=== PATIENT | female | born 1945 | race Caucasian/White ===

== ENCOUNTER 2020-04-23 12:33 | Outpatient (REF) | payer OTHER, SELFPAY ==
[2020-04-23 12:54] LABS: COVID-19 Test Negative (Negative)
== END 2020-04-23 12:34 | disposition home or self-care (01) ==
LOC: HO.EMPCOV 12:33
PROVIDERS: PCP Internal Medicine; Visit Provider Internal Medicine
DX: Z20.828 Contact with and (suspected) exposure to other viral communicable diseases (principal)
CPT/HCPCS: 87635; C9803

== ENCOUNTER 2020-06-04 18:10 | Emergency (ER) | payer MEDICARE, OTHER, SELFPAY ==
[2020-06-04 18:28] VITALS: BP 158/70; PULSE 79; RESP 18; TEMP 36.8; O2SAT 95
[2020-06-04 19:15] VITALS: BP 158/70; PULSE 79; RESP 18; TEMP 36.8; O2SAT 95; BMI 26.6
--- NOTE | 2020-06-04 19:29 | CT_ITS ---
Indication: Fall EXAMINATION: CT cervical spine, CT brain. Axial imaging with coronal and sagittal reformatted images Radiation dose 705 CT brain; No midline shift. There is no mass effect. There is no hemorrhage. The basilar cisterns appear patent. The posterior fossa is grossly within normal limits. No extra-axial collection. No fracture on the bone windows. There is sinus disease. CT cervical spine; Degenerative changes and some reversal of the normal lordosis which may be due to position or spasm. There is no fracture or dislocation. CT/CT head/brain wo con IMPRESSION: Negative acute noncontrast CT of the brain. No fracture or dislocation in the cervical spine. Degenerative changes and reversal of the normal lordosis which may be due to position or spasm
--- NOTE | 2020-06-04 19:29 | CT_ITS ---
Indication: Fall EXAMINATION: CT cervical spine, CT brain. Axial imaging with coronal and sagittal reformatted images Radiation dose 705 CT brain; No midline shift. There is no mass effect. There is no hemorrhage. The basilar cisterns appear patent. The posterior fossa is grossly within normal limits. No extra-axial collection. No fracture on the bone windows. There is sinus disease. CT cervical spine; Degenerative changes and some reversal of the normal lordosis which may be due to position or spasm. There is no fracture or dislocation. CT/CT cervical spine wo con IMPRESSION: Negative acute noncontrast CT of the brain. No fracture or dislocation in the cervical spine. Degenerative changes and reversal of the normal lordosis which may be due to position or spasm
--- NOTE | 2020-06-04 19:35 | CT_ITS ---
EXAMINATION: INDICATION: TRAUMA EXAMINATION: CONTRAST ENHANCED CT OF THE CHEST ABDOMEN PELVIS. 85 ML OMNIPAQUE 350. RADIATION DOSE 849 AXIAL IMAGING WITH CORONAL AND SAGITTAL REFORMATTED IMAGES. CT CHEST; THE THORACIC INLET IS FELT TO BE WITHIN NORMAL LIMITS. CENTRALLY THERE IS NO ADENOPATHY. NO EXTRAVASATION OF CONTRAST IS SEEN HERE. THERE IS NO PNEUMOTHORAX OR EFFUSION IN THE LUNGS. MILD LEFT BASILAR ATELECTASIS OR SCARRING IN THE LINGULA. 5 MM AREA OF GROUNDGLASS CHANGE IN THE RIGHT UPPER LUNG. IMAGE 91 PROBABLE ATELECTASIS OR SCARRING IN THE RIGHT MIDDLE LOBE ANTERIOR. LEFT LUNG; 3 MM NODULE LEFT UPPER LUNG. IMAGE 147 UPPER ABDOMEN; LIVER IS WITHIN NORMAL LIMITS. THE SPLEEN IS WITHIN NORMAL LIMITS. REGION THE PANCREAS IS UNREMARKABLE AREA THE ADRENAL GLANDS IS WITHIN NORMAL LIMITS. PROBABLE EVOLVING CYSTIC CHANGE IN THE KIDNEYS. NONOBSTRUCTING RENAL CALCULI ARE NOTED. THERE IS NO EXTRAVASATION OF CONTRAST. THE BOWEL PATTERN IS FELT TO BE NONOBSTRUCTING. THE BLADDER IS WITHIN NORMAL LIMITS. THE ANTERIOR ABDOMINAL WALL IS WITHIN NORMAL LIMITS. THERE IS NO BULKY ADENOPATHY HERE. NO SUSPICIOUS FLUID COLLECTION. THE PELVIS IS UNREMARKABLE. Prominent uterus for age. Review of the bone windows does not demonstrate evidence for fracture. CT/CT abdomen pelvis w con IMPRESSION: No acute finding in the chest abdomen pelvis. No evidence for visceral injury. No fracture is seen. Prominent uterus for age. Nonobstructing renal calculi Some scattered lung nodularity. If there are risk factors for lung malignancy consider low-dose follow-up scan in 9 months to one year
[2020-06-04 20:00] LABS: MANUAL DIFF FLAG NO
[2020-06-04 20:02] LABS: Basophils Percent Auto 0.2 % (0-2); Hematocrit 38.4 % (37-47); Imm Gran Abs Auto 0.03 X10*3/uL (0.00-0.03); Imm Gran Pct Auto 0.3 % (0.0-0.4); Lymphocytes Absolute Auto 1.1 X10*3/uL (1.2-4.9); Lymphocytes Percent Auto 11.3 % (20-40); Mean Corpuscular HGB Conc 33.9 g/dl (31.0-35.0); Mean Corpuscular Hemoglobin 32.6 pg (27.0-33.0); Mean Corpuscular Volume 96.2 fL (80-98); Mean Platelet Volume 8.7 fL (9.4-12.3); Monocytes Absolute Auto 0.6 X10*3/uL (0.1-1.2); Monocytes Percent Auto 6.5 % (2-11); Neutrophils Absolute Auto 8.1 X10*3/uL (2.0-8.3); Neutrophils Percent Auto 81.7 % (45-73); Platelet Count 200 X10*3/uL (160-400); Red Blood Count 3.99 X10*6/uL (4.20-5.50); Red Cell Distribution Width 12.3 % (11.0-16.0); White Blood Count 9.9 X10*3/uL (4.8-10.8)
[2020-06-04 20:07] LABS: INTERNATIONAL NORM RATIO 1.1 (0.9-1.1); Prothrombin Time 12.5 SEC (10.8-13.0)
[2020-06-04 20:10] LABS: Partial Thromboplastin Time 33.1 SEC (24.1-38.0)
[2020-06-04 20:28] LABS: Alanine Aminotransferase 30 U/L (0-31); Albumin Level 4.4 g/dL (3.5-5.0); Alkaline Phosphatase 90 U/L (39-117); Anion Gap 13 (12-20); Aspartate Amino Transferase 35 U/L (5-31); Bilirubin Total 0.4 mg/dL (0.0-1.0); Blood Urea Nitrogen 23 mg/dL (9-16); Calcium 9.1 mg/dL (8.4-10.2); Carbon Dioxide 26 mmol/L (22-29); Chloride 107 mmol/L (96-108); Estimated Glomerular Filt Rate > 60; Glucose Random 101 mg/dL (60-115); Potassium 4.7 mmol/l (3.3-5.1); Sodium 141 mmol/L (135-145); Total Protein 7.7 g/dL (6.5-8.0)
--- NOTE | 2020-06-04 20:53 | ED.FALL ---
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 On a couch about 2-1/2 feet above the ground trying to fix a current lost her balance and fell backwards hitting the right side of her lower chest and abdomen on the ground and striking her head. She denies any LOC. States she has pain on the right-side rib abdomen area and mild pain posterior head. She denies any LOC. Denies any thinner use. This occurred about 45 minutes prior to arrival.. She denies any prodromal symptoms, no chest pain or dizziness prior to fall. <Andrea Chinchilla NP - Last Filed: 06/14/20 12:46> MD complaint: fall <Andrea Chinchilla NP - Last Filed: 06/14/20 12:46> Onset (ago): minute(s) (45) <Andrea Chinchilla NP - Last Filed: 06/14/20 12:46> Fall from: standing <Andrea Chinchilla NP - Last Filed: 06/14/20 12:46> Fall witnessed: yes, by family <Andrea Chinchilla NP - Last Filed: 06/14/20 12:46> Place fall occurred: home <Andrea Chinchilla NP - Last Filed: 06/14/20 12:46> Loss of consciousness: none <Andrea Chinchilla NP - Last Filed: 06/14/20 12:46> Prolonged down time: no <Nadrea Chinchilla, OCCUPATIONAL HEALTH PHYSICIAN - Last Filed: 06/14/20 12:46> Symptoms prior to fall: none <FATEMHE Juarez Last Filed: 06/14/20 12:46> Location of injury: head, chest and abdomen <FATEMEH Juarez Last Filed: 06/14/20 12:46> Related Data Home Medications: Previous Rx's Medication Instructions Recorded lidocaine [Lidoderm] 1 patch TOPICAL DAILY #15 ea 06/04/20 <FATEMEH Juarez Last Filed: 06/14/20 12:46> Allergies/Adverse Reactions: Allergies Allergy/AdvReac Type Severity Reaction Status Date / Time azithromycin [From ZITHROMAX] Allergy Unknown RASH Unverified 01/30/20 14:48 epinephrine [EPINEPHRINE] Allergy Unknown RAPID Unverified 01/30/20 14:48 HEART RATE <FATEMEH Juarez Last Filed: 06/14/20 12:46> Review of Systems Review of Systems: Constitutional: No Weight loss, No Fever, No Chills, No Night Sweats, No Fatigue, No Malaise ENT/Mouth: No Hearing loss, No Ear Pain, No Nasal Congestion, No Sinus Pain, No Hoarseness, No sore throat, No Rhinorrhea, No Swallowing Difficulty Eyes: No Eye Pain, No Swelling, No Redness, No Foreign Body, No Discharge, No Vision Changes Cardiovascular: No Chest Pain, No SOB, No Dyspnea on Exertion, No Orthopnea, No Edema, No Palpitations Respiratory: No Cough, No Sputum, No Wheezing, No Smoke Exposure, No Dyspnea Gastrointestinal: No Nausea, No Vomiting, No Diarrhea, No Constipation, No Hematochezia, No Melena Genitourinary: no irregular bleeding, No Dysuria, No Urinary Frequency, No Hematuria, No Urinary Incontinence, No Urgency, No Flank Pain, No Urinary Flow Changes, No Hesitancy Musculoskeletal: No joint pain, No Myalgias, No Joint Swelling Skin: No Skin Lesions, No rash Neuro: No Weakness, No Numbness, No Paresthesias, No Loss of Consciousness, No Dizziness, mild parietal Headache Psych: No Social Issues Heme/Lymph: No Bruising, No Bleeding,No Lymphadenopathy Endocrine: No Polyuria, No Polydipsia, No Temperature Intolerance <FATEMEH Juarez Last Filed: 06/14/20 12:46> Yes all other systems are reviewed and are negative <Andrea Chinchilla NP - Last Filed: 06/14/20 12:46> FOR[facility]LY [facility] Past Medical History Medical History: Medical History (Updated 06/05/20 @ 00:00 by Abigail Boles) Asthma Bronchitis IBS (irritable bowel syndrome) <Andrea Chinchilla NP - Last Filed: 06/14/20 12:46> Surgical History: Surgical History (Updated 06/04/20 @ 19:20 by Radha Erickson) H/O knee surgery <Andrea Chinchilla NP - Last Filed: 06/14/20 12:46> Physical Exam Vital Signs: Vital Signs: Last Vital Signs Temp 98.2 F 06/04/20 19:15 Pulse 72 06/04/20 20:54 Resp 16 06/04/20 20:54 BP 172/79 H 06/04/20 20:54 Pulse Ox 95 06/04/20 20:54 Body Mass Index 26.6 Reviewed <Andrea Chinchilla NP - Last Filed: 06/14/20 12:46> Vital Signs: Last Vital Signs Temp 98.2 F 06/04/20 19:15 Pulse 72 06/04/20 20:54 Resp 16 06/04/20 20:54 BP 172/79 H 06/04/20 20:54 Pulse Ox 95 06/04/20 20:54 Body Mass Index 26.6 <Mya Mario NP - Last Filed: 06/04/20 23:03> Vital Signs: Last Vital Signs Temp 98.2 F 06/04/20 19:15 Pulse 72 06/04/20 20:54 Resp 16 06/04/20 20:54 BP 172/79 H 06/04/20 20:54 Pulse Ox 95 06/04/20 20:54 Body Mass Index 26.6 <Jose Chanel MD - Last Filed: 06/17/20 11:27> Const: General: cooperative and healthy appearing; No acute distress or intoxicated appearing <Andrea Chinchilla NP - Last Filed: 06/14/20 12:46> Nutritional Appearance: average body habitus <Andrea Chinchilla NP - Last Filed: 06/14/20 12:46> Orientation/consciousness: patient oriented x3 <Andrea Chinchilla [facility] Last Filed: 06/14/20 12:46> HENMT: Head: Yes normal to inspection <Andrea Chinchilla [facility] Last Filed: 06/14/20 12:46> Ears: hearing grossly normal bilaterally <Andrea Renée - Last Filed: 06/14/20 12:46> Eyes: General: appearance normal, both eyes and all related structures <Andrea Renée [facility] Last Filed: 06/14/20 12:46> Visual [place]: normal visual [place]banks by confrontation <[facility] Renée [facility] Last Filed: 06/14/20 12:46> Neck: Neck: Yes normal visual inspection, No positive Brudzinski's sign, No positive Kernig's sign and No tender <Andrea Renée - Last Filed: 06/14/20 12:46> Thyroid: Thyroid normal <[facility] Chinchilla [facility] Last Filed: 06/14/20 12:46> Chest: Chest palpation & inspection: normal inspection of the chest and tenderness (Mild tender palpation over the right lateral aspect of the inferior) other (Chest wall and right upper quadrant.) <[facility] Renée - Last Filed: 06/14/20 12:46> Resp: Effort & Inspection: normal respiratory effort <Andrea Chinchilla [facility] Last Filed: 06/14/20 12:46> Auscultation: clear to auscultation bilaterally <Andrea Renée [facility] Last Filed: 06/14/20 12:46> Cardio: Jugular venous distension: no JVD <[facility] Chinchilla, - Last Filed: 06/14/20 12:46> Rhythm: regular rhythm <[facility] Chinchilla [facility] Last Filed: 06/14/20 12:46> Heart sounds: S1 normal heart sound present and S2 normal heart sound present <[facility] Chinchilla, OCCUPATIONAL HEALTH PHYSICIAN - Last Filed: 06/14/20 12:46> GI: Inspection: Yes normal to inspection <[facility] Chinchilla - Last Filed: 06/14/20 12:46> Percussion: Yes normal to percussion <[facility] Chinchilla, OCCUPATIONAL HEALTH PHYSICIAN - Last Filed: 06/14/20 12:46> Auscultation: normal bowel sounds <Andrea Chinchilla NP - Last Filed: 06/14/20 12:46> : General: Yes no CVA tenderness <Andrea Chinchilla NP - Last Filed: 06/14/20 12:46> Back/Spine/Pelvis: Back: no CVA tenderness <Andrea Chinchilla NP - Last Filed: 06/14/20 12:46> Skin: General skin exam: no rashes or lesions noted <Andrea Chinchilla NP - Last Filed: 06/14/20 12:46> Neuro: General: patient oriented x3 <Andrea Chinchilla NP - Last Filed: 06/14/20 12:46> Extrem: General: Yes normal to inspection <Andrea Chinchilla NP - Last Filed: 06/14/20 12:46> Course Course Course Narrative: 2300-imaging unremarkable with the exception of incidental pulmonary nodules. Patient was told of this and she was given a copy of the report. Will be discharged home with PCP follow-up. Reviewed worrisome signs and symptoms and when to return to the emergency department. Comfortable discharge home. <Mya Mario NP - Last Filed: 06/04/20 23:03> I have reviewed the chart <Jose Chanel MD - Last Filed: 06/17/20 11:27> Reevaluation(s) Reevaluation #1: 2110 Labs overall stable. Cleared for CT as ordered. Signed out to night team pending disposition. <Andrea Chinchilla NP - Last Filed: 06/14/20 12:46> MDM - Fall MDM Narrative Medical decision making narrative: In review 75-year-old female otherwise relatively healthy and independent fall from about 2-1/2 feet onto her right side did hit her head there was no LOC having pain at the frontal area of her scalp and a right-sided chest and abdomen from hitting it on the computer table and the ground. Will check labs, CT head neck rule out acute fracture, CT chest for rib fracture, CT abdomen for acute intra-abdominal process. States if she holds still not much pain at this time okay with trying just Tylenol and lidocaine. States she does not wanting stronger. <Andrea Chinchilla NP - Last Filed: 06/14/20 12:46> Differential Diagnosis Differential diagnosis: Likely fracture (Rib fracture, contusion) and concussion without loss of consciousness; Unlikely syncope, dislocation, compression fracture and concussion with loss of consciousness <Andrearomeo Chinchilla NP - Last Filed: 06/14/20 12:46> Medical Records Attestation: I reviewed the patient's medical records. <Andrea ChinchillaFATEMEH guzmán - Last Filed: 06/14/20 12:46> Lab Data Attestation: I reviewed the patient's lab results. <Andrearomeo Chinchilla NP - Last Filed: 06/14/20 12:46> Result diagrams: : 06/04/20 19:54 06/04/20 19:54 <Andrearomeo Chinchilla NP - Last Filed: 06/14/20 12:46> Labs: Lab Results 06/04/20 06/04/20 06/04/20 Range/Units 19:54 19:54 19:54 WBC 9.9 (4.8-10.8) X10*3/uL RBC 3.99 L (4.20-5.50) X10*6/uL Hgb 13.0 (12.0-16.0) g/dl Hct 38.4 (37-47) % MCV 96.2 (80-98) fL MCH 32.6 (27.0-33.0) pg MCHC 33.9 (31.0-35.0) g/dl RDW 12.3 (11.0-16.0) % Plt Count 200 (160-400) X10*3/uL MPV 8.7 L (9.4-12.3) fL Immature Gran % (Auto) 0.3 (0.0-0.4) % Neut % (Auto) 81.7 H (45-73) % Lymph % (Auto) 11.3 L (20-40) % Blanco % (Auto) 6.5 (2-11) % Eos % (Auto) 0.0 (0-4) % Baso % (Auto) 0.2 (0-2) % Lymph # (Auto) 1.1 L (1.2-4.9) X10*3/uL Blanco # (Auto) 0.6 (0.1-1.2) X10*3/uL Eos # (Auto) 0.0 (0.0-0.4) X10*3/uL Baso # (Auto) 0.0 (0.0-0.2) X10*3/uL Abs Immat Gran (auto) 0.03 (0.00-0.03) X10*3/uL Absolute Neuts (auto) 8.1 (2.0-8.3) X10*3/uL Absolute Nucleated RBC 0.000 (0.0-0.012) X10*3/uL Nucleated RBC % (auto) 0.0 (0.0-0.2) /100WBC PT 12.5 (10.8-13.0) SEC INR 1.1 (0.9-1.1) APTT 33.1 (24.1-38.0) SEC Sodium 141 (135-145) mmol/L Potassium 4.7 (3.3-5.1) mmol/l Chloride 107 (96-108) mmol/L Carbon Dioxide 26 (22-29) mmol/L Anion Gap 13 (12-20) BUN 23 H (9-16) mg/dL Creatinine 0.70 (0.5-1.4) mg/dL Estim Creat Clear Calc 74.0 Estimated GFR > 60 Random Glucose 101 (60-115) mg/dL Calcium 9.1 (8.4-10.2) mg/dL Total Bilirubin 0.4 (0.0-1.0) mg/dL AST 35 H (5-31) U/L ALT 30 (0-31) U/L Alkaline Phosphatase 90 (39-117) U/L Total Protein 7.7 (6.5-8.0) g/dL Albumin 4.4 (3.5-5.0) g/dL <Andrea Chinchilla NP - Last Filed: 06/14/20 12:46> Lab Results 06/04/20 06/04/20 06/04/20 Range/Units 19:54 19:54 19:54 WBC 9.9 (4.8-10.8) X10*3/uL RBC 3.99 L (4.20-5.50) X10*6/uL Hgb 13.0 (12.0-16.0) g/dl Hct 38.4 (37-47) % MCV 96.2 (80-98) fL MCH 32.6 (27.0-33.0) pg MCHC 33.9 (31.0-35.0) g/dl RDW 12.3 (11.0-16.0) % Plt Count 200 (160-400) X10*3/uL MPV 8.7 L (9.4-12.3) fL Immature Gran % (Auto) 0.3 (0.0-0.4) % Neut % (Auto) 81.7 H (45-73) % Lymph % (Auto) 11.3 L (20-40) % Blanco % (Auto) 6.5 (2-11) % Eos % (Auto) 0.0 (0-4) % Baso % (Auto) 0.2 (0-2) % Lymph # (Auto) 1.1 L (1.2-4.9) X10*3/uL Blanco # (Auto) 0.6 (0.1-1.2) X10*3/uL Eos # (Auto) 0.0 (0.0-0.4) X10*3/uL Baso # (Auto) 0.0 (0.0-0.2) X10*3/uL Abs Immat Gran (auto) 0.03 (0.00-0.03) X10*3/uL Absolute Neuts (auto) 8.1 (2.0-8.3) X10*3/uL Absolute Nucleated RBC 0.000 (0.0-0.012) X10*3/uL Nucleated RBC % (auto) 0.0 (0.0-0.2) /100WBC PT 12.5 (10.8-13.0) SEC INR 1.1 (0.9-1.1) APTT 33.1 (24.1-38.0) SEC Sodium 141 (135-145) mmol/L Potassium 4.7 (3.3-5.1) mmol/l Chloride 107 (96-108) mmol/L Carbon Dioxide 26 (22-29) mmol/L Anion Gap 13 (12-20) BUN 23 H (9-16) mg/dL Creatinine 0.70 (0.5-1.4) mg/dL Estim Creat Clear Calc 74.0 Estimated GFR > 60 Random Glucose 101 (60-115) mg/dL Calcium 9.1 (8.4-10.2) mg/dL Total Bilirubin 0.4 (0.0-1.0) mg/dL AST 35 H (5-31) U/L ALT 30 (0-31) U/L Alkaline Phosphatase 90 (39-117) U/L Total Protein 7.7 (6.5-8.0) g/dL Albumin 4.4 (3.5-5.0) g/dL <Mya Mario NP - Last Filed: 06/04/20 23:03> Lab Results 06/04/20 06/04/20 06/04/20 Range/Units 19:54 19:54 19:54 WBC 9.9 (4.8-10.8) X10*3/uL RBC 3.99 L (4.20-5.50) X10*6/uL Hgb 13.0 (12.0-16.0) g/dl Hct 38.4 (37-47) % MCV 96.2 (80-98) fL MCH 32.6 (27.0-33.0) pg MCHC 33.9 (31.0-35.0) g/dl RDW 12.3 (11.0-16.0) % Plt Count 200 (160-400) X10*3/uL MPV 8.7 L (9.4-12.3) fL Immature Gran % (Auto) 0.3 (0.0-0.4) % Neut % (Auto) 81.7 H (45-73) % Lymph % (Auto) 11.3 L (20-40) % Blanco % (Auto) 6.5 (2-11) % Eos % (Auto) 0.0 (0-4) % Baso % (Auto) 0.2 (0-2) % Lymph # (Auto) 1.1 L (1.2-4.9) X10*3/uL Blanco # (Auto) 0.6 (0.1-1.2) X10*3/uL Eos # (Auto) 0.0 (0.0-0.4) X10*3/uL Baso # (Auto) 0.0 (0.0-0.2) X10*3/uL Abs Immat Gran (auto) 0.03 (0.00-0.03) X10*3/uL Absolute Neuts (auto) 8.1 (2.0-8.3) X10*3/uL Absolute Nucleated RBC 0.000 (0.0-0.012) X10*3/uL Nucleated RBC % (auto) 0.0 (0.0-0.2) /100WBC PT 12.5 (10.8-13.0) SEC INR 1.1 (0.9-1.1) APTT 33.1 (24.1-38.0) SEC Sodium 141 (135-145) mmol/L Potassium 4.7 (3.3-5.1) mmol/l Chloride 107 (96-108) mmol/L Carbon Dioxide 26 (22-29) mmol/L Anion Gap 13 (12-20) BUN 23 H (9-16) mg/dL Creatinine 0.70 (0.5-1.4) mg/dL Estim Creat Clear Calc 74.0 Estimated GFR > 60 Random Glucose 101 (60-115) mg/dL Calcium 9.1 (8.4-10.2) mg/dL Total Bilirubin 0.4 (0.0-1.0) mg/dL AST 35 H (5-31) U/L ALT 30 (0-31) U/L Alkaline Phosphatase 90 (39-117) U/L Total Protein 7.7 (6.5-8.0) g/dL Albumin 4.4 (3.5-5.0) g/dL <Jose Chanel MD - Last Filed: 06/17/20 11:27> Discharge Plan Discharge Clinical Impression: Contusion <Andrea Chinchilla NP - Last Filed: 06/14/20 12:46> Patient Disposition: Home, Self-Care <Andrea Chinchilla NP - Last Filed: 06/14/20 12:46> Instructions: Contusion in Adults (ED) <Andrea Chinchilla NP - Last Filed: 06/14/20 12:46> Additional Instructions: Your CT scan shows several pulmonary nodules. These are incidental findings noted on your CT. You were given a copy of the report and you can follow-up with her primary care doctor in regards to this. <Andrea Chinchilla NP - Last Filed: 06/14/20 12:46> Prescriptions: New lidocaine [Lidoderm] 5 % adhesive patch,medicated 1 patch topical DAILY Qty: 15 RF: 0 <Andrea Chinchilla NP - Last Filed: 06/14/20 12:46> Referrals: Geronimo Goodson MD [Primary Care Provider] - 2 days <Andrea Chinchilla NP - Last Filed: 06/14/20 12:46> Interventions: ED Discharge Assessment Last Done: 06/04/20 23:16 <Andrea Chinchilla NP - Last Filed: 06/14/20 12:46> Discharge Date/Time: 06/04/20 23:21 <Andrea Chinchilla NP - Last Filed: 06/14/20 12:46>
[2020-06-04 20:54] VITALS: BP 172/79; PULSE 72; RESP 16; O2SAT 95
[2020-06-04] MEDS: Acetaminophen 325 MG TABLET 975 MG PO (20:57)
[2020-06-04] MEDS: Lidocaine 4 % Patch ADH..PATCH 1 PATCH TRANSDERMA (20:58)
[2020-06-04] MEDS: iohexoL 350 MG/ML 100 ML INFUS..BTL IV (21:25)
--- NOTE | 2020-06-04 22:58 | P.EN_ITS ---
Event Note Date of Service: 06/04/20 Event Note: Pt developed A. fib with RVR w HR in the 120s to 130s. Confirmed w ith EKG. Pt given lopressor with response, and one dose of Lovenox 1mg/KG will consult cardio and obtain echo
== END 2020-06-04 23:21 | disposition home or self-care (01) ==
PROVIDERS: Nurse Practitioner Primary Care; Emergency Provider Emergency Medicine; PCP Internal Medicine
DX: S20.213A Contusion of bilateral front wall of thorax, initial encounter (principal); R91.1 Solitary pulmonary nodule; M54.2 Cervicalgia; G44.309 Post-traumatic headache, unspecified, not intractable; M54.6 Pain in thoracic spine; W19.XXXA Unspecified fall, initial encounter; Y93.9 Activity, unspecified; Y92.9 Unspecified place or not applicable; Y99.9 Unspecified external cause status
CPT/HCPCS: 36415; 70450; 71260; 72125; 74177; 80053; 85025; 85610; 85730; 99284; Q9967

== ENCOUNTER 2020-06-08 08:14 | Outpatient (REF) | payer MEDICARE, OTHER, SELFPAY ==
[2020-06-08 09:05] LABS: MANUAL DIFF FLAG NO
[2020-06-08 09:09] LABS: Basophils Percent Auto 0.6 % (0-2); Eosinophils Absolute Auto 0.1 X10*3/uL (0.0-0.4); Hematocrit 36.3 % (37-47); Imm Gran Abs Auto 0.02 X10*3/uL (0.00-0.03); Imm Gran Pct Auto 0.3 % (0.0-0.4); Lymphocytes Absolute Auto 2.9 X10*3/uL (1.2-4.9); Lymphocytes Percent Auto 44.3 % (20-40); Mean Corpuscular HGB Conc 33.1 g/dl (31.0-35.0); Mean Corpuscular Hemoglobin 32.1 pg (27.0-33.0); Mean Corpuscular Volume 97.1 fL (80-98); Mean Platelet Volume 9.1 fL (9.4-12.3); Monocytes Absolute Auto 0.6 X10*3/uL (0.1-1.2); Neutrophils Absolute Auto 2.9 X10*3/uL (2.0-8.3); Neutrophils Percent Auto 43.8 % (45-73); Platelet Count 183 X10*3/uL (160-400); Red Blood Count 3.74 X10*6/uL (4.20-5.50); Red Cell Distribution Width 12.4 % (11.0-16.0); White Blood Count 6.6 X10*3/uL (4.8-10.8)
[2020-06-08 09:11] LABS: Glucose Urine UA NEG (NEG); Leukocyte Esterase Urine TRACE (NEG); Nitrite Urine NEG (NEG); PH 6.5 (5.0-8.0); Urine Blood 2+ (NEG); Urine Ketones NEG (NEG); Urine Protein NEG (NEG-TRACE)
[2020-06-08 09:12] LABS: Appearance Urine HAZY; Color Urine YELLOW
[2020-06-08 09:20] LABS: Mucus Urine 1+ /LPF; Squamous Epithelial Cell Urine 1+ /LPF
[2020-06-08 09:31] LABS: Estimated Average Glucose 108 mg/dL; Hemoglobin A1c % 5.4 %
[2020-06-08 09:33] LABS: Creatinine Urine 132.96 mg/dL; Microalbum/Creatinine Ratio Ur 23.3 ug/mg cr
[2020-06-08 09:36] LABS: Alanine Aminotransferase 22 U/L (0-31); Albumin Level 3.9 g/dL (3.5-5.0); Alkaline Phosphatase 74 U/L (39-117); Anion Gap 14 (12-20); Aspartate Amino Transferase 21 U/L (5-31); Bilirubin Total 0.6 mg/dL (0.0-1.0); Blood Urea Nitrogen 16 mg/dL (9-16); Calcium 8.7 mg/dL (8.4-10.2); Carbon Dioxide 26 mmol/L (22-29); Chloride 107 mmol/L (96-108); Cholesterol 165 mg/dL; Estimated Glomerular Filt Rate > 60; Glucose Fasting 79 mg/dL (60-99); HDL Cholesterol 60 mg/dL; LDL Cholesterol Calculated 92 mg/dl; Potassium 3.8 mmol/l (3.3-5.1); Sodium 143 mmol/L (135-145); Total Protein 6.8 g/dL (6.5-8.0); Triglycerides 68 mg/dL
[2020-06-08 09:57] LABS: Thyroid Stimulating Hormone 1.12 uIU/mL (0.32-4.0)
== END 2020-06-08 08:15 | disposition home or self-care (01) ==
LOC: HO.LAB 08:14
PROVIDERS: PCP Internal Medicine; Visit Provider Internal Medicine
DX: E03.9 Hypothyroidism, unspecified (principal); R73.03 Prediabetes; R31.9 Hematuria, unspecified
CPT/HCPCS: 36415; 80053; 80061; 81001; 81003; 82043; 83036; 84443; 85025

== ENCOUNTER 2020-06-17 11:15 | Outpatient (REF) | payer MEDICARE, OTHER, SELFPAY | END 2020-06-17 11:16 | disposition home or self-care (01) | LOC: HO.LAB 11:15 | PROVIDERS: Visit Provider Internal Medicine | DX: Z20.822 Contact with and (suspected) exposure to COVID-19 (principal) | CPT/HCPCS: 36415; C9803; U0003; U0005 ==

== ENCOUNTER 2020-07-01 08:34 | Outpatient (REF) | payer MEDICARE, OTHER, SELFPAY ==
--- NOTE | ~2020-07-01 | MM_ITS ---
EXAMINATION: BONE DENSITOMETRY CLINICAL INDICATION: Menopausal. COMPARISON: Previous BD dated 06/21/2018 and baseline BD dated 02/11/2016. TECHNIQUE: Using a [employer] DXA System (software version: 13.1) manufactured by [employer]og[employer], dual-energy x-ray absorptiometry was performed of the lumbar spine and left hip. The images are of good technical quality. Summary results are attached. FINDINGS: AP SPINE L1-L4: Current: BMD 1.239 g/cm2, Z-score 1.8, T-score 0.5, normal, 5.3% decrease from previous, 5.3% decrease from baseline (<5% change is not significant). Prior: BMD 1.308 g/cm2. Baseline: BMD 1.308 g/cm2. LEFT FEMUR, NECK: Current: BMD 0.836 g/cm2, Z-score 0.1, T-score -1.5, osteopenia. Prior: BMD 0.854 g/cm2. Baseline: BMD 0.918 g/cm2. LEFT FEMUR, TOTAL: Current: BMD 0.967 g/cm2, Z-score 1.0, T-score -0.3, normal, 3.2% increase from previous, 1.1% decrease from baseline (<5% change is not significant). Prior: BMD 0.937 g/cm2. Baseline: BMD 0.978 g/cm2. IDENTIFIED RISK FACTORS: Menopause, history of fracture (adult). HISTORY OF FRACTURE: Elbow. MEDICATIONS: Calcium supplements or multivitamin. MM/XR DEXA axial skeleton IMPRESSION: 1. DIAGNOSIS: Osteopenia based on the lowest T-score value of -1.5 in the femoral neck applying World Health Organization criteria. 2. 10-YEAR FRACTURE RISK PREDICTION, FRAX: Major osteoporotic fracture (clinical spine, forearm, hip or shoulder) 16.3%. Hip fracture 2.6%. 3. Treatment Recommendations: NOF guidelines recommend consideration for treatment in postmenopausal women and men age 50 and older presenting with the following: -A hip or vertebral (clinical or morphometric) fracture. -T-score less than or equal to -2.5 at the femoral neck or spine after appropriate evaluation to exclude secondary causes. -Low bone mass at the hip or spine and a 10-year fracture probability by FRAX of greater than or equal to 3% for hip fracture or greater than or equal to 20% for major osteoporotic fracture based on the [place] adapted WHO algorithm. 4. Other Recommendations: All treatment decisions require clinical judgment and consideration of individual patient factors, including patient preferences, comorbidities, previous drug use, risk factors not captured in the FRAX model (e.g. frailty, falls, vitamin D deficiency, increased bone turnover, interval significant decline in bone density) and possible under or overestimation of fracture risk by FRAX. Additional medical evaluation for secondary cause of low bone mineral density may be appropriate. FUTURE SCAN RECOMMENDATION: People with diagnosed cases of osteoporosis or at high risk for fracture should have regular bone mineral density tests. For patients eligible for Medicare, routine testing is allowed once every 2 years. The testing frequency can be increased to one year for patients who have rapidly progressing disease, those who are receiving or discontinuing medical therapy to restore bone mass, or have additional risk factors.
== END 2020-07-01 08:35 | disposition home or self-care (01) ==
LOC: HO.MAMMO 08:34
PROVIDERS: PCP Internal Medicine; Visit Provider Internal Medicine
DX: Z13.820 Encounter for screening for osteoporosis (principal); N95.8 Other specified menopausal and perimenopausal disorders
CPT/HCPCS: 77080

== ENCOUNTER 2020-09-18 15:32 | Outpatient (REF) | payer MEDICARE, OTHER, SELFPAY ==
[2020-09-18 15:36] LABS: MANUAL DIFF FLAG NO
[2020-09-18 15:49] LABS: Basophils Absolute Auto 0.1 X10*3/uL (0.0-0.2); Basophils Percent Auto 0.9 % (0-2); Eosinophils Absolute Auto 0.8 X10*3/uL (0.0-0.4); Eosinophils Percent Auto 12.1 % (0-4); Hematocrit 36.7 % (37-47); Hemoglobin 12.2 g/dl (12.0-16.0); Imm Gran Abs Auto 0.03 X10*3/uL (0.00-0.03); Imm Gran Pct Auto 0.4 % (0.0-0.4); Lymphocytes Absolute Auto 2.2 X10*3/uL (1.2-4.9); Lymphocytes Percent Auto 31.8 % (20-40); Mean Corpuscular HGB Conc 33.2 g/dl (31.0-35.0); Mean Corpuscular Hemoglobin 31.5 pg (27.0-33.0); Mean Corpuscular Volume 94.8 fL (80-98); Mean Platelet Volume 9.5 fL (9.4-12.3); Monocytes Absolute Auto 0.7 X10*3/uL (0.1-1.2); Monocytes Percent Auto 9.8 % (2-11); Neutrophils Absolute Auto 3.1 X10*3/uL (2.0-8.3); Platelet Count 196 X10*3/uL (160-400); Red Blood Count 3.87 X10*6/uL (4.20-5.50); Red Cell Distribution Width 12.1 % (11.0-16.0); White Blood Count 6.9 X10*3/uL (4.8-10.8)
== END 2020-09-18 15:33 | disposition home or self-care (01) ==
LOC: HO.LNP 15:32
PROVIDERS: Visit Provider Internal Medicine
DX: R06.02 Shortness of breath (principal)
CPT/HCPCS: 85025

== ENCOUNTER 2020-09-25 10:39 | Outpatient (REF) | payer MEDICARE, OTHER, SELFPAY ==
--- NOTE | ~2020-09-25 | XR_ITS ---
EXAMINATION: XR CHEST CLINICAL INFORMATION: Mild intermittent asthma without complication. COMPARISON: 04/26/2017, 11/15/2016 TECHNIQUE: 2 views of the chest were obtained. FINDINGS: There is mild hyperinflation similar to prior study 2017. There is no pneumothorax, airspace consolidation, pleural reaction, or effusion. The costophrenic sulci are clear. The heart is normal in size. The hilar and mediastinal contours and visualized bony structures are stable. XR/XR chest 2V IMPRESSION: Mild hyperinflation similar to prior exam 2017. No acute intrathoracic disease.
== END 2020-09-25 10:40 | disposition home or self-care (01) ==
LOC: HO.XRAY 10:39
PROVIDERS: PCP Internal Medicine; Visit Provider Internal Medicine
DX: J45.20 Mild intermittent asthma, uncomplicated (principal)
CPT/HCPCS: 71046

== ENCOUNTER → 2020-11-27 09:20 | Outpatient (BNVA) | payer MEDICARE, OTHER, SELFPAY | PROVIDERS: PCP Internal Medicine; Visit Provider Hospitalist | DX: J45.40 Moderate persistent asthma, uncomplicated (principal); J30.9 Allergic rhinitis, unspecified; R91.8 Other nonspecific abnormal finding of lung field | CPT/HCPCS: 99202 ==

== ENCOUNTER 2021-01-20 13:31 | Outpatient (REF) | payer MEDICARE, OTHER, SELFPAY ==
--- NOTE | ~2021-01-20 | CT_ITS ---
EXAMINATION: CT CHEST WITHOUT CONTRAST CLINICAL INFORMATION: Follow-up pulmonary nodule COMPARISON: Previous chest x-ray most recent September [address] May 2020 TECHNIQUE: Multidetector volumetric CT imaging of the chest was done. Axial MIP volume rendering provided. Sagittal and coronal reformatted images were obtained. This CT examination was performed using dose optimization techniques as appropriate, variously including the following: *Automated exposure control *Adjustment of mA and/or kV according to patient size (this includes techniques or standardized protocols for targeted exams where dose is matched to indication/reason for exam; i.e. extremities or head) *Use of iterative reconstruction technique DLP: 168 mGy-cm FINDINGS: LUNGS: There is an abnormal parenchymal density in the posterior medial right lower lobe adjacent to bony osteophyte probably representing scarring or chronic subsegmental atelectasis. This measures 0.5 x 1.5 cm in transverse and AP dimension axial image 504 series 4 and appears unchanged. There is a 3 mm calcified left lower lobe nodule posterior costophrenic sulcus axial image 511 series 4 that is able. There is a tiny probably calcified 1 mm right lower lobe nodule axial image 528 series 4 that is stable. There is linear scarring or subsegmental atelectasis at the lung bases. The lungs are otherwise clear. MEDIASTINUM: The heart does not appear enlarged. There is mild coronary artery calcification. There is mitral annular calcification. There is no pericardial effusion. There are no enlarged hilar or mediastinal lymph nodes. PLEURA: There is no pleural effusion. No pleural mass or thickening. AXILLA: No lymphadenopathy. UPPER ABDOMEN: There are small bilateral renal stones, left greater than right. There is a small calcification in the liver and in the spleen. OSSEOUS STRUCTURES: There are degenerative changes of the spine. There is a mild thoracolumbar scoliosis. CT/CT chest wo con IMPRESSION: No left upper lobe nodule seen. Small stable calcified bilateral lower lobe pulmonary nodules probably representing calcified granulomas. Abnormal density in the posterior medial right lower lobe adjacent to bony osteophyte probably representing scar or chronic subsegmental atelectasis. Renal stones.
== END 2021-01-20 13:32 | disposition home or self-care (01) ==
LOC: HO.CT 13:31
PROVIDERS: Visit Provider Hospitalist
DX: R91.8 Other nonspecific abnormal finding of lung field (principal)
CPT/HCPCS: 71250

== ENCOUNTER → 2021-03-01 10:21 | Outpatient (BNVA) | payer MEDICARE, OTHER, SELFPAY | PROVIDERS: PCP Internal Medicine; Visit Provider Hospitalist | DX: J45.40 Moderate persistent asthma, uncomplicated (principal); J30.9 Allergic rhinitis, unspecified; R91.8 Other nonspecific abnormal finding of lung field | CPT/HCPCS: 99212 ==

== ENCOUNTER 2021-07-30 10:31 | Outpatient (REF) | payer MEDICARE, OTHER, SELFPAY ==
[2021-07-30 10:33] LABS: MANUAL DIFF FLAG NO
[2021-07-30 10:39] LABS: Basophils Absolute Auto 0.1 X10*3/uL (0.0-0.2); Basophils Percent Auto 0.8 % (0-2); Eosinophils Absolute Auto 0.7 X10*3/uL (0.0-0.4); Eosinophils Percent Auto 12.2 % (0-4); Hematocrit 37.4 % (37.0-47.0); Hemoglobin 12.5 g/dl (12.0-16.0); Imm Gran Abs Auto 0.03 X10*3/uL (0.00-0.03); Imm Gran Pct Auto 0.5 % (0.0-0.4); Lymphocytes Absolute Auto 1.7 X10*3/uL (1.2-4.9); Lymphocytes Percent Auto 27.8 % (20-40); Mean Corpuscular HGB Conc 33.4 g/dl (31.0-35.0); Mean Corpuscular Hemoglobin 32.1 pg (27.0-33.0); Mean Corpuscular Volume 95.9 fL (80.0-98.0); Mean Platelet Volume 9.6 fL (9.4-12.3); Monocytes Absolute Auto 0.7 X10*3/uL (0.1-1.2); Monocytes Percent Auto 11.2 % (2-11); Neutrophils Absolute Auto 2.9 x10*3/uL (2.0-8.3); Neutrophils Percent Auto 47.5 % (45-73); Platelet Count 192 X10*3/uL (160-400); Red Cell Distribution Width 12.3 % (11.0-16.0); White Blood Count 6.1 X10*3/uL (4.8-10.8)
[2021-07-30 10:44] LABS: Appearance Urine HAZY; Color Urine YELLOW; Glucose Urine UA NEG (NEG); Leukocyte Esterase Urine NEG (NEG); Nitrite Urine NEG (NEG); Specific Gravity - Urine >= 1.030 (1.005-1.025); Urine Blood 2+ (NEG); Urine Ketones NEG (NEG); Urine Protein NEG (NEG-TRACE)
[2021-07-30 10:55] LABS: Alanine Aminotransferase 20 U/L (0-31); Alkaline Phosphatase 96 U/L (39-117); Anion Gap 13 (12-20); Aspartate Amino Transferase 24 U/L (5-31); Bilirubin Total 0.7 mg/dL (0.0-1.0); Blood Urea Nitrogen 20 mg/dL (9-16); Calcium 9.3 mg/dL (8.4-10.2); Carbon Dioxide 23 mmol/L (22-29); Chloride 110 mmol/L (96-108); Cholesterol 145 mg/dL; Estimated Glomerular Filt Rate > 60; Glucose Fasting 104 mg/dL (60-99); HDL Cholesterol 55 mg/dL; LDL Cholesterol Calculated 80 mg/dl; Potassium 4.1 mmol/L (3.3-5.1); Sodium 142 mmol/L (135-145); Triglycerides 50 mg/dL
[2021-07-30 11:00] LABS: Creatinine Urine 128.91 mg/dL; Microalbum/Creatinine Ratio Ur 10.8 ug/mg cr
[2021-07-30 11:14] LABS: Bacteria Urine TRACE /LPF; Calcium Oxalate Crystals Urine 2+ /LPF; Mucus Urine 1+ /LPF; RBC Urine 0-2 /HPF (0); Squamous Epithelial Cell Urine 1+ /LPF; WBC Urine 0-2 /HPF (0-4)
[2021-07-30 11:18] LABS: Estimated Average Glucose 111 mg/dL; Hemoglobin A1c % 5.5 %; TSH reflex Free T4 0.22 uIU/mL (0.32-4.0)
[2021-07-30 11:49] LABS: Free T4 (Free Thyroxine) 1.27 ng/dL (0.71-1.85)
== END 2021-07-30 10:32 | disposition home or self-care (01) ==
LOC: HO.LNP 10:31
PROVIDERS: Visit Provider Internal Medicine
DX: R73.03 Prediabetes (principal); E03.9 Hypothyroidism, unspecified; I10 Essential (primary) hypertension
CPT/HCPCS: 80053; 80061; 81001; 82043; 83036; 84439; 84443; 85025

== ENCOUNTER 2021-08-11 12:10 | Outpatient (REF) | payer MEDICARE, OTHER, SELFPAY ==
--- NOTE | ~2021-08-11 | XR_ITS ---
EXAMINATION: XR HIP, LEFT XR SACRUM/COCCYX CLINICAL INFORMATION: Pain, hip pain COMPARISON: CT abdomen and pelvis 06/04/2020. TECHNIQUE: Left hip is imaged in AP and frog-lateral projections. Sacrum and coccyx are imaged together in total of 3 views including both areas on each image. FINDINGS: Left hip: No fracture or dislocation or destructive process. No joint narrowing or erosive change or visible chondrocalcinosis. There is some minor spurring from the lateral left ischial tuberosity and spurring at the greater trochanter similar to the CT study. Soft tissue planes are unremarkable. Sacrum/coccyx: No fracture, diastases, or destructive process. The SI joints show no diastases or ankylosis or subchondral sclerosis. No erosive change. There are degenerative disc changes again noted lumbosacral junction with disc narrowing and endplate sclerosis and vertebral spurring. There is a borderline spondylolisthesis again seen at L4-L5 and facet degeneration at L4-S1. Bowel gas unremarkable. XR/XR hip LT min 2V IMPRESSION: 1. Degenerative changes lower lumbar spine and lumbosacral junction. 2. Borderline spondylolisthesis L4-L5 similar to CT 2020. 3. No sacroiliitis or diastases. 4. Spurring greater trochanter left hip. No joint narrowing or erosive change.
--- NOTE | ~2021-08-11 | XR_ITS ---
EXAMINATION: XR HIP, LEFT XR SACRUM/COCCYX CLINICAL INFORMATION: Pain, hip pain COMPARISON: CT abdomen and pelvis 06/04/2020. TECHNIQUE: Left hip is imaged in AP and frog-lateral projections. Sacrum and coccyx are imaged together in total of 3 views including both areas on each image. FINDINGS: Left hip: No fracture or dislocation or destructive process. No joint narrowing or erosive change or visible chondrocalcinosis. There is some minor spurring from the lateral left ischial tuberosity and spurring at the greater trochanter similar to the CT study. Soft tissue planes are unremarkable. Sacrum/coccyx: No fracture, diastases, or destructive process. The SI joints show no diastases or ankylosis or subchondral sclerosis. No erosive change. There are degenerative disc changes again noted lumbosacral junction with disc narrowing and endplate sclerosis and vertebral spurring. There is a borderline spondylolisthesis again seen at L4-L5 and facet degeneration at L4-S1. Bowel gas unremarkable. XR/XR sacrum coccyx min 2V IMPRESSION: 1. Degenerative changes lower lumbar spine and lumbosacral junction. 2. Borderline spondylolisthesis L4-L5 similar to CT 2020. 3. No sacroiliitis or diastases. 4. Spurring greater trochanter left hip. No joint narrowing or erosive change.
== END 2021-08-11 12:11 | disposition home or self-care (01) ==
LOC: HO.XRAY 12:10
PROVIDERS: PCP Internal Medicine; Visit Provider Internal Medicine
DX: M25.551 Pain in right hip (principal); M25.552 Pain in left hip
CPT/HCPCS: 72220; 73502

== ENCOUNTER 2021-12-22 13:04 | Outpatient (REF) | payer MEDICARE, OTHER, SELFPAY ==
--- NOTE | ~2021-12-22 | XR_ITS ---
EXAMINATION: XR LUMBOSACRAL SPINE WITH OBLIQUES CLINICAL INFORMATION: Left-sided lower back pain. COMPARISON: None. TECHNIQUE: AP, both oblique, and lateral views of the lumbar spine. Lateral view of the lumbosacral junction. FINDINGS: There is normal lumbar lordosis. There is grade 1 anterolisthesis of 4 L5 and grade 1 retrolisthesis L2 over L3. There is loss of L1-L2, L2-L3 and L5-S1 disc heights. There is mild ventral spondylosis throughout lumbar spine. No acute fracture, lytic or sclerotic process seen. On oblique views, there is no pars defect or listhesis. There is mild facet joint arthropathy L4-L5 and L5-S1 disc levels. XR/XR lumbar spine 4V min IMPRESSION: Grade 1 anterolisthesis L4 over L5 and grade 1 retrolisthesis L2 over L3. There are degenerative disc changes and ventral spondylosis. No pars defect seen. There is bilateral facet joint arthropathy L4-L5 and L5-S1 disc levels.
== END 2021-12-22 13:05 | disposition home or self-care (01) ==
LOC: HO.XRAY 13:04
PROVIDERS: PCP Internal Medicine; Visit Provider Student in an Organized Health Care Education/Training Program
DX: M47.816 Spondylosis without myelopathy or radiculopathy, lumbar region (principal)
CPT/HCPCS: 72110

== ENCOUNTER 2022-01-14 12:00 | Outpatient (RCR) | payer MEDICARE, OTHER, SELFPAY | END 2022-01-14 13:46 | disposition home or self-care (01) | LOC: HO.PT 12:00 | PROVIDERS: PCP Internal Medicine; Visit Provider Student in an Organized Health Care Education/Training Program | DX: M47.816 Spondylosis without myelopathy or radiculopathy, lumbar region (principal) | CPT/HCPCS: 97110; 97116; 97140; 97150; 97162; 97530 ==

== ENCOUNTER 2022-01-25 09:06 | Outpatient (REF) | payer MEDICARE, OTHER, SELFPAY ==
--- NOTE | ~2022-01-25 | CT_ITS ---
EXAMINATION: CT CHEST WITHOUT CONTRAST CLINICAL INFORMATION: Pulmonary nodules. COMPARISON: 03/22/2021 and 06/04/2020. TECHNIQUE: Multidetector volumetric CT imaging of the chest was done. Axial MIP volume rendering provided. Sagittal and coronal reformatted images were obtained. This CT examination was performed using dose optimization techniques as appropriate, variously including the following: *Automated exposure control *Adjustment of mA and/or kV according to patient size (this includes techniques or standardized protocols for targeted exams where dose is matched to indication/reason for exam; i.e. extremities or head) *Use of iterative reconstruction technique DLP: 158 mGy-cm FINDINGS: LUNGS: Central airways are patent. There is bilateral bronchial wall thickening seen without evidence of bronchiectasis. There are regions of linear and discoid scarring noted within the right middle lobe and lingula as well as about the medial aspect of the right lower lobe. No new confluent (identified). There are mild changes of centrilobular emphysema seen within the upper lobes bilaterally. There are some sub-4 mm scattered densities present with no suspicious-appearing nodule. There is a calcified granuloma seen within the left lower lobe adjacent to left hemidiaphragm. There is a large calcified granuloma seen adjacent to the medial aspect of the right hemidiaphragm. MEDIASTINUM: Visualized thyroid gland unremarkable. Heart normal size. Coronary artery calcifications seen. There is dense calcification of the mitral annulus. No pericardial effusion appreciated. No thoracic aortic aneurysm. Nonocclusive aortic arch calcification present. There is some fluid seen within the pericardial recess with no mediastinal or hilar lymphadenopathy appreciated. PLEURA: There is no pleural effusion. No pleural mass or thickening. AXILLA: No lymphadenopathy. UPPER ABDOMEN: There is a 3 mm cortical calcification seen within the upper pole of the right kidney. There is a small calcification adjacent to the anterior medial aspect of the spleen. OSSEOUS STRUCTURES: No suspicious destructive bony lesions are identified. There is scoliosis at the cervicothoracic junction convex left and mid thoracic spine convex right. There is multilevel degenerative disc disease present. CT/CT chest wo IV con IMPRESSION: Regions of stable scarring bilaterally. Mild changes of centrilobular emphysema within the upper lobes bilaterally. Old granulomatous disease. Coronary artery and mitral annular calcifications. Fleischner guidelines were followed.
== END 2022-01-25 09:07 | disposition home or self-care (01) ==
LOC: HO.CT 09:06
PROVIDERS: PCP Internal Medicine; Visit Provider Hospitalist
DX: R91.8 Other nonspecific abnormal finding of lung field (principal)
CPT/HCPCS: 71250

== ENCOUNTER 2022-03-18 10:30 | Outpatient (REF) | payer MEDICARE, OTHER, SELFPAY ==
[2022-03-18 11:29] LABS: TSH reflex Free T4 0.71 uIU/mL (0.32-4.0)
== END 2022-03-18 10:31 | disposition home or self-care (01) ==
LOC: HO.LNP 10:30
PROVIDERS: Visit Provider Internal Medicine
DX: E03.9 Hypothyroidism, unspecified (principal)
CPT/HCPCS: 84443

== ENCOUNTER → 2022-04-14 10:51 | Outpatient (BNVA) | payer MEDICARE, OTHER, SELFPAY | PROVIDERS: PCP Internal Medicine; Visit Provider Hospitalist | DX: J45.40 Moderate persistent asthma, uncomplicated (principal); J30.9 Allergic rhinitis, unspecified; R91.8 Other nonspecific abnormal finding of lung field | CPT/HCPCS: 99212 ==

== ENCOUNTER 2022-07-04 15:54 | Emergency (ER) | payer MEDICARE, OTHER, SELFPAY ==
--- NOTE | ~2022-07-04 | CT_ITS ---
EXAMINATION: CT HEAD WITHOUT CONTRAST CT FACIAL BONES WITHOUT CONTRAST CT CERVICAL SPINE WITHOUT CONTRAST CLINICAL INFORMATION: Fall. Head strike. COMPARISON: CT head and cervical spine from 06/04/2020. TECHNIQUE: Imaging was performed from the skull base to vertex without intravenous administration of contrast. In addition, helical noncontrast CT imaging was acquired through the cervical spine and facial bones and source images were reviewed along with axial reconstructions and sagittal and coronal MPRs. This CT examination was performed using dose optimization techniques as appropriate, variously including the following: *Automated exposure control. *Adjustment of mA and/or kV according to patient size (this includes techniques or standardized protocols for targeted exams where dose is matched to indication/reason for exam; i.e. extremities or head). *Use of iterative reconstruction technique. DLP: 1165 mGy-cm FINDINGS: Head: There is no evidence of acute intracranial hemorrhage or edematous territorial infarction. Garrett-white matter differentiation is preserved. A few foci of hypoattenuation in the periventricular and deep white matter are consistent with mild to moderate microangiopathy. Proportional prominence of the ventricles and sulcal spaces without evidence of obstructive hydrocephalus. No abnormal mass effect or midline shift. No extra-axial fluid collections. Calcific atherosclerotic disease of the intracranial internal carotid arteries. No hyperdense vessel sign. Mild subgaleal hematoma along the right aspect of the frontal bone, measuring up to 0.2 cm in depth. No associated osseous abnormalities.. Maxillofacial Bones: No evidence of maxillofacial bone fractures. The zygomatic arches remain intact. No nasal bone fracture. Mild rightward nasal septal deviation. No evidence of mandibular or maxillary fracture. The mandibular condyles remain well-seated in their respective temporal articular grooves. Normal appearance of the intraconal and extraconal fat. No evidence of traumatic injury to the extraocular musculature or globes. Changes of resection of the right submandibular gland. Multiple sialoliths associated with the left submandibular gland. Moderate mucosal thickening of the paranasal sinuses. Nonspecific trace layering fluid within the left maxillary sinus. The mastoid air cells and middle ear cavities are clear. Cervical Spine: The atlantooccipital and atlantoaxial articulations remain well aligned. Mild reversal the normal cervical lordosis. Minimal degenerative anterolisthesis of C3 on C4. Mild degenerative retrolisthesis of C5 on C6. Otherwise, there is anatomic alignment of the vertebral bodies and posterior elements. There is ankylosis of the left-sided C2-C4 facets. No evidence of acute fracture or subluxation. The vertebral body heights are maintained. Advanced degenerative disc disease from C3-C6. Moderate degenerative disc disease at all additional levels. Facet and uncovertebral joint arthropathy leads to osseous encroachment on the neural foramina from C2-C6. There is no prevertebral soft tissue swelling. The thyroid gland and remaining cervical soft tissues are normal in appearance. The lung apices demonstrate no abnormalities. CT/CT cervical spine wo IV con IMPRESSION: 1. No evidence of acute intracranial hemorrhage or edematous territorial infarction. Mild to moderate underlying microangiopathy and generalized cerebral volume loss. 2. No evidence of acute fracture or traumatic subluxation of the cervical spine. 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 3. No evidence of acute fracture of the maxillofacial bones. 4. Small right frontal scalp hematoma. No associated osseous abnormalities. 5. Moderate sinonasal mucosal disease.
--- NOTE | 2022-07-04 17:00 | ED.FALL ---
HPI - Fall General Chief Complaint: Fall Stated Complaint: fell/ injury to face Time Seen by Provider: 07/04/22 19:22 Source: patient Mode of arrival: ambulatory Limitations: no limitations History of Present Illness HPI Narrative: 77 yo female presents to the ER for evaluation after she tripped fell walking up the cement stairs at the [employer] store striking her head/face on the ground. no LOC. not on anticoagulation. was nauseated afterward, no vomiting. Multiple superficial abrasions on the nose, forehead, face. Right eye lower lid with blood clot, unsure if injury to lid or not. No vision changes. She was wearing her glasses at the time which caused injuries to her right upper cheek, right eye, and bridge of her nose. No active bleeding on arrival. MD complaint: fall Onset (ago): hour(s) (1) Fall from: standing Fall witnessed: yes, by bystander Place fall occurred: street Loss of consciousness: none Prolonged down time: no Symptoms prior to fall: none Context: tripped/slipped Location of injury: head and face Severity: mild Severity scale (1-10): 4 Quality: aching Associated symptoms (after fall): headache Related Data Home Medications Medication Instructions Recorded Confirmed albuterol sulfate 90 mcg/actuation 1 puff PO Q4H PRN 11/27/20 11/27/20 aerosol inhaler atorvastatin 20 mg tablet 20 mg PO DAILY 11/27/20 11/27/20 fluticasone 250 mcg-salmeterol 50 1 ea inhalation BID 11/27/20 11/27/20 mcg/dose blistr powdr for inhalation levothyroxine 125 mcg tablet 125 mcg PO DAILY 11/27/20 11/27/20 paroxetine HCl 20 mg tablet 20 mg PO DAILY 11/27/20 11/27/20 trazodone 50 mg tablet 50 mg PO BEDTIME 11/27/20 11/27/20 celecoxib 200 mg capsule 200 mg PO DAILY 04/14/22 Previous Rx's Medication Instructions Recorded montelukast 10 mg tablet 10 mg PO DAILY 30 days #30 tabs 03/23/22 fluticasone 232mcg-salmeterol 1 inh inhalation Q12H 30 days #1 ea 04/14/22 14mcg/actuation breath act,powder sensor (Air[employer]ug[employer] Digihaler) Allergies Allergy/AdvReac Type Severity Reaction Status Date / Time azithromycin [From ZITHROMAX] Allergy Severe RASH Verified 07/04/22 17:01 epinephrine [EPINEPHRINE] Allergy Severe RAPID Verified 07/04/22 17:01 HEART RATE Review of Systems Review of Systems: Yes all other systems are reviewed and are negative [facility] Past Medical History Medical History (Updated 07/04/22 @ 19:24 by KEVIN Hart) Asthma Asthma Bronchitis Chronic allergic rhinitis IBS (irritable bowel syndrome) Pulmonary nodules Surgical History (Updated 06/04/20 @ 19:20 by Radha Erickson) H/O knee surgery Social History Social History (Updated 11/27/20 @ 09:31 by ASHLEE Lira) Patient Tobacco Use Status: Former Tobacco user Tobacco use type: Cigarette Years Smoked: 10 years Physical Exam Vital Signs: Vital Signs: Last Vital Signs Temp 98.0 F 07/04/22 17:01 Pulse 72 07/04/22 17:01 Resp 18 07/04/22 17:01 BP 180/81 H 07/04/22 17:01 Pulse Ox 97 07/04/22 17:01 O2 Del Method 07/04/22 17:01 BMI result Body Mass Index 24.5 Appearance: Alert. Oriented X3. No acute distress. HEENT: normocepalic, superficial abrasions to the right upper forehead, right maxillary area. 0.5m superficial linear abrasion to the bridge of the nose, no epistaxis. right lower eye lid with scab, no active bleeding. PERRLA. EOMI Neck: normal inspection, normal ROM. no midline tenderness CVS: Normal heart rate and rhythm. Pulses normal. Respiratory: No respiratory distress. Skin: Skin warm and dry. Normal skin color. Normal skin turgor. No rashes. Extremities: normal inspection x4, steady gait. no abrasions to the hands or knees Neuro: Oriented X 3. No motor deficit. No sensory deficit. Steady gait Course Course Course Narrative: RME - 77 yo female presents to the ER for evaluation after she tripped fell walking up the cement stairs at the [employer] store striking her head/face on the ground. no LOC. not on anticoagulation. was nauseated afterward. Multiple superficial abrasions on the nose, forehead, face. Right eye lower lid with blood clot, unsure if injury to lid or not. No vision changes. Will get CT scans head/face/c-spine and have her wounds better assesses once in treatment room. Reevaluation(s) Reevaluation #1: CT scans resulted. Patient would like to go home and not wait to go to treatment for further evaluation. We discussed the results of her CTs. Scab on the right lower lid is gone with what appears to be superficial abrasions to the lower lid, no active bleeding. she will follow up with her PCP and eye doc, due for exam now. stable for d/c home Medical Decision Making Differential Diagnosis Differential Diagnoses: The differential diagnosis associated with the presentation includes abrasion, contusion, lid laceration, ICH/SAH/epidural hematoma, traumatic cervical spinal injury, broken nose, other facial bone fracture Radiology Impression Discussion of test interpretation with radiology: I have reviewed the radiologist's reading. Radiologist Impression: CT/CT head/brain wo IV con IMPRESSION: 1.? No evidence of acute intracranial hemorrhage or edematous territorial infarction. Mild to moderate underlying microangiopathy and generalized cerebral volume loss. 2.? No evidence of acute fracture or traumatic subluxation of the cervical spine. 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 3.? No evidence of acute fracture of the maxillofacial bones. 4.? Small right frontal scalp hematoma. No associated osseous abnormalities. 5.? Moderate sinonasal mucosal disease. External Record Review External record reviewed: Outpatient record, Prior outpatient labs and Prior outpatient radiology Prescription Management I considered prescription management with: Pain Medication Critical Care Time Critical Care Time Critical Care Time: No Discharge Plan Discharge Clinical Impression: Traumatic hematoma of forehead, Abrasion of face Patient Disposition: Home, Self-Care Instructions: Abrasion (ED), Facial Contusion (ED) Additional Instructions: CT scans did not show any broken bones Follow up with your PCP Prescriptions: No Action montelukast 10 mg tablet 10 mg PO DAILY 30 Days Qty: 30 11RF levothyroxine 125 mcg tablet 125 mcg PO DAILY trazodone 50 mg tablet 50 mg PO BEDTIME albuterol sulfate 90 mcg/actuation HFA aerosol inhaler 1 puff PO Q4H PRN paroxetine HCl 20 mg tablet 20 mg PO DAILY atorvastatin 20 mg tablet 20 mg PO DAILY fluticasone propion-salmeterol 250-50 mcg/dose blister with device 1 ea inhalation BID celecoxib 200 mg capsule 200 mg PO DAILY AirDuo Digihaler 232-14 mcg/actuation aero powdr breath act w/sensor 1 inh inhalation Q12H 30 Days Qty: 1 11RF
[2022-07-04 17:01] VITALS: BP 180/81; PULSE 72; RESP 18; TEMP 36.7; O2SAT 97; BMI 24.5
== END 2022-07-04 20:22 | disposition home or self-care (01) ==
LOC: HO.ED 20:19
PROVIDERS: Emergency Provider Emergency Medicine; PCP Internal Medicine
DX: S00.81XA Abrasion of other part of head, initial encounter (principal); S00.83XA Contusion of other part of head, initial encounter; R51.9 Headache, unspecified; M54.2 Cervicalgia; W10.9XXA Fall (on) (from) unspecified stairs and steps, initial encounter; Y93.9 Activity, unspecified; Y92.9 Unspecified place or not applicable; Y99.9 Unspecified external cause status; Z79.899 Other long term (current) drug therapy
CPT/HCPCS: 70450; 70486; 72125; 99282; 99284

== ENCOUNTER 2022-08-05 11:05 | Outpatient (REF) | payer MEDICARE, OTHER, SELFPAY ==
[2022-08-05 11:09] LABS: MANUAL DIFF FLAG NO
[2022-08-05 11:51] LABS: Basophils Percent Auto 0.7 % (0-2); Eosinophils Absolute Auto 0.6 X10*3/uL (0.0-0.4); Eosinophils Percent Auto 11.5 % (0-4); Hematocrit 36.9 % (37.0-47.0); Hemoglobin 12.3 g/dl (12.0-16.0); Imm Gran Abs Auto 0.01 X10*3/uL (0.00-0.03); Imm Gran Pct Auto 0.2 % (0.0-0.4); Lymphocytes Absolute Auto 1.3 X10*3/uL (1.2-4.9); Mean Corpuscular HGB Conc 33.3 g/dl (31.0-35.0); Mean Corpuscular Hemoglobin 31.4 pg (27.0-33.0); Mean Corpuscular Volume 94.1 fL (80.0-98.0); Mean Platelet Volume 9.7 fL (9.4-12.3); Monocytes Absolute Auto 0.5 X10*3/uL (0.1-1.2); Monocytes Percent Auto 9.7 % (2-11); Neutrophils Absolute Auto 2.8 x10*3/uL (2.0-8.3); Neutrophils Percent Auto 52.9 % (45-73); Platelet Count 174 X10*3/uL (160-400); Red Blood Count 3.92 X10*6/uL (4.20-5.50); Red Cell Distribution Width 12.4 % (11.0-16.0); White Blood Count 5.4 X10*3/uL (4.8-10.8)
[2022-08-05 12:01] LABS: Appearance Urine Clear; Color Urine Yellow; Glucose Urine UA Negative (Negative); Leukocyte Esterase Urine Trace (Negative); Nitrite Urine Negative (Negative); PH 6.5 (5.0-9.0); Specific Gravity - Urine 1.015 (1.005-1.025); UMIC TRIGGER UACC YES; Urine Blood Small (1+) (Negative); Urine Ketones Negative (Negative); Urine Protein Negative (Neg-Trace)
[2022-08-05 12:06] LABS: Bacteria Urine None Seen (None Seen); Hyaline Casts Urine 0-2 /LPF (0-2); Squamous Epithelial Cell Urine 0-2 /HPF (0-2); WBC Urine 0-5 /HPF (0-5)
[2022-08-05 12:09] LABS: Estimated Average Glucose 114 mg/dL; Hemoglobin A1c % 5.6 %
[2022-08-05 12:44] LABS: Creatinine Urine 87.45 mg/dL; Microalbum/Creatinine Ratio Ur 13.7 ug/mg cr; TSH reflex Free T4 0.06 uIU/mL (0.32-4.0)
[2022-08-05 13:21] LABS: Alanine Aminotransferase 22 U/L (0-31); Albumin Level 3.9 g/dL (3.5-5.0); Alkaline Phosphatase 86 U/L (39-117); Anion Gap 12 (12-20); Aspartate Amino Transferase 28 U/L (5-31); Bilirubin Total 0.8 mg/dL (0.0-1.0); Blood Urea Nitrogen 16 mg/dL (9-16); Calcium 8.7 mg/dL (8.4-10.2); Carbon Dioxide 27 mmol/L (22-29); Chloride 110 mmol/L (96-108); Estimated Glomerular Filt Rate > 60; Glucose Fasting 101 mg/dL (60-99); Potassium 4.4 mmol/L (3.3-5.1); Sodium 145 mmol/L (135-145); Total Protein 6.6 g/dL (6.5-8.0)
[2022-08-05 13:36] LABS: Free T4 (Free Thyroxine) 1.33 ng/dL (0.71-1.85)
== END 2022-08-05 11:06 | disposition home or self-care (01) ==
LOC: HO.LNP 11:05
PROVIDERS: Visit Provider Internal Medicine
DX: R73.03 Prediabetes (principal); E03.9 Hypothyroidism, unspecified; E78.00 Pure hypercholesterolemia, unspecified; I10 Essential (primary) hypertension
CPT/HCPCS: 80053; 81001; 82043; 83036; 84439; 84443; 85025

== ENCOUNTER 2022-09-12 10:56 | Outpatient (REF) | payer MEDICARE, OTHER, SELFPAY ==
--- NOTE | ~2022-09-12 | MM_ITS ---
EXAMINATION: BONE DENSITOMETRY CLINICAL INDICATION: Other specified menopausal and perimenopausal disorders. COMPARISON: Previous BD dated 07/01/2020 and baseline BD dated 02/11/2016. TECHNIQUE: Using a [employer] DXA System (software version: 13.1) manufactured by [employer], dual-energy x-ray absorptiometry was performed of the lumbar spine and left hip. The images are of good technical quality. Summary results are attached. FINDINGS: AP SPINE L1-L4: Current: BMD 1.246 g/cm2, Z-score 2.2, T-score 0.6, normal, 0.6% increase from previous, 4.7% decrease from baseline (<5% change is not significant). Prior: BMD 1.239 g/cm2. Baseline: BMD 1.308 g/cm2. LEFT FEMUR, NECK: Current: BMD 0.827 g/cm2, Z-score 0.4, T-score -1.5, osteopenia. Prior: BMD 0.836 g/cm2. Baseline: BMD 0.918 g/cm2. LEFT FEMUR, TOTAL: Current: BMD 0.881 g/cm2, Z-score 0.7, T-score -1.0, normal, 8.9% decrease from previous, 9.9% decrease from baseline (<5% change is not significant). Prior: BMD 0.967 g/cm2. Baseline: BMD 0.978 g/cm2. IDENTIFIED RISK FACTORS: History of adult fracture. Low calcium intake. Menopause. HISTORY OF FRACTURE: Forearm. MEDICATIONS: Multivitamin. MM/XR DEXA axial skeleton IMPRESSION: 1. DIAGNOSIS: Osteopenia based on the lowest T-score value of -1.5 in the femoral neck applying World Health Organization criteria. 2. 10-YEAR FRACTURE RISK PREDICTION, FRAX: Major osteoporotic fracture (clinical spine, forearm, hip or shoulder) 17.0%. Hip fracture 3.3%. 3. Treatment Recommendations: NOF guidelines recommend consideration for treatment in postmenopausal women and men age 50 and older presenting with the following: -A hip or vertebral (clinical or morphometric) fracture. -T-score less than or equal to -2.5 at the femoral neck or spine after appropriate evaluation to exclude secondary causes. -Low bone mass at the hip or spine and a 10-year fracture probability by FRAX of greater than or equal to 3% for hip fracture or greater than or equal to 20% for major osteoporotic fracture based on the [place] adapted WHO algorithm. 4. Other Recommendations: All treatment decisions require clinical judgment and consideration of individual patient factors, including patient preferences, comorbidities, previous drug use, risk factors not captured in the FRAX model (e.g. frailty, falls, vitamin D deficiency, increased bone turnover, interval significant decline in bone density) and possible under or overestimation of fracture risk by FRAX. Additional medical evaluation for secondary cause of low bone mineral density may be appropriate. FUTURE SCAN RECOMMENDATION: People with diagnosed cases of osteoporosis or at high risk for fracture should have regular bone mineral density tests. For patients eligible for Medicare, routine testing is allowed once every 2 years. The testing frequency can be increased to one year for patients who have rapidly progressing disease, those who are receiving or discontinuing medical therapy to restore bone mass, or have additional risk factors.
== END 2022-09-12 10:57 | disposition home or self-care (01) ==
LOC: HO.MAMMO 10:56
PROVIDERS: PCP Internal Medicine; Visit Provider Internal Medicine
DX: Z13.820 Encounter for screening for osteoporosis (principal); Z78.0 Asymptomatic menopausal state
CPT/HCPCS: 77080

== ENCOUNTER 2022-11-11 11:16 | Outpatient (REF) | payer MEDICARE, OTHER, SELFPAY ==
[2022-11-11 12:44] LABS: TSH reflex Free T4 0.08 uIU/mL (0.32-4.0)
[2022-11-11 13:29] LABS: Free T4 (Free Thyroxine) 1.17 ng/dL (0.71-1.85)
== END 2022-11-11 11:17 | disposition home or self-care (01) ==
LOC: HO.LNP 11:16
PROVIDERS: Visit Provider Internal Medicine
DX: E03.9 Hypothyroidism, unspecified (principal)
CPT/HCPCS: 84439; 84443

== ENCOUNTER 2022-11-28 09:22 | Outpatient (AMB) | payer MEDICARE, OTHER, SELFPAY ==
[2022-11-28 09:23] VITALS: BP 120/68; PULSE 68; O2SAT 94; BMI 24.2
--- NOTE | 2022-11-28 09:23 | A.OFFVIS_ITS ---
Intake Vital Signs 11/28/22 09:23 Height 5 ft 6 in Weight 150 lb BMI 24.2 BP 120/68 Blood Pressure Location Lt brachial Position Standing Pulse 68 Pulse Source Pulse Oximeter Pulse Oximetry (%) 94 Oxygen Delivery Method Room Air Intake Visit Reasons: pulm nodules Intake Note: pt is here for follow up and states she is okay, she is having headaches, and sometimes she gets hoarse, not sure why Allergies azithromycin [From ZITHROMAX] Allergy (Severe, Verified 11/28/22 09:33) RASH epinephrine [EPINEPHRINE] Allergy (Severe, Verified 11/28/22 09:33) RAPID HEART RATE HPI HPI Comments History of Present Illness Details The patient is a 77-year-old woman with a history of asthma who apparently was in the usual state health until she fell at home hitting her head and also her torso back in may 2020. She was brought to the emergency department which she had an evaluation. The patient has significant discomfort and therefore she did undergo imaging studies to assess the level of trauma. She did undergo a CT scan of the chest that demonstrated 5-6 mm ground-glass nodular density. The patient does have respiratory symptoms including cough and also developed chest tightness at times. She does have inhalers which she uses. Patient denies any night sweats or any weight loss. I personally reviewed the CT scan with her in a measured the right upper lobe nodular density to be 6 mm in size. Therefore, the patient needs to have a repeat CT scan to address the abnormal finding. 04/14/2022 the patient is here for a pulmonary follow-up visit. Overall she is doing about the same. Complains of a productive cough [id number] in severity. Does not really bother her too much. She has not been using her Advair at all. He is also very expensive for her. The last prescription she got from can of that to minimize on the cost. She is concerned about some findings on her CT scan. The patient has stable pulmonary nodules which is reassuring. It is noted that she had some emphysema although very very mild. I did try to reassure her. She did smoke many years ago and also was exposed to significant amount of secondhand smoke. The patient also has some calcifications to her coronary arteries and also his aorta. She does take cholesterol medication. in addition to this she may have a small hiatal hernia. And she does take medication for. We talked about the reflux diet. She rarely has symptoms. The more significant findings was the degree of bronchitis bilaterally primarily at the bases. Blood work demonstrates significant eosinophilia as well. Explained to her that she has chronic bronchitis primarily eosinophilic and the use of inhaled steroids will help decrease the amount of mucus production. In addition to that she is sleeping elevated which is also helping with reflux disease. Will try to maximize her respiratory therapy. If she continues to be symptomatic we can always consider biologic therapy such as an interleukin 5 inhibitor to minimize eosinophilic inflammation. 11/28/2022 the patient is here for a pulmonary follow-up visit. Overall the patient is doing well. She is having difficulties getting her inhalers. She did get a prescription for Advair from [facility]. We did talk about the good Rx card. She can consider AirDuo in the future. She will wait for her Advair right now. She also can use the good Rx card to get a rescue inhaler for reasonable borges. Denies any significant shortness of breath. She does have episodes of cough and chest tightness. The patient also has a postnasal drip. Ultimately resulting in some hoarseness intermittently. In addition to that we did look at her CT scan of the chest that she had back in the fall 2021 demonstrating small pulmonary nodules. Will going to repeat her CT next CT scan April 2023 I year plus after her last CT scan to make sure stability of the pulmonary nodules. If the CT scan is stable she does not need any further serial CT scans. [facility] Medical History (Updated 07/05/22 @ 00:02 by Abigail Boles) Asthma Asthma Bronchitis Chronic allergic rhinitis IBS (irritable bowel syndrome) Pulmonary nodules Surgical History (Updated 06/04/20 @ 19:20 by Radha Erickson) H/O knee surgery Social History (Updated 11/28/22 @ 09:35 by Elyse Leigh [facility]) Patient Tobacco Use Status: Former Tobacco user Tobacco use type: Cigarette Years Smoked: 10 years Review of Systems Const Denies night sweats ENT Denies change in voice, Denies lip swelling, Denies mouth pain, Reports nasal congestion, Reports nasal discharge and Denies tongue swelling Card Denies chest pain Resp Denies chest congestion and Reports cough GI Denies abdominal pain Musc Denies no additional complaints Neuro Denies Neuro-related abnormal movements Psych Denies no additional complaints Ollie/Lymph Denies easy bleeding and Denies lymphadenopathy Aller/Immun Denies lip swelling and Denies tongue swelling Physical Exam Vital Signs: Last Vital Signs Pulse 68 11/28/22 09:23 BP 120/68 11/28/22 09:23 Pulse Ox 94 11/28/22 09:23 Oxygen Delivery Method Room Air 11/28/22 09:23 BMI result Body Mass Index 24.2 Const General: alert Neck Neck: Yes normal visual inspection, Yes full ROM and Yes no lymphadenopathy Chest Chest palpation & inspection: normal inspection of the chest Resp Auscultation: no rhonchi, no wheezes and diminished lung sounds Cardio Rate: regular rate Rhythm: regular rhythm Heart sounds: S1 normal heart sound present and S2 normal heart sound present GI Palpation (GI): Soft to palpation and nontender Auscultation: normal bowel sounds Skin General skin exam: rashes and/or lesions noted Assessment & Plan Assessment & Plan (1) Asthma: Code(s): J45.909 - Unspecified asthma, uncomplicated Qualifiers: Asthma complication type: uncomplicated Asthma persistence: persistent Asthma severity: moderate Qualified Code(s): J45.40 - Moderate persistent asthma, uncomplicated (2) Chronic allergic rhinitis: Code(s): J30.9 - Allergic rhinitis, unspecified (3) Pulmonary nodules: Code(s): R91.8 - Other nonspecific abnormal finding of lung field Plan Repeat CT scan of the chest 04/2023 continue Advair consider AirDuo. Will looking to Good Rx short-acting beta agonist as needed continue singular Reflux diet sleep with the head of bed elevated F/U 6-8 months Coding Level of Care Code Est Pt Level 4 (42820) Diagnoses Asthma J45.40 Asthma complication type: uncomplicated Asthma persistence: persistent Asthma severity: moderate Chronic allergic rhinitis J30.9 Pulmonary nodules R91.8 Time Spent (min) 18
== END 2022-11-28 09:58 | disposition home or self-care (01) ==
PROVIDERS: PCP Internal Medicine; Visit Provider Hospitalist
DX: J45.40 Moderate persistent asthma, uncomplicated (principal); J30.9 Allergic rhinitis, unspecified; R91.8 Other nonspecific abnormal finding of lung field
CPT/HCPCS: 99214

== ENCOUNTER → 2022-11-28 09:22 | Outpatient (BNVA) | payer MEDICARE, OTHER, SELFPAY | PROVIDERS: PCP Internal Medicine; Visit Provider Hospitalist | DX: J45.40 Moderate persistent asthma, uncomplicated (principal); J30.9 Allergic rhinitis, unspecified; R91.8 Other nonspecific abnormal finding of lung field; Z79.899 Other long term (current) drug therapy | CPT/HCPCS: 99212 ==

== ENCOUNTER 2022-11-28 15:35 | Outpatient (REF) | payer MEDICARE, OTHER, SELFPAY | END 2022-11-28 15:36 | disposition home or self-care (01) | LOC: HO.LNP 15:35 | PROVIDERS: Visit Provider Internal Medicine | DX: M10.00 Idiopathic gout, unspecified site (principal) | CPT/HCPCS: 84550 ==

== ENCOUNTER 2022-12-05 16:05 | Outpatient (REF) | payer MEDICARE, OTHER, SELFPAY ==
--- NOTE | ~2022-12-05 | XR_ITS ---
EXAMINATION: XR FINGER, RIGHT CLINICAL INFORMATION: Acute idiopathic gout, pain to right 4th digit, no injury. COMPARISON: None available. TECHNIQUE: 3 views of the right 4th digit. FINDINGS: The bones are diffusely demineralized. Moderate degenerative changes 1st carpometacarpal joint with joint space narrowing and hypertrophic change. Advanced degenerative changes 4th PIP joint with hypertrophic change and joint space narrowing. No displaced fracture of the 4th digit. Moderate degenerative changes with hypertrophic change with notable examples in the 1st IP joint as well as in the 2nd, 3rd and 5th DIP joints. 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 No displaced fracture of the 4th digit. RECOMMENDATION: Recommend follow-up imaging in 10-14 days if fracture is suspected.
== END 2022-12-05 16:06 | disposition home or self-care (01) ==
LOC: HO.XRAY 16:05
PROVIDERS: PCP Internal Medicine; Visit Provider Internal Medicine
DX: M10.00 Idiopathic gout, unspecified site (principal)
CPT/HCPCS: 73140

== ENCOUNTER 2022-12-07 12:00 | Outpatient (RCR) | payer MEDICARE, OTHER, SELFPAY ==
--- NOTE | 2022-09-26 15:40 | MHC.PT.EP ---
[facility] [place] Office [place] Office [place] Office [address] Barbara Chaudhry [address] [phone] F: [phone] F: [phone] F: [phone] F: [phone] Physical Therapy Plan of Care Date of Evaluation: Date of Surgery: N/A Diagnosis: Unsteady gait Assessment: Pt is a pleasant and motivated 77yo F who presents to PT with unsteady gait. She presents to PT with current impairments in decreased LE strength, decreased balance/proprioception, and impaired gait. She is limited functionally by prolonged standing, walking, bending, and reaching outside of DUNIA. She is an excellent candidate for skilled PT in order to address current impairments to facilitate return to PLOF and decrease risk of falls. She is recommended to be seen 2x/week for 4 weeks and will be reassessed at that time. Frequency and Duration: The patient will be seen 2x/week for 4 weeks Short Term Goals: Pt will be I with HEP to promote self management of symptoms Pt will improve B quad strength to 4+/5 Assisted Goals: Pt will demonstrate improvements in LE strength and endurance by increase in 30 second sit to stand to 11 reps Pt will demonstrate ability to ambulate on multidirectional path on even and uneven surfaces > 20 min without LOB Pt will demonstrate improvements in balance as evidenced by statistically significant improvement in The Activity-specific Balance Confidence (ABC) Scale Treatment Plan: Modalities to reduce pain, spasms and effusion. Manual therapy to restore motion and function. Therapeutic exercise to improve strength and flexibility. Neuromuscular re-education for posture and balance. Therapeutic activities to return to functional activities of daily living. Electronically signed by: Tori Estrada, PT, DPT Please sign and return to therapist. Thank you for your referral.
--- NOTE | 2022-12-07 13:34 | MHC.PT.DC ---
[facility] [place] Office [place] Office [place] Office [address] [phone] F: [phone] F: [phone] F: [phone] F: [phone] Physical Therapy Discharge Report Diagnosis: Unsteady gait Date of Surgery: N/A Date of Evaluation: 09/26/22 Date of Discharge: 12/07/22 Treatments to Date: 9 Cancellations to Date: 2 No Shows to Date: Discharge Status: Achieved Goals Improved Function Independent with HEP Discharge Summary: Pt has made excellent progress since SOC. She has improved LE strength, balance, and functional mobility. She demonstrates improved safety and steadiness throughout gait. She also has had an overall decrease in pain. She is I with HEP. She is being D/C from skilled PT at this time. Pt reports no further questions or concerns for PT at this time. Electronically signed by: Tori sEtrada, PT, DPT Please sign and return to therapist. Thank you for your referral.
== END 2022-12-07 13:33 | disposition home or self-care (01) ==
LOC: HO.PT 12:00
PROVIDERS: PCP Internal Medicine; Visit Provider Internal Medicine
DX: R26.81 Unsteadiness on feet (principal)
CPT/HCPCS: 97110; 97112; 97162

== ENCOUNTER 2023-02-03 11:34 | Outpatient (REF) | payer MEDICARE, OTHER, SELFPAY ==
[2023-02-03 11:52] LABS: Estimated Average Glucose 111 mg/dL; Hemoglobin A1c % 5.5 % (<6.0)
[2023-02-03 12:03] LABS: Cholesterol 173 mg/dL (<200); HDL Cholesterol 57 mg/dL (>40); LDL Cholesterol Calculated 106 mg/dL (<100); Triglycerides 51 mg/dL (<150)
[2023-02-03 12:04] LABS: Alanine Aminotransferase 26 U/L (0-31); Albumin Level 3.9 g/dL (3.5-5.0); Alkaline Phosphatase 110 U/L (39-117); Aspartate Amino Transferase 26 U/L (5-31); Bilirubin Direct 0.2 mg/dL (0.0-0.5); Bilirubin Total 0.5 mg/dL (0.0-1.0); Glucose Fasting 86 mg/dL (60-99); Total Protein 7.4 g/dL (6.5-8.0)
[2023-02-03 13:57] LABS: Reflex LDLD? No
== END 2023-02-03 11:35 | disposition home or self-care (01) ==
LOC: HO.LNP 11:34
PROVIDERS: Visit Provider Internal Medicine
DX: R73.09 Other abnormal glucose (principal); E78.00 Pure hypercholesterolemia, unspecified
CPT/HCPCS: 80061; 80076; 82947; 83036

== ENCOUNTER 2023-02-10 15:53 | Outpatient (REF) | payer MEDICARE, OTHER, SELFPAY ==
[2023-02-10 17:29] LABS: TSH reflex Free T4 0.46 uIU/mL (0.32-4.0)
== END 2023-02-10 15:54 | disposition home or self-care (01) ==
LOC: HO.LNP 15:53
PROVIDERS: Visit Provider Internal Medicine
DX: E03.9 Hypothyroidism, unspecified (principal)
CPT/HCPCS: 84443

== ENCOUNTER 2023-05-01 12:52 | Outpatient (REF) | payer MEDICARE, OTHER, SELFPAY ==
--- NOTE | ~2023-05-01 | CT_ITS ---
EXAMINATION: CT CHEST WITHOUT CONTRAST CLINICAL INFORMATION: Pulmonary nodule COMPARISON: Chest CT January 25, 2022 TECHNIQUE: Multidetector volumetric CT imaging of the chest was done. Axial MIP volume rendering provided. Sagittal and coronal reformatted images were obtained. This CT examination was performed using dose optimization techniques as appropriate, variously including the following: *Automated exposure control *Adjustment of mA and/or kV according to patient size (this includes techniques or standardized protocols for targeted exams where dose is matched to indication/reason for exam; i.e. extremities or head) *Use of iterative reconstruction technique DLP: 145 mGy-cm FINDINGS: Central airways are patent. Lungs are well aerated. Mild emphysematous changes are noted. There is similar suspected scarring versus atelectasis within the right middle lobe and medial aspect of the right lower lobe with less prominent atelectasis versus scarring within the lingula. There is no lobar consolidation present. No pleural effusion or pneumothorax. A few 1 to 3 mm pulmonary nodule/nodular densities are again noted which appear similar. There is a new 4 mm pulmonary nodule versus nodular density within the left upper lobe (image 154/595, series 5). The heart is normal in size. Coronary artery calcifications are noted. Prominent mitral annulus calcifications are present. There is no pericardial effusion. Normal caliber thoracic aorta. No gross mediastinal or hilar lymphadenopathy appreciated on today's noncontrast imaging. No pathologically enlarged axillary lymph nodes bilaterally. Visualized portions of the upper abdomen are grossly unremarkable. Moderate degenerative changes of the spine. CT/CT chest wo IV con IMPRESSION: 1. Mild emphysema. 2. A few 1 to 3 mm pulmonary nodule/nodular densities are again noted which appear similar. There is a new 4 mm pulmonary nodule versus nodular density within the left upper lobe. Attention on follow-up imaging recommended. Fleischner guidelines were followed.
== END 2023-05-01 12:53 | disposition home or self-care (01) ==
LOC: HO.CT 12:52
PROVIDERS: PCP Internal Medicine; Visit Provider Hospitalist
DX: R91.8 Other nonspecific abnormal finding of lung field (principal)
CPT/HCPCS: 71250

== ENCOUNTER 2023-07-18 09:33 | Outpatient (AMB) | payer MEDICARE, OTHER, SELFPAY ==
[2023-07-18 09:38] VITALS: BP 126/70; PULSE 72; O2SAT 93; BMI 25.8
--- NOTE | 2023-07-18 09:38 | A.OFFVIS_ITS ---
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 She was brought to the emergency department which she had an evaluation. The patient has significant discomfort and therefore she did undergo imaging studies to assess the level of trauma. She did undergo a CT scan of the chest that demonstrated 5-6 mm ground-glass nodular density. The patient does have respiratory symptoms including cough and also developed chest tightness at times. She does have inhalers which she uses. Patient denies any night sweats or any weight loss. I personally r eviewed the CT scan with her in a measured the right upper lobe nodular density to be 6 mm in size. Therefore, the patient needs to have a repeat CT scan to address the abnormal finding. 04/14/2022 the patient is here for a pulm onary follow-up visit. Overall she is doing about the same. Complains of a productive cough [id number]-[id number] in severity. Does not really bother her too much. She has not been using her Advair at all. He is also very expensive for her. The last prescription she got from can of that to minimize on the cost. She is concerned about some findings on her CT scan. The patient has stable pulmonary nodules which is reassuring. It is noted that she had some emphysema although very very mild. I did try to reassure her. She did smoke many years ago and also was exposed to significant amount of secondhand smoke. The patient also has some calcifications to her coronary arteries and also his aorta. She does take cholesterol medication. in addition to this she may have a small hiatal hernia. And she does take medication for. We talked about the reflux diet. She rarely has symptoms. The more significant findings was the degree of bronchitis bilaterally primarily at the bases. Blood work demonstrates significant eosinophilia as well. Explained to her that she has chronic bronchitis primarily eosinophilic and the use of inhaled steroids will help de crease the amount of mucus production. In addition to that she is sleeping elevated which is also helping with reflux disease. Will try to maximize her respiratory therapy. If she continues to be symptomatic we can always consider biologic therapy such as an interleukin 5 inhibitor to minimize eosinophilic inflammation. 11/28/2022 the patient is here for a pul onlaurel follow-up visit. Overall the patient is doing well. She is having difficulties getting her inhalers. She did get a prescription for Advair from [facility]. We did talk about the good Rx card. She can consider AirDuo in the future. She will wait for her Advair right now. She also can use the good Rx card to get a rescue inhaler for reasonable borges. Denies any significant shortness of breath. She does have episodes of cough and chest tightness. The patient also has a postnasal drip. Ultimately resulting in some hoarseness intermittently. In addition to that we did look at her CT scan of the chest that she had back in the fall 2021 demonstrating small pulmonary nodules. Will going to repeat her CT next CT scan April 2023 I year plus after her last CT scan to make sure stability of the pulmonary nodules. If the CT scan is stable she does not need any further serial CT scans. 07/18/2023 the patient is here for a pulmo nary follow-up visit. The patient overall has been doing well. 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 In regards of the Advair sometimes she is able to get Advair sometimes she is able to get something similar. She also has gotten the medication from [facility] in the past. Issues very expensive for. We did talk about the AirDuo inhaler that she can get with the GoodRx card. Therefore give her a prescription to the pharmacy and she can consider it. In the meantime she did have a CT scan of the chest back in April 2023 which we personally reviewed. She has multiple pulmonary nodules but has a new pulmonary nodule in the left upper lobe. The nodules measuring 4 mm in size. Therefore, she will have a repeat CT scan April 2024. Will follow-up with her after that. [facility] Medical History (Updated 07/05/22 @ 00:02 by Abigail Boles) Pulmonary nodules Chronic allergic rhinitis Asthma IBS (irritable bowel syndrome) Bronchitis Asthma Surgical History (Updated 06/04/20 @ 19:20 by Radha Erickson) H/O knee surgery Social History (Updated 11/28/22 @ 09:35 by Elyse Leigh [facility]) Patient Tobacco Use Status: Former Tobacco user Tobacco use type: Cigarette Years Smoked: 10 years Review of Systems Const Denies night sweats ENT Denies change in voice, Denies lip swelling, Denies mouth pain, Reports nasal co ngestion, Reports nasal discharge and Denies tongue swelling Card Denies chest pain Resp Denies chest congestion and Reports cough GI Denies abdominal pain Musc Denies no additional complaints Neuro Denies Neuro-related abnormal movements Psych Denies no additional complaints Ollie/Lymph Denies easy bleeding and Denies lymphadenopathy Aller/Immun Denies lip swelling and Denies tongue swelling Physical Exam Vital Signs: Last Vital Signs Pulse 72 07/18/23 09:38 BP 126/70 07/18/23 09:38 Pulse Ox 93 07/18/23 09:38 Oxygen Delivery Method Room Air 07/18/23 09:38 BMI result Body Mass Index 25.8 Const General: alert Neck Neck: Yes normal visual inspection, Yes full ROM and Yes no lymphadenopathy Chest Chest palpation & inspection: normal inspection of the chest Resp Auscultation: clear to auscultation bilaterally, no rhonchi and no wheezes Cardio Rate: regular rate Rhythm: regular rhythm Heart sounds: S1 normal heart sound present and S2 normal heart sound present GI Palpation (GI): Soft to palpation and nontender Auscultation: normal bowel sounds Skin General skin exam: rashes and/or lesions noted Results Reviewed Results Reviewed: [address] [address] [address] Scan Report Signed Patient: Sammi Brush MR#: [id number] : 1945 Acct:[id number] Age/Sex: 78 / F ADM Date: 05/01/23 Loc: HO.CT Attending Dr: Joseph Bingham MD Ordering Physician: Joseph Bingham MD Date of Service: 05/01/23 Procedure(s): CT chest wo IV con Accession Number(s): [id number] cc: Geronimo Goodson MD; Joseph Bingham MD~ EXAMINATION: CT CHEST WITHOUT CONTRAST CLINICAL INFORMATION: Pulmonary nodule COMPARISON: Chest CT January 25, 2022 TECHNIQUE: Multidetector volumetric CT imaging of the chest was done. Axial MIP volume rendering provided. Sagittal and coronal reformatted images were obtained. This CT examination was performed using dose optimization techniques as appropriate, variously including the following: *Automated exposure control *Adjustment of mA and/or kV according to patient size (this includes techniques or standardized protocols for targeted exams where dose is matched to indication/reason for exam; i.e. extremities or head) *Use of iterative reconstruction technique DLP: 145 mGy-cm FINDINGS: Central airways are patent. Lungs are well aerated. Mild emphysematous changes are noted. There is similar suspected scarring versus atelectasis within the right middle lobe and medial aspect of the right lower lobe with less prominent atelectasis versus scarring within the lingula. There is no lobar consolidation present. No pleural effusion or pneumothorax. A few 1 to 3 mm pulmonary nodule/nodular densities are again noted which appear similar. There is a new 4 mm pulmonary nodule versus nodular density within the left upper lobe (image [id number]/595, series 5). The heart is normal in size. Coronary artery calcifications are noted. Prominent mitral annulus calcifications are present. There is no pericardial effusion. Normal caliber thoracic aorta. No gross mediastinal or hilar lymphadenopathy appreciated on today's noncontrast imaging. No pathologically enlarged axillary lymph nodes bilaterally. Visualized portions of the upper abdomen are grossly unremarkable. Moderate degenerative changes of the spine. CT/CT chest wo IV con IMPRESSION: 1. Mild emphysema. 2. A few 1 to 3 mm pulmonary nodule/nodular densities are again noted which appear similar. There is a new 4 mm pulmonary nodule versus nodular density within the left upper lobe. Attention on follow-up imaging recommended. Fleischner guidelines were followed. Dictated By: Mauricio Soriano MD Signed By: <Electronically signed by Mauricio Soriano MD in OV> 05/16/23 1815 DD/ 1309 TD/TT: Amplifier Mechanic: PD Assessment & Plan Assessment & Plan (1) Asthma: Code(s): J45.909 - Unspecified asthma, uncomplicated Qualifiers: Asthma complication type: uncomplicated Asthma persistence: persistent Asthma severity: moderate Qualified Code(s): J45.40 - Moderate persistent asthma, uncomplicated (2) Chronic allergic rhinitis: Code(s): J30.9 - Allergic rhinitis, unspecified (3) Pulmonary nodules: Code(s): R91.8 - Other nonspecific abnormal finding of lung field Plan Repeat CT scan of the chest 04/2024 continue Advair or similar short-acting beta agonist as needed continue singular Reflux diet sleep with the head of bed elevated F/U 04/2024 Orders: Orders CT chest wo IV con 04/14/24 R91.8 - Other nonspecific abnormal finding of lung field Medications: New fluticasone propion-salmeterol 232-14 mcg/actuation (AirDuo RespiClick) 1 inh inhalation Q12H 1 ea 11RF 30 days Coding Level of Care Code Est Pt Level 4 (80486) Diagnoses Moderate persistent asthma without complication J45.40 Asthma complication type: uncomplicated Asthma persistence: persistent Asthma severity: moderate Chronic allergic rhinitis J30.9 Pulmonary nodules R91.8 Time Spent (min) 17
== END 2023-07-18 10:03 | disposition home or self-care (01) ==
PROVIDERS: PCP Internal Medicine; Visit Provider Hospitalist
DX: J45.40 Moderate persistent asthma, uncomplicated (principal); J30.9 Allergic rhinitis, unspecified; R91.8 Other nonspecific abnormal finding of lung field
CPT/HCPCS: 99214

== ENCOUNTER → 2023-07-18 09:33 | Outpatient (BNVA) | payer MEDICARE, OTHER, SELFPAY | PROVIDERS: PCP Internal Medicine; Visit Provider Hospitalist | DX: J45.40 Moderate persistent asthma, uncomplicated (principal); J30.9 Allergic rhinitis, unspecified; R91.8 Other nonspecific abnormal finding of lung field | CPT/HCPCS: 99212 ==

== ENCOUNTER 2023-08-07 11:00 | Outpatient (REF) | payer MEDICARE, OTHER, SELFPAY ==
[2023-08-07 11:04] LABS: MANUAL DIFF FLAG NO
[2023-08-07 11:34] LABS: Basophils Absolute Auto 0.1 X10*3/uL (0.0-0.2); Basophils Percent Auto 1.2 % (0-2); Eosinophils Absolute Auto 0.9 X10*3/uL (0.0-0.4); Eosinophils Percent Auto 15.1 % (0-4); Hematocrit 36.7 % (37.0-47.0); Hemoglobin 12.2 g/dl (12.0-16.0); Imm Gran Abs Auto 0.02 X10*3/uL (0.00-0.03); Imm Gran Pct Auto 0.3 % (0.0-0.4); Lymphocytes Absolute Auto 1.6 X10*3/uL (1.2-4.9); Lymphocytes Percent Auto 27.3 % (20-40); Mean Corpuscular HGB Conc 33.2 g/dl (31.0-35.0); Mean Corpuscular Hemoglobin 32.7 pg (27.0-33.0); Mean Corpuscular Volume 98.4 fL (80.0-98.0); Mean Platelet Volume 9.4 fL (9.4-12.3); Monocytes Absolute Auto 0.6 X10*3/uL (0.1-1.2); Monocytes Percent Auto 9.8 % (2-11); Neutrophils Absolute Auto 2.7 x10*3/uL (2.0-8.3); Neutrophils Percent Auto 46.3 % (45-73); Platelet Count 182 X10*3/uL (160-400); Red Blood Count 3.73 X10*6/uL (4.20-5.50); Red Cell Distribution Width 12.7 % (11.0-16.0); White Blood Count 5.8 X10*3/uL (4.8-10.8)
[2023-08-07 11:36] LABS: Estimated Average Glucose 108 mg/dL; Hemoglobin A1C 109.4361 umol/L; Hemoglobin A1c % 5.4 % (<6.0)
[2023-08-07 12:27] LABS: Appearance Urine Clear; Color Urine Dark Yellow; Glucose Urine UA Negative (Negative); Leukocyte Esterase Urine Negative (Negative); Nitrite Urine Negative (Negative); PH 5.5 (5.0-9.0); UMIC TRIGGER UACC YES; Urine Blood Small (1+) (Negative); Urine Ketones Negative (Negative); Urine Protein Negative (Neg-Trace)
[2023-08-07 12:32] LABS: Bacteria Urine None Seen (None Seen); Hyaline Casts Urine 0-2 /LPF (0-2); Squamous Epithelial Cell Urine 0-2 /HPF (0-2); WBC Urine 0-5 /HPF (0-5)
[2023-08-07 13:33] LABS: Creatinine Urine 176.83 mg/dL; Microalbum/Creatinine Ratio Ur 11.8 ug/mg cr (<30)
[2023-08-07 14:02] LABS: Alanine Aminotransferase 17 U/L (0-31); Alkaline Phosphatase 73 U/L (39-117); Anion Gap 11 (12-20); Aspartate Amino Transferase 23 U/L (5-31); Bilirubin Direct 0.3 mg/dL (0.0-0.5); Bilirubin Total 0.5 mg/dL (0.0-1.0); Blood Urea Nitrogen 18 mg/dL (9-16); Calcium 9.2 mg/dL (8.4-10.2); Carbon Dioxide 27 mmol/L (22-29); Chloride 109 mmol/L (96-108); Estimated Glomerular Filt Rate > 60; Glucose Fasting 85 mg/dL (60-99); Potassium 4.2 mmol/L (3.3-5.1); Sodium 143 mmol/L (135-145); Total Protein 7.1 g/dL (6.5-8.0)
[2023-08-07 14:19] LABS: TSH reflex Free T4 4.45 uIU/mL (0.32-4.0)
[2023-08-07 15:07] LABS: Free T4 (Free Thyroxine) 0.87 ng/dL (0.71-1.85)
== END 2023-08-07 11:01 | disposition home or self-care (01) ==
LOC: HO.LNP 11:00
PROVIDERS: Visit Provider Internal Medicine
DX: R73.09 Other abnormal glucose (principal); E03.9 Hypothyroidism, unspecified; E78.00 Pure hypercholesterolemia, unspecified
CPT/HCPCS: 80053; 80076; 81001; 82043; 82248; 82570; 83036; 84439; 84443; 85025

== ENCOUNTER 2023-09-13 06:31 | Day surgery (SDC) | payer MEDICARE, OTHER, SELFPAY ==
[2023-09-11 13:38] VITALS: BMI 26.6
--- NOTE | 2023-09-11 15:28 | HO.ANESPROP2 ---
HPI - Anesthesia Eval Consult details Narrative: 78yo F for Colonoscopy PMFSH Active Problems Active Problems: All Active Problems Pulmonary nodules (Acute) Chronic allergic rhinitis (Acute) Asthma (Acute) Past Medical History Medical History (Updated 09/11/23 @ 13:34 by Myrna Ventura RN) Elevated cholesterol Hypothyroid Pulmonary nodules Chronic allergic rhinitis Asthma IBS (irritable bowel syndrome) Bronchitis Surgical History Surgical History (Updated 09/11/23 @ 13:34 by Myrna Ventura RN) Hx of elbow surgery History of total right knee replacement H/O colonoscopy H/O knee surgery Social History Social History (Updated 11/28/22 @ 09:35 by ASHLEE Ramos) Patient Tobacco Use Status: Former Tobacco user Quit Date: >10 yr ago Tobacco use type: Cigarette Years Smoked: 10 years Meds Allergies Allergy/AdvReac Type Severity Reaction Status Date / Time azithromycin [From ZITHROMAX] Allergy Severe RASH Verified 07/18/23 09:41 epinephrine [EPINEPHRINE] Allergy Severe RAPID Verified 07/18/23 09:41 HEART RATE Home Medications ?Medication ?Instructions ?Recorded ?Confirmed ?Last Taken ?Type atorvastatin 20 mg tablet 20 mg PO DAILY 11/27/20 09/11/23 Unknown History paroxetine HCl 20 mg tablet 20 mg PO DAILY 11/27/20 09/11/23 Unknown History trazodone 50 mg tablet 50 mg PO BEDTIME 11/27/20 09/11/23 Unknown History celecoxib 200 mg capsule 200 mg PO DAILY 04/14/22 09/11/23 Unknown History folic acid 1 mg tablet 1 mg PO DAILY 07/18/23 09/11/23 Unknown History levothyroxine 100 mcg tablet 100 mcg PO QAM 07/18/23 09/11/23 Unknown History (Synthroid) alendronate 70 mg tablet 70 mg PO QWEEK 09/11/23 09/11/23 Unknown History Exam Height,Weight and Vital Signs: Height 5 ft 5 in Weight 72.575 kg Assessment and Plan Assessment Anesthesia Assessment: Chart Reviewed
[2023-09-13 06:51] VITALS: BP 109/56; PULSE 83; RESP 18; TEMP 36.4; O2SAT 97; BMI 27.0
[2023-09-13] MEDS: Lactated Ringers 1,000 ML 100 ML IVCONT (07:08)
[2023-09-13 08:30] VITALS: BP 116/54; PULSE 60; RESP 16; TEMP 36.1; O2SAT 97
--- NOTE | 2023-09-13 08:32 | PM.OP ---
Brief Operative Note Date of Service: 09/13/23 Pre-op diagnosis: Screening Post-op diagnosis: other (Diverticulosis) Procedure: Colonoscopy to the cecum Surgeon: Kenji Whittaker MD Anesthesia: MAC Was an After School Program Director used for this Procedure?: No Estimated blood loss (mL): 0 Pathology: none sent Condition: stable Disposition: PACU
[2023-09-13 08:45] VITALS: BP 134/56; PULSE 66; RESP 16; TEMP 36.1; O2SAT 97
--- NOTE | 2023-09-13 09:12 | OP_ITS ---
DATE OF SERVICE: 09/13/2023 SURGEON: Kenji Whittaker MD INDICATIONS: The patient presents for evaluation of colorectal cancer screening and personal history of tubular adenoma of the colon. Full consent has been obtained from her for this, including risks of bleeding and perforation. PREOPERATIVE DIAGNOSIS: POSTOPERATIVE DIAGNOSIS: PROCEDURE PERFORMED: Colonoscopy to cecum. ESTIMATED BLOOD LOSS: COMPLICATIONS: ANESTHESIA: Monitored anesthesia care. ASSISTANTS: SPECIMENS: PREOPERATIVE DIAGNOSES: Colorectal cancer screening, personal history of tubular adenoma of the colon. POSTOPERATIVE DIAGNOSES: Colorectal cancer screening, personal history of tubular adenoma of the colon, diverticulosis and internal hemorrhoids. DESCRIPTION OF PROCEDURE: The patient was placed in the left lateral decubitus position. The digital rectal exam revealed some small external hemorrhoids. The Olympus video pediatric colonoscope was entered into the rectum and advanced easily to the cecum. Once in the cecum, I did identify normal-appearing cecal pouch with appendiceal orifice and a normal-appearing ileocecal valve. The entire cecum and ileocecal valve appeared normal. There was transillumination of light deep in the right lower quadrant. The scope was then slowly withdrawn assessing all mucosal surfaces carefully. Preparation was excellent. I did not visualize any other polyps, colitis, nor angiodysplasia. There was a mild amount of sigmoid diverticulosis. In the rectum, scope was retroflexed visualizing small internal hemorrhoids, but no other pathology. The rectal mucosa appeared normal. The scope was straightened and withdrawn from the patient. She tolerated the procedure well and was returned to recovery area in stable condition. IMPRESSION: 1. Sigmoid diverticulosis. 2. Internal and external hemorrhoids. PLAN: Given today's negative exam and her age, I do not think she would need any further screening colonoscopies. She will otherwise see me on a p.r.n. basis. MD MAURI Graves/ELVIRA / [phone]
== END 2023-09-13 09:42 | disposition home or self-care (01) ==
PROVIDERS: PCP Internal Medicine; Visit Provider Internal Medicine
PROC: 0DJD8ZZ Inspection of Lower Intestinal Tract, Via Natural or Artificial Opening Endoscopic (ICD-10-PCS; CPT 45378; principal; 2023-09-13 07:30)
DX: Z12.11 Encounter for screening for malignant neoplasm of colon (principal); K57.30 Diverticulosis of large intestine without perforation or abscess without bleeding; K64.4 Residual hemorrhoidal skin tags; K64.8 Other hemorrhoids; Z86.010 Personal history of colon polyps
CPT/HCPCS: G0105; J2704

== ENCOUNTER 2023-11-20 15:23 | Outpatient (REF) | payer MEDICARE, OTHER, SELFPAY ==
--- NOTE | ~2023-11-20 | XR_ITS ---
EXAMINATION: XR KNEE, RIGHT XR KNEE, LEFT CLINICAL INFORMATION: Pain. Fall 2011 days ago. COMPARISON: Left knee radiographs dated 10/02/2018 and bilateral knee radiographs dated 12/05/2017. TECHNIQUE: AP, lateral, and sunrise views of the right and left knee. FINDINGS: RIGHT KNEE: Right knee arthroplasty in expected anatomic alignment. No hardware fracture. No perihardware lucency to suggest loosening or infection. No concerning lytic or blastic osseous lesion. Small joint effusion. Phleboliths medially measuring up to 0.7 cm. LEFT KNEE: Left knee arthroplasty in expected anatomic alignment. No hardware fracture. No perihardware lucency to suggest loosening or infection. No osseous fracture. No concerning lytic or blastic osseous lesion. Trace joint effusion. No abnormal soft tissue calcification. XR/XR knee RT 2V IMPRESSION: RIGHT KNEE: Right knee arthroplasty without evidence of complication. Small joint effusion. LEFT KNEE: Left knee arthroplasty without evidence of complication. Trace joint effusion.
--- NOTE | ~2023-11-20 | XR_ITS ---
EXAMINATION: XR KNEE, RIGHT XR KNEE, LEFT CLINICAL INFORMATION: Pain. Fall 2011 days ago. COMPARISON: Left knee radiographs dated 10/02/2018 and bilateral knee radiographs dated 12/05/2017. TECHNIQUE: AP, lateral, and sunrise views of the right and left knee. FINDINGS: RIGHT KNEE: Right knee arthroplasty in expected anatomic alignment. No hardware fracture. No perihardware lucency to suggest loosening or infection. No concerning lytic or blastic osseous lesion. Small joint effusion. Phleboliths medially measuring up to 0.7 cm. LEFT KNEE: Left knee arthroplasty in expected anatomic alignment. No hardware fracture. No perihardware lucency to suggest loosening or infection. No osseous fracture. No concerning lytic or blastic osseous lesion. Trace joint effusion. No abnormal soft tissue calcification. XR/XR knee LT 2V IMPRESSION: RIGHT KNEE: Right knee arthroplasty without evidence of complication. Small joint effusion. LEFT KNEE: Left knee arthroplasty without evidence of complication. Trace joint effusion.
== END 2023-11-20 15:24 | disposition home or self-care (01) ==
LOC: HO.XRAY 15:23
PROVIDERS: PCP Internal Medicine; Visit Provider Internal Medicine
DX: M25.561 Pain in right knee (principal); M25.562 Pain in left knee
CPT/HCPCS: 73560

== ENCOUNTER 2024-05-17 14:50 | Outpatient (REF) | payer MEDICARE, OTHER, SELFPAY ==
--- NOTE | ~2024-05-17 | XR_ITS ---
CLINICAL HISTORY: UNSPECIFIED ASTHMA WITH ACUTE EXACERBATION 2 view chest x-ray Comparison: CR - XR CHEST 2V - 09/25/20 10:54 EDT Findings: Mildly hyperaerated lungs. No consolidation, pleural effusion or pneumothorax. Normal size heart. No acute fracture. IMPRESSION: 1. No acute findings. This document has been electronically signed by: Alfreda Conrad DO on 05/17/2024 15:55:43
== END 2024-05-17 14:51 | disposition home or self-care (01) ==
LOC: HO.XRAY 14:50
PROVIDERS: PCP Internal Medicine; Visit Provider Physician Assistant
DX: J45.901 Unspecified asthma with (acute) exacerbation (principal)
CPT/HCPCS: 71046

== ENCOUNTER → 2024-05-17 14:59 | Outpatient (BNV) | payer MEDICARE, OTHER, SELFPAY | PROVIDERS: PCP Internal Medicine; Visit Provider Radiology Diagnostic Radiology | DX: J45.909 Unspecified asthma, uncomplicated (principal) | CPT/HCPCS: 71046 ==

== ENCOUNTER → 2024-06-19 16:26 | Outpatient (BNV) | payer MEDICARE, OTHER, SELFPAY | PROVIDERS: PCP Internal Medicine; Visit Provider Radiology Diagnostic Radiology | DX: R91.1 Solitary pulmonary nodule (principal) | CPT/HCPCS: 71250 ==

== ENCOUNTER 2024-07-18 10:50 | Outpatient (AMB) | payer MEDICARE, OTHER, SELFPAY ==
--- NOTE | 2024-07-18 10:53 | MHC.OFFVIS ---
Vital Signs 07/18/24 10:55 Height 5 ft 5 in Weight 151 lb 0.266 oz BMI 25.1 BP 130/68 Blood Pressure Location Rt brachial Position Sitting Pulse 73 Pulse Source Pulse Oximeter Pulse Oximetry (%) 95 Oxygen Delivery Method Room Air Intake Visit Reasons: pulmonary nodules Allergies azithromycin [From ZITHROMAX] Allergy (Severe, Verified 07/18/24 10:58) RASH epinephrine [EPINEPHRINE] Allergy (Severe, Verified 07/18/24 10:58) RAPID HEART RATE HPI Comments Details: The patient is a 79-year-old woman with a history of asthma who apparently was in the usual state health until she fell at home hitting her head and also her torso back in may 2020. She was brought to the emergency department which she had an evaluation. The patient has significant discomfort and therefore she did undergo imaging studies to assess the level of trauma. She did undergo a CT scan of the chest that demonstrated 5-6 mm ground-glass nodular density. The patient does have respiratory symptoms including cough and also developed chest tightness at times. She does have inhalers which she uses. Patient denies any night sweats or any weight loss. I personally reviewed the CT scan with her in a measured the right upper lobe nodular density to be 6 mm in size. Therefore, the patient needs to have a repeat CT scan to address the abnormal finding. 04/14/2022 the patient is here for a pulmonary follow-up visit. Overall she is doing about the same. Complains of a productive cough [id number] in severity. Does not really bother her too much. She has not been using her Advair at all. He is also very expensive for her. The last prescription she got from can of that to minimize on the cost. She is concerned about some findings on her CT scan. The patient has stable pulmonary nodules which is reassuring. It is noted that she had some emphysema although very very mild. I did try to reassure her. She did smoke many years ago and also was exposed to significant amount of secondhand smoke. The patient also has some calcifications to her coronary arteries and also his aorta. She does take cholesterol medication. in addition to this she may have a small hiatal hernia. And she does take medication for. We talked about the reflux diet. She rarely has symptoms. The more significant findings was the degree of bronchitis bilaterally primarily at the bases. Blood work demonstrates significant eosinophilia as well. Explained to her that she has chronic bronchitis primarily eosinophilic and the use of inhaled steroids will help decrease the amount of mucus production. In addition to that she is sleeping elevated which is also helping with reflux disease. Will try to maximize her respiratory therapy. If she continues to be symptomatic we can always consider biologic therapy such as an interleukin 5 inhibitor to minimize eosinophilic inflammation. 11/28/2022 the patient is here for a pulmonary follow-up visit. Overall the patient is doing well. She is having difficulties getting her inhalers. She did get a prescription for Advair from [facility]. We did talk about the good Rx card. She can consider AirDuo in the future. She will wait for her Advair right now. She also can use the good Rx card to get a rescue inhaler for reasonable borges. Denies any significant shortness of breath. She does have episodes of cough and chest tightness. The patient also has a postnasal drip. Ultimately resulting in some hoarseness intermittently. In addition to that we did look at her CT scan of the chest that she had back in the fall 2021 demonstrating small pulmonary nodules. Will going to repeat her CT next CT scan April 2023 I year plus after her last CT scan to make sure stability of the pulmonary nodules. If the CT scan is stable she does not need any further serial CT scans. 07/18/2023 the patient is here for a pulmonary follow-up visit. The patient overall has been doing well. 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 In regards of the Advair sometimes she is able to get Advair sometimes she is able to get something similar. She also has gotten the medication from [facility] in the past. Issues very expensive for. We did talk about the AirDuo inhaler that she can get with the GoodRx card. Therefore give her a prescription to the pharmacy and she can consider it. In the meantime she did have a CT scan of the chest back in April 2023 which we personally reviewed. She has multiple pulmonary nodules but has a new pulmonary nodule in the left upper lobe. The nodules measuring 4 mm in size. Therefore, she will have a repeat CT scan April 2024. Will follow-up with her after that. 07/18/2024 the patient is here for a pulmonary follow-up visit. The patient overall has been doing well. 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 Does have her Airduo and [facility]. In the meantime she did have a CT scan of the chest 07/2024 monstrating this 4mm left sided pulmonary nodule which we personally reviewed. She has multiple pulmonary nodules but has a new pulmonary nodule in the left upper lobe. The nodules measuring 4 mm in size. Again, the nodule was not there in 2021. We will plan to repeat CT chest in 18 months. If any issues arise, the pt should call for an earlier evaluation. [facility] Medical History (Updated 09/11/23 @ 13:34 by Myrna Ventura RN) Elevated cholesterol Hypothyroid Pulmonary nodules Chronic allergic rhinitis Asthma IBS (irritable bowel syndrome) Bronchitis Surgical History (Updated 09/13/23 @ 06:55 by Valencia Soriano RN) History of total left knee replacement Hx of elbow surgery History of total right knee replacement H/O colonoscopy H/O knee surgery Social History Patient Tobacco Use Status: Former Tobacco user Tobacco use type: Cigarette Years Smoked: 10 years Review of Systems Const Denies night sweats ENT Denies change in voice, Denies lip swelling, Denies mouth pain, Reports nasal congestion, Reports nasal discharge and Denies tongue swelling Card Denies chest pain Resp Denies chest congestion and Reports cough GI Denies abdominal pain Musc Denies no additional complaints Neuro Denies Neuro-related abnormal movements Psych Denies no additional complaints Ollie/Lymph Denies easy bleeding and Denies lymphadenopathy Aller/Immun Denies lip swelling and Denies tongue swelling Physical Exam Vital Signs: Last Vital Signs Pulse 73 07/18/24 10:55 BP 130/68 07/18/24 10:55 Pulse Ox 95 07/18/24 10:55 Oxygen Delivery Method Room Air 07/18/24 10:55 BMI result Body Mass Index 25.1 Const General: alert Neck Neck: Yes normal visual inspection, Yes full ROM and Yes no lymphadenopathy Chest Chest palpation & inspection: normal inspection of the chest Resp Auscultation: clear to auscultation bilaterally, no rhonchi and no wheezes Cardio Rate: regular rate Rhythm: regular rhythm Heart sounds: S1 normal heart sound present and S2 normal heart sound present GI Palpation (GI): Soft to palpation and nontender Auscultation: normal bowel sounds Skin General skin exam: rashes and/or lesions noted Assessment & Plan Assessment & Plan (1) Asthma: Code(s): J45.909 - Unspecified asthma, uncomplicated Category: Medical Qualifiers: Asthma complication type: uncomplicated Asthma persistence: persistent Asthma severity: moderate Qualified Code(s): J45.40 - Moderate persistent asthma, uncomplicated (2) Chronic allergic rhinitis: Code(s): J30.9 - Allergic rhinitis, unspecified Category: Medical (3) Pulmonary nodules: Code(s): R91.8 - Other nonspecific abnormal finding of lung field Category: Medical Plan Repeat CT scan of the chest in 12-18 months continue Airduo short-acting beta agonist as needed continue singular Reflux diet sleep with the head of bed elevated F/U 12-[address] chest Coding Level of Care Code Est Pt Level 4 (69542) Diagnoses Moderate persistent asthma without complication J45.40 Asthma complication type: uncomplicated Asthma persistence: persistent Asthma severity: moderate Chronic allergic rhinitis J30.9 Pulmonary nodules R91.8 Time Spent (min) 17
[2024-07-18 10:55] VITALS: BP 130/68; PULSE 73; O2SAT 95; BMI 25.1
--- OUTSIDE RECORDS SUMMARY | 2024-07-18 13:07 | XMS_ITS ---
Author Organization [facility] Address [address] [place] [phone] Care Team Providers Care Medical Records Clerk Name Role Phone Geronimo Goodson MD Primary Care Provider Kenji Abbott [phone] REASON FOR VISIT s/p colonoscopy symptoms Encounters Encounter Location Date Provider Diagnosis [facility] [address] [place] [phone] 09/15/2023 Kenji Whittaker Plan Of Treatment No Information Progress Notes * LILIANA WESTEDOB:1944 (78 yo F)Acc No.[id number]:09/15/2023 Patient:?RUMA WEST :1945???Age:78 Y???Sex:Female Address:[address] [place] [phone] * true * Date:? Generated for Randi bowen/Rocky/eTransmitting on:?07/18/2024 01:06 PM EST
--- OUTSIDE RECORDS SUMMARY | 2024-07-18 13:07 | XMS_ITS ---
Author Organization Geronimo Goodson MD Address [address] [place] [phone] Care Team Providers Care Testboard Operator Name Role Phone Geronimo Goodson Primary Care Provider [phone] REASON FOR VISIT RF Advair Medications Medication SIG (Take, Route, Frequency, Duration) Notes Start Date End Date Status Advair Diskus 250-50 MCG/DOSE 1 puff Inhalation Twice a day for 30 days Active Encounters Encounter Location Date Provider Diagnosis Geronimo Goodson MD [address] [place] [address] [address] [place] [phone] 06/14/2024 Geronimo Goodson Mild intermittent asthma without complication J45.20 Assessments Encounter Date Diagnosis (ICD Code) Assessment Notes Treatment Notes Treatment Clinical Notes Section Notes 06/14/2024 Mild intermittent asthma without complication (ICD-10 - J45.20) Plan Of Treatment Medication Medication Name Sig Start Date Stop Date Notes Advair Diskus 250-50 MCG/DOSE 1 puff Inh alation Twice a day for 30 days Next Appt Details Provider Name:Geronimo caban, 10/10/2024 07:00:00 AM, [address] [place] [address], [address], [phone], Provider Name:Geronimo caban, 10/17/2024 01:00:00 PM, [address] [place] [address], [address], [phone], Progress Notes * Fatou BRUSHOB:1944 (79 yo F)Acc No.[id number]:06/14/2024 Patient:Sammi SHIN :1945???Age:79 Y???Sex:Female Address:[address] [place] [phone] * Refills? Refill Advair Diskus Aerosol Powder Breath Activated, 250-50 MCG/DOSE, Inhalation, 1, 1 puff, Twice a day, 30 days, Refills=11 * true * Date:? Generated for Randi bowen/Rocky/Violetasmitting on:?07/18/2024 01:07 PM EST
--- OUTSIDE RECORDS SUMMARY | 2024-07-18 13:07 | XMS_ITS ---
Author Organization Geronimo Goodson MD Address [address] [place] [phone] Care Team Providers Care Line Dancer Name Role Phone Geronimo Goodson Primary Care Provider [phone] REASON FOR VISIT RF Advair 250/50 Medications Medication SIG (Take, Route, Frequency, Duration) Notes Start Date End Date Status Advair Diskus 250-50 MCG/DOSE 1 puff Inhalation Twice a day for 90 days Active Encounters Encounter Location Date Provider Diagnosis Geronimo Goodson MD [address] [place] [address] [place] [phone] 06/17/2024 Geronimo Goodson Mild intermittent asthma without complication J45.20 Assessments Encounter Date Diagnosis (ICD Code) Assessment Notes Treatment Notes Treatment Clinical Notes Section Notes 06/17/2024 Mild intermittent asthma without complication (ICD-10 - J45.20) Plan Of Treatment Medication Medication Name Sig Start Date Stop Date Notes Advair Diskus 250-50 MCG/DOSE 1 puff Inh alation Twice a day for 90 days Next Appt Details Provider Name:Geronimo caban, 10/10/2024 07:00:00 AM, [address] [place] [address], [address], [phone], Provider Name:Geronimo caban, 10/17/2024 01:00:00 PM, [address] [place] [address], [address], [phone], Progress Notes * Fatou BRUSHOB:1944 (79 yo F)Acc No.[id number]:06/17/2024 Patient:?Sammi BRUSH :1945???Age:79 Y???Sex:Female Address:[address] [place] [phone] * Refills? Refill Advair Diskus Aerosol Powder Breath Activated, 250-50 MCG/DOSE, Inhalation, 3, 1 puff, Twice a day, 90 days, Refills=3 * true * Date:? Generated for Randi bowen/Rocky/eTransmitting on:?07/18/2024 01:07 PM EST
--- OUTSIDE RECORDS SUMMARY | 2024-07-18 13:07 | XMS_ITS | Patient Health Record ---
Author Organization [facility] Address [address] [place] [address] Care Team Providers Care Director Paid Media Name Role Phone Kellee NICOLE, Geronimo Primary Care Provider Kenji Abbott Unavailable [phone] Allergies Allergen (clinical drug ingredient) Drug/Non Drug Allergy documented on EMR Reaction Allergy Type Onset Date Status EPINEPHrine Unknown Drug Allergy Activ e azithromycin Z-Joon (uncoded) Unknown Allergy A ctive Reason For Referral No Information Medications Medication SIG (Take, Route, Frequency, Duration) Notes Start Date End Date Status Synthroid 112 MCG 1 tablet on an empty stomach in the morning Orally Once a day Active Paxil 20 MG 1 tablet in the morn ing Orally Once a day Active traZODone HCl 50 MG 1 tablet at bedtime as needed Orally Once a day Active Vitamin E Active Atorvastatin Calcium 20 MG 1 tablet Oral ly Once a day Active Folic Acid Active Immunizations Vaccine Route Administration Date Status Comme nts Influenza Unknown 02/14/2018 Administered Social History Alcohol Screen Question Answer Notes Did you have a drink contain ing alcohol in the past year? Yes How often did you have a dri nk containing alcohol in the past year? 2 to 4 times a month (2 points) How many drinks did you have on a typical day when you were drinking in the past year? 1 or 2 drinks (0 point) How often did you have 6 or more drinks on one occasion in the past year? Never (0 point) Points 2 Interpretation Negative Section Notes: Nonsmoker; occasional alcoho l Nonsmoker; occasional alcoho l Nonsmoker; occasional alcoho l Nonsmoker since 1979; occasi onal alcohol Problems Problem Type SNOMED Code ICD Code Onset Dates Problem Status W/U Status Risk Notes Problem 414343944 Encounter for screening for malignant neoplasm of colon (Z12.11) Active confirmed Problem 842883265 History of adenomatous polyp of colon (Z86.010) Active confirmed Problem History of polyp of colon (situation) (336549260) Personal history of colonic polyps (Z86.010) Active confirmed Problem Diverticular disease of colon (867246361) Diverticulosis of large intestine without perforation or abscess without bleeding (K57.30) Active confirmed Problem 362274078443647 Preprocedural examination (Z01.818) Active confirmed Problem 40426096 Constipation, unspecified constipation type (K59.00) Active confirmed Problem 335346391 Anemia, unspecified type (D64.9) Active confirmed Problem 775637865 Left lower quadrant abdominal pain (R10.32) Active confirmed Encounters Encounter Location Date Provider Diagnosis [facility] [place] [facility] [address] [place], [place] [phone] 09/13/2023 Kenji Whittaker Encounter for screen ing colonoscopy Z12.11 ; Personal history of colonic polyps Z86.010 ; Diverticulosis of large intestine without perforation or abscess without bleeding K57.30 and Other hemorrhoids K64.8 [facility] [address] [place] [address] 09/15/2023 Kenji Whittaker Assessments Encounter Date Diagnosis (ICD Code) Assessment Notes Treatment Notes Treatment Clinical Notes Section Notes 09/13/2023 Encounter for screening colonoscopy (ICD-10 - Z12.11) 09/13/2023 Personal history of colonic polyps (ICD-10 - Z86.010) 09/13/2023 Diverticulosis of large intestine without perforation or abscess without bleeding (ICD-10 - K57.30) 09/13/2023 Other hemorrhoids (ICD-10 - K64.8) Plan Of Treatment Pending Test Test Name Order Date IRON + IBC (FE) 10/27/2016 FERRITIN 10/27/2016 VITAMIN B12 AND FOLATE 10/27/2016 CBC w DIFF 10/27/2016 CELIAC PANEL #10 10/27/2016 Future Test Test Name Order Date COLONOSCOPY 11/28/2013 COLONOSCOPY 01/01/2019 COLONOSCOPY 06/13/2023 Insurance Providers Payer Name Payer Address Payer Phone Subscriber Number Group Number Insured Name Patient Relationship to Insured Coverage Start Date Coverage End Date MEDICARE OF [place] [address] [place]INS [id number] RUMA WEST Self - patient is the insured [employer] [address] [address] [place] [address] [id number] RUMA WEST Self - patient is the insured Medical (General) History Medical History History ICD Code Colonoscopy 04-28-2003-neg. except for a hyperplastic polyp and internal hemorrhoids Hypothroidism Episode SVT Elevated cholesterol Denies NV,DM,CVA,Lung disease,renal dise ase IBS--better with Paxil Colonoscopy 02/2014-1 small tubular elizabeth vimal removed Colonoscopy in March of 2019 with rem oval of a small tubular adenoma Surgical History Surgery Date(Month/Year) Appendectomy Right knee replacement 05/2016 left knee replacement 2019 Elbow fracture 11/2016
--- OUTSIDE RECORDS SUMMARY | 2024-07-18 13:08 | XMS_ITS ---
Author Organization [facility] Address [address] [place] [address] Care Team Providers Care Security Services Manager Name Role Phone Geronimo Goodson MD Primary Care Provider UnaKenji Roberts Unavailable [phone] REASON FOR VISIT screening,hx polyps Problems Problem Type SNOMED Code ICD Code Onset Dates Problem Status W/U Status Risk Notes Problem History of polyp of colon (situation) (284424219) Personal history of colonic polyps (Z86.010) Active confirmed Problem Diverticular disease of colon (427648477) Diverticulosis of large intestine without perforation or abscess without bleeding (K57.30) Active confirmed Encounters Encounter Location Date Provider Diagnosis [facility] [address] [place] [phone] 09/13/2023 Kenji Whittaker Encounter for scre ening [...] Notes * ROBERT WESTOB:1944 (79 yo F)Acc No.[id number]:09/13/2023 COLON WITH MAC Patient:RUMA SHIN Provider:?Kenji Whittaker MD :1945???Age:78 Y???Sex:Female D ate:09/13/2023 Address:[address] [place] [address] Pcp:Geronimo Goodson MD Subjective: * Chief Complaints: * ???1. Screening,hx polyps. * Medical History:? Objective: * Vitals:? Assessment: * Assessment: 1.?Encounter for screening c olonoscopy - Z12.11 (Primary)???2.?Personal history of colonic polyps - Z86.010???3.?Diverticulosis of large intestine without perforation or abscess without bleeding - K57.30???4.?Other hemorrhoids - K64.8??? Plan: * Treatment: * Procedure Codes:?G0105 COLOR EC CANCR SCR; COLNSCPY HI RISK, 0529F INTRVL 3+YRS PTS CLNSCP DOCD, 0528F RCMND FLW-UP 10 YRS DOCD, Modifiers: 1P * * The named appointment provid er may or may not be the originator of this progress note, and it is not deemed complete until electronically signed by the appointment provider. Sign off status: Pending * Provider:?Kenji Whittaker MD Date:? 024 Generated for Randi bowen/Rocky/Violetasmitting on:?07/18/2024 01:07 PM EST
--- OUTSIDE RECORDS SUMMARY | 2024-07-18 13:08 | XMS_ITS ---
Author Organization Geronimo Goodson MD Address [address] [place], [place] [id number] Care Team Providers Care Manager Multicultural Name Role Phone Geronimo Goodson Primary Care Provider Allergies Allergen (clinical drug ingredient) Drug/Non Drug Allergy documented on EMR Reaction Allergy Type Onset Date Status azithromycin Z-Pack (uncoded) itchy rash Allergy Active epinephrine (uncoded) palpitations Allergy Active REASON FOR VISIT REVIEW CT SCAN, Video [phone] Medications Medication SIG (Take, Route, Frequency, Duration) Notes Start Date End Date Status traZODone HCl 50 MG TAKE 1 TABLET BY DANISH TH AT BEDTIME NEEDED for 90 Active Alendronate Sodium 70 MG TAKE 1 TAB BY M OUTH ONCE A WEEK ON AN EMPTY STOMACH WITH A FULL GLASS OF WATER. REMAIN UPRIGHT AND NO OTHER FOOD/DRINK FOR 30 MINS for 84 Active PARoxetine HCl 20 MG TAKE 1 TABLET EVERY MORNING for 90 Active Linzess 72 MCG 1 capsule at least 3 0 minutes before the first meal of the day on an empty stomach Orally Once a day for 30 day(s) 12/15/2022 Active Atorvastatin Calcium 20 MG TAKE 1 TABLET ONCE DAILY for 90 Active Indomethacin 50 MG TAKE 1 CAPSULE BY MO UTH THREE TIMES DAILY WITH FOOD OR MILK FOR 10 DAYS for 10 Not-Taking CeleBREX 200 MG 1 capsule with food Orally Once a day Active Synthroid 100 MCG 1 tablet in the morn ing on an empty stomach Orally Once a day 08/08/2022 Active Flonase 50.0 USE 2 SPRAYS TWICE I N EACH NOSTRIL EVERY DAY Nasally Once a day for 30 Not-Taking Folic Acid 1 MG 1 tablet Orally Once a day for 30 day(s) Active Hyoscyamine Sulfate 0.125 MG 1 tablet under the tongue and allow to dissolve as needed Sublingual Three times a day as sleepy 11/23/2021 Not-Taking Valium 5 MG 1 tablet as needed Orally Once a day for 30 days 09/23/2022 Not-Taking CeleBREX 200 MG 1 capsule with food Orally Once a day for 30 day(s) 03/24/2022 Not-Taking Singulair 10 MG 1 tablet Orally Once a day for 30 day(s) Not-Taking LORazepam 0.5 MG 1 tablet at bedtime as needed Orally Once a day for 10 days 08/24/2020 Not-Taking Semaglutide (1 MG/DOSE) 2 MG/1.5ML 10 units every 2 weeks Subcutaneous Not-Taking predniSONE 10 MG 1 tablet with food o r milk Orally 4 tabs for 4 days, 3 tabs for 4 days, 2 tbs for 4 days, and 1 tab for 4 days for 14 days 06/11/2024 Active Advair Diskus 250-50 MCG/DOSE 1 puff Inhalation Twice a day for 90 days Active Problems Problem Type SNOMED Code ICD Code Onset Dates Problem Status W/U Status Risk Notes Problem 446683113 Coronary artery calcification (I25.10) Active confirmed Vital Signs Height 64 in 06/21/2024 Weight 149 lbs 06/21/2024 BMI 25.57 kg/m2 06/21/2024 weight at home is 149 BP not taken at home no temp Encounters Encounter Location Date Provider Diagnosis Geronimo Goodson MD [address] [place] [address] [place] [phone] 06/21/2024 Geronimo Goodson Coronary artery calcification I25.10 Assessments Encounter Date Diagnosis (ICD Code) Assessment Notes Treatment Notes Treatment Clinical Notes Section Notes 06/21/2024 Coronary artery calcification (ICD-10 - I25.10) discussed CT ascan resuts with patient, and explained that sometimes this means athersclerosis and a cardiac ct would give ore info. she is going to think about it Plan Of Treatment Treatment Notes Assessment Notes Coronary artery calcification discussed CT ascan resuts with patient, and explained that sometimes this means athersclerosis and a cardiac ct would give ore info. she is going to think about it Next Appt Details Provider Name:Geronimo Bernal dreadr, 10/10/2024 07:00:00 AM, [address] [facility], [address], [place], [phone], Provider Name:Geronimo Bernal dreadr, 10/17/2024 01:00:00 PM, [address] [facility] [address], [address], [place], [phone], Progress Notes * MONIQUEEarle JERRYeDOB:1944 (79 yo F)Acc No.[id number]:06/21/2024 Patient:?BRETTSammi Provider:?Geronimo Goodson MD :1945???Age:79 Y???Sex:Female D ate:06/21/2024 Address:[address] [place], [place] [id number] Subjective: * Chief Complaints: * ???REVIEW CT SCANVideo [phone] * HPI: ???Symptom(s):?Telehealth?Location of provider rendering services:?[address] [facility], [address],?Location of patient:?at address listed in demographics for today's visit,?Patient identification confirmed using:?Name, ,?Telehealth method:?Telephone only. Patient not visible to care provider.,?Consent:?Patient verbally consented to treatment, Patient verbally consented to billing insurance company, Patient informed of any privacy concerns related to method of visit,?Total time spend talking with patient (minutes)?15.?patient is a 79 yo female audio telehealth visit here for review of recent CT Scan. * ROS:?General/Constitutional:?Denies?Chills.?Denies?Fatigue.?Denies?Fever.?Denies?Headache.?ENT:?Patient denies?decreased sense of smell, any loss of taste, sore throat.?Denies?Sore throat.?Respiratory:?Denies?Shortness of breath at rest.?Denies?Shortness of breath with exertion.?Gastrointestinal:?Denies?Diarrhea.?Denies?Nausea.?Musculoskeletal:?Patient denies?muscle aches.?Peripheral Vascular:?Patient denies?red and blue toes.? * Medical History:? * Surgical History:? * Hospitalization/Major Diagno stic Procedure:? * Medications:?TakingFolic Aci d 1 MG Tablet 1 tablet Orally Once a day CeleBREX 200 MG Capsule 1 capsule with food Orally Once a day Synthroid 100 MCG Tablet 1 tablet in the morning on an empty stomach Orally Once a day traZODone HCl 50 MG Tablet TAKE 1 TABLET BY MOUTH AT BEDTIME NEEDED Alendronate Sodium 70 MG Tablet TAKE 1 TAB BY MOUTH ONCE A WEEK ON AN EMPTY STOMACH WITH A FULL GLASS OF WATER. REMAIN UPRIGHT AND NO OTHER FOOD/DRINK FOR 30 MINS PARoxetine HCl 20 MG Tablet TAKE 1 TABLET EVERY MORNING Linzess 72 MCG Capsule 1 capsule at least 30 minutes before the first meal of the day on an empty stomach Orally Once a day Atorvastatin Calcium 20 MG Tablet TAKE 1 TABLET ONCE DAILY predniSONE 10 MG Tablet 1 tablet with food or milk Orally 4 tabs for 4 days, 3 tabs for 4 days, 2 tbs for 4 days, and 1 tab for 4 days Advair Diskus 250-50 MCG/DOSE Aerosol Powder Breath Activated 1 puff Inhalation Twice a day Taking Folic Acid 1 MG Tablet 1 tablet Orally Once a day Taking CeleBREX 200 MG Capsule 1 capsule with food Orally Once a day Taking Synthroid 100 MCG Tablet 1 tablet in the morning on an empty stomach Orally Once a day Taking traZODone HCl 50 MG Tablet TAKE 1 TABLET BY MOUTH AT BEDTIME NEEDED Taking Alendronate Sodium 70 MG Tablet TAKE 1 TAB BY MOUTH ONCE A WEEK ON AN EMPTY STOMACH WITH A FULL GLASS OF WATER. REMAIN UPRIGHT AND NO OTHER FOOD/DRINK FOR 30 MINS Taking PARoxetine HCl 20 MG Tablet TAKE 1 TABLET EVERY MORNING Taking Linzess 72 MCG Capsule 1 capsule at least 30 minutes before the first meal of the day on an empty stomach Orally Once a day Taking Atorvastatin Calcium 20 MG Tablet TAKE 1 TABLET ONCE DAILY Taking predniSONE 10 MG Tablet 1 tablet with food or milk Orally 4 tabs for 4 days, 3 tabs for 4 days, 2 tbs for 4 days, and 1 tab for 4 days Taking Advair Diskus 250-50 MCG/DOSE Aerosol Powder Breath Activated 1 puff Inhalation Twice a day Not-Taking/PRNIndomethacin 50 MG Capsule TAKE 1 CAPSULE BY MOUTH THREE TIMES DAILY WITH FOOD OR MILK FOR 10 DAYS Semaglutide (1 MG/DOSE) 2 MG/1.5ML Solution Pen-injector 10 units every 2 weeks Subcutaneous Hyoscyamine Sulfate 0.125 MG Tablet Sublingual 1 tablet under the tongue and allow to dissolve as needed Sublingual Three times a day as sleepy Valium 5 MG Tablet 1 tablet as needed Orally Once a day CeleBREX 200 MG Capsule 1 capsule with food Orally Once a day Singulair 10 MG Tablet 1 tablet Orally Once a day LORazepam 0.5 MG Tablet 1 tablet at bedtime as needed Orally Once a day Flonase 50.0 Suspension USE 2 SPRAYS TWICE IN EACH NOSTRIL EVERY DAY Nasally Once a day Medication List reviewed and reconciled with the patientNot-Taking/PRN Indomethacin 50 MG Capsule TAKE 1 CAPSULE BY MOUTH THREE TIMES DAILY WITH FOOD OR MILK FOR 10 DAYS Not-Taking/PRN Semaglutide (1 MG/DOSE) 2 MG/1.5ML Solution Pen-injector 10 units every 2 weeks Subcutaneous Not-Taking/PRN Hyoscyamine Sulfate 0.125 MG Tablet Sublingual 1 tablet under the tongue and allow to dissolve as needed Sublingual Three times a day as sleepy Not-Taking/PRN Valium 5 MG Tablet 1 tablet as needed Orally Once a day Not-Taking/PRN CeleBREX 200 MG Capsule 1 capsule with food Orally Once a day Not-Taking/PRN Singulair 10 MG Tablet 1 tablet Orally Once a day Not- Taking/PRN LORazepam 0.5 MG Tablet 1 tablet at bedtime as needed Orally Once a day Not-Taking/PRN Flonase 50.0 Suspension USE 2 SPRAYS TWICE IN EACH NOSTRIL EVERY DAY Nasally Once a day Medication List reviewed and reconciled with the patient * Allergies:?epinephrine: palp itationsZ-Pack: itchy rashyes[Allergies Verified] Objective: * Vitals:?Ht: 64, Wt: 149, BMI :25.57, Wt-k.59. weight at home is 149? BP? not taken at home? no temp. Assessment: * Assessment: 1.?Coronary artery calcifica tion - I25.10 (Primary)??? Plan: * Treatment: * Procedure Codes:? * * Sign off status: Completed true * Provider:?Geronimo Goodson MD Date:?0 06/21/2024 Generated for Randi bowen/Rocky/eTransmitting on:?07/18/2024 01:07 PM EST History and Physical Notes * HPI (History of Present Illness) Category Sub-Category Detail Notes Category Not es Symptom(s) Telehealth [facility]:: [address], [address] patient is a 79 yo female audio telehealth visit here for review of recent CT Scan Location of patient:: at address listed in demographics for today's visit Patient identification confirmed using:: Name, Telehealth method:: Telephone only. Viri ent not visible to care provider. Consent:: Patient verbally c onsented to treatment, Patient verbally consented to billing insurance company, Patient informed of any privacy concerns related to method of visit Total time spend talking with patient (m inutes): 15
--- OUTSIDE RECORDS SUMMARY | 2024-07-18 13:08 | XMS_ITS ---
Author Organization [facility] Address [address] [place] [address] Care Team Providers Care Treasury Accountant Name Role Phone Geronimo Goodson MD Primary Care Provider Kenji Abbott Unavailable [phone] Allergies Allergen (clinical drug ingredient) Drug/Non Drug Allergy documented on EMR Reaction Allergy Type Onset Date Status EPINEPHrine Unknown Drug Allergy Activ e azithromycin Z-Joon (uncoded) Unknown Allergy A ctive REASON FOR VISIT Patient presents today for a change in bowels Medications Medication SIG (Take, Route, Frequency, Duration) Notes Start Date End Date Status Synthroid 112 MCG 1 tablet on an empty stomach in the morning Orally Once a day Active Paxil 20 MG 1 tablet in the morn ing Orally Once a day Active traZODone HCl 50 MG 1 tablet at bedtime as needed Orally Once a day Active Atorvastatin Calcium 20 MG 1 tablet Oral ly Once a day Active Folic Acid Active Vitamin E Active Social History Alcohol Screen Question Answer Notes [...] point) Points 2 Interpretation Negative Section Notes: Nonsmoker since 1979; occasi onal alcohol Vital Signs Temperature 98.7 degrees Fahrenheit 06/13/19 24 Blood pressure systolic 00 mm Hg 06/13/19 24 Blood pressure diastolic 00 mm Hg 024 Height 65 in 06/13/2023 Weight 160 lbs 06/13/2023 BMI 26.62 kg/m2 06/13/2023 Encounters Encounter Location Date Provider Diagnosis [facility] [address] [place] [address] 06/13/2023 Kenji Whittaker History of adenomato us polyp of colon Z86.010 ; Constipation, unspecified constipation type K59.00 ; Encounter for screening for malignant neoplasm of colon Z12.11 and Preprocedural examination Z01.818 Assessments Encounter Date Diagnosis (ICD Code) Assessment Notes Treatment Notes Treatment Clinical Notes Section Notes 06/13/2023 History of adenomatous polyp of colon (ICD-10 - Z86.010) Overall, Ruma appears very well. I did recommend a followup colonoscopy for later this year in regard to her history of tubular adenomas of the colon and her last colonoscopy approaching the five-year erlin. We did review the rationale for this in regard to colon cancer prevention. Full consent is obtained for this, including risks of bleeding and perforation. The procedure will be done with monitored anesthesia care. In regard to her chronic constipation, I did recommend that she use of Metamucil and MiraLax on a daily and regular basis for optimal results. I advised her to stay on a high-fiber diet and drink plenty of water during the day as well. Ruma was comfortable with this plan. Thank you again for allowing me to participate in Ruma's care. I shall continue to keep you advised of her progress. 06/13/2023 Constipation, unspecified constipation type (ICD-10 - K59.00) Use the Miralax and Metamucil daily with a lot of water Overall, Ruma appears very well. I did recommend a followup colonoscopy for later this year in regard to her history of tubular adenomas of the colon and her last colonoscopy approaching the five-year erlin. We did review the rationale for this in regard to colon cancer prevention. Full consent is obtained for this, including risks of bleeding and perforation. The procedure will be done with monitored anesthesia care. In regard to her chronic constipation, I did recommend that she use of Metamucil and MiraLax on a daily and regular basis for optimal results. I advised her to stay on a high-fiber diet and drink plenty of water during the day as well. Ruma was comfortable with this plan. Thank you again for allowing me to participate in Ruma's care. I shall continue to keep you advised of her progress. 06/13/2023 Encounter for screening for malignant neoplasm of colon (ICD-10 - Z12.11) Overall, Ruma appears very well. I did recommend a followup colonoscopy for later this year in regard to her history of tubular adenomas of the colon and her last colonoscopy approaching the five-year erlin. We did review the rationale for this in regard to colon cancer prevention. Full consent is obtained for this, including risks of bleeding and perforation. The procedure will be done with monitored anesthesia care. In regard to her chronic constipation, I did recommend that she use of Metamucil and MiraLax on a daily and regular basis for optimal results. I advised her to stay on a high-fiber diet and drink plenty of water during the day as well. Ruma was comfortable with this plan. Thank you again for allowing me to participate in Ruma's care. I shall continue to keep you advised of her progress. 06/13/2023 Preprocedural examination (ICD-10 - Z01.818) Overall, Ruma appears very well. I did recommend a followup colonoscopy for later this year in regard to her history of tubular adenomas of the colon and her last colonoscopy approaching the five-year erlin. We did review the rationale for this in regard to colon cancer prevention. Full consent is obtained for this, including risks of bleeding and perforation. The procedure will be done with monitored anesthesia care. In regard to her chronic constipation, I did recommend that she use of Metamucil and MiraLax on a daily and regular basis for optimal results. I advised her to stay on a high-fiber diet and drink plenty of water during the day as well. Ruma was comfortable with this plan. Thank you again for allowing me to participate in Ruma's care. I shall continue to keep you advised of her progress. Plan Of Treatment Treatment Notes Assessment Notes Constipation, unspecified constipation t ype Use the Miralax and Metamucil daily with a lot of water Future Test Test Name Order Date COLONOSCOPY 06/13/2023 Next Appt Details Follow Up: prn, Reason: Progress Notes * ROBERT WESTOB:1944 (78 yo F)Acc No.[id number]:06/13/2023 Progress Notes Patient:?RUMA WEST Provider:?Kenji Whittaker MD :1945???Age:78 Y???Sex:Female D ate:06/13/2023 Address:[address] [place] [address] Pcp:Geronimo Goodson MD Subjective: * Chief Complaints: * ???Patient presents today fo r a change in bowels * HPI: ???incontinence:? I saw Ruma in consultation today in regard to her previous history of tubular adenomas of the colon, chronic constipation, and need for colorectal cancer screening. ?I last saw Ruma in March 2019, at which time she underwent a followup colonoscopy with removal of a small tubular adenoma. She presently feels well but does have continued problems with constipation. She is currently using Metamucil and MiraLax approximately every other day with some improvement but not complete. She did take one dose of Linzess last year but did not use it beyond the one dose as it caused diarrhea. She does find that if she uses her fiber and MiraLax more regularly things do improve. She has not had any signs of bleeding. She enjoys a good appetite, without any significant heartburn or dysphagia. She denies abdominal pain, jaundice, nor weight loss. * ROS:?General/Constitutional:?Change in appetite?denies.?Chills?denies.?Admits?Fatigue.?Ophthalmologic:?Comments?all negative.?ENT:?Comments?all negative.?Respiratory:?hemoptysis?denies.?Cough?denies.?Cardiovascular:?Chest pain?denies.?Orthopnea?denies.?Gastrointestinal:?Comments?See HPI for details.?Genitourinary:?Hematuria?denies.?Dysuria?denies.?Musculoskeletal:?Painful joints?denies.?Weakness?denies.?Skin:?Itching?denies.?Rash?denies.?Neurologic:?Headache?denies.?Seizures?denies.?Psychiatric:?Comments?all negative.? * Medical History:? 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 * Family History:?Father: dece ased, diagnosed with Diabetes.?Mother: , diagnosed with HTN (hypertension).? There is no family history of colorectal cancer or polyps. * Social History:?Tobacco Use:?Tobacco Use/Smoking?Are you a: former smoker , How long has it been since you last smoked?: > 10 years.?Drugs/Alcohol:?Alcohol Screen?Did you have a drink containing alcohol in the past year??Yes,?How often did you have a drink containing alcohol in the past year??2 to 4 times a month (2 points),?How many drinks did you have on a typical day when you were drinking in the past year??1 or 2 drinks (0 point),?How often did you have 6 or more drinks on one occasion in the past year??Never (0 point),?Points?2,?Interpretation?Negative.?Miscellaneous:?Marital status: . 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 ???Nonsmoker since 1979; occasional alcohol. * Medications:?TakingVitamin E Folic Acid Atorvastatin Calcium 20 MG Tablet 1 tablet Orally Once a dayPaxil 20 MG Tablet 1 tablet in the morning Orally Once a daySynthroid 112 MCG Tablet 1 tablet on an empty stomach in the morning Orally Once a daytraZODone HCl 50 MG Tablet 1 tablet at bedtime as needed Orally Once a dayMedication List reviewed and reconciled with the patientTaking Vitamin E Taking Folic Acid Taking Atorvastatin Calcium 20 MG Tablet 1 tablet Orally Once a dayTaking Paxil 20 MG Tablet 1 tablet in the morning Orally Once a dayTaking Synthroid 112 MCG Tablet 1 tablet on an empty stomach in the morning Orally Once a dayTaking traZODone HCl 50 MG Tablet 1 tablet at bedtime as needed Orally Once a dayMedication List reviewed and reconciled with the patient * Allergies:?German mack[Allergies Verified] Objective: * Vitals:?Wt: 160 lbs, Ht: 65 in, BMI:26.62 Index, BP: 00/00 mm Hg, Temp: 98.7. * Examination: ???General Examination: ?GENERAL APPEARANCE:?pleasant, well nourished, well developed, in no acute distress.?EYES:?sclera non-icteric.?ORAL CAVITY:?mucosa moist.?NECK/THYROID:?no cervical lymphadenopathy, neck supple.?SKIN:?nonjaundiced, no spider angiomata.?HEART:?S1, S2 normal.?LUNGS:?clear to auscultation bilaterally.?ABDOMEN:?normal bowel sounds, no guarding or rigidity, no guarding or rigidity, no masses palpable, soft, nondistended, nontender.?EXTREMITIES:?no edema.?NEUROLOGIC:?alert and oriented.? Assessment: * Assessment: 1.?Constipation, unspecified constipation type - K59.00 (Primary)?2.?History of adenomatous polyp of colon - Z86.010?3.?Encounter for screening for malignant neoplasm of colon - Z12.11?4.?Preprocedural examination - Z01.818? Overall, Ruma appears v jordan well. I did recommend a followup colonoscopy for later this year in regard to her history of tubular adenomas of the colon and her last colonoscopy approaching the five-year erlin. We did review the rationale for this in regard to colon cancer prevention. Full consent is obtained for this, including risks of bleeding and perforation. The procedure will be done with monitored anesthesia care. In regard to her chronic constipation, I did recommend that she use of Metamucil and MiraLax on a daily and regular basis for optimal results. I advised her to stay on a high-fiber diet and drink plenty of water during the day as well. Ruma was comfortable with this plan. Thank you again for allowing me to participate in Ruma's care. I shall continue to keep you advised of her progress. Plan: * Treatment: 2.?History of adenomatous po lyp of colon?Procedure: COLONOSCOPY (Ordered for 06/13/2023) 3.?Encounter for screening for malignant neoplasm of colon?Procedure: COLONOSCOPY (Ordered for 06/13/2023)* with MACsched for 09/13/23 at 8:30 ammiralax * Procedure Codes:?1036F TOBAC CO [id number] BP SCR NOT PRFRM REC REASON NOS * Preventive Medicine:? ??Counseling:?Care goal follow-up plan:?Above Normal BMI Follow-up?Giving encouragement to exercise,?BMI management provided?Yes.? ??Urinary Incontinence:?Urinary Incontinence?Assessment:?Absent,?Plan of care documented:?No, reason not specified.? * Follow Up:?prn * * Sign off status: Completed true * Provider:?Kenij Whittaker MD Date:? 024 Generated for Randi bowen/Rocky/Jordanitting on:?07/18/2024 01:08 PM EST History and Physical Notes * HPI (History of Present Illness) Category Sub-Category Detail Notes Category Not es incontinence I saw Ruma in consultation today in regard to her previous history of tubular adenomas of the colon, chronic constipation, and need for colorectal cancer screening. I last saw Ruma in March 2019, at which time she underwent a followup colonoscopy with removal of a small tubular adenoma. She presently feels well but does have continued problems with constipation. She is currently using Metamucil and MiraLax approximately every other day with some improvement but not complete. She did take one dose of Linzess last year but did not use it beyond the one dose as it caused diarrhea. She does find that if she uses her fiber and MiraLax more regularly things do improve. She has not had any signs of bleeding. She enjoys a good appetite, without any significant heartburn or dysphagia. She denies abdominal pain, jaundice, nor weight loss. Examination Category Sub-Category Detail Notes Category Not es General Examination GENERAL APPEARANCE: pleasant , well nourished, well developed, in no acute distress EYES: sclera non-icteric NECK/THYROID: no cervical lymphade nopathy, neck supple HEART: S1, S2 normal LUNGS: clear to auscultatio n bilaterally ABDOMEN: normalbowel sounds,n o guarding or rigidity,no guarding or rigidity,no masses palpable,soft, nondistended, nontender NEUROLOGIC: alert and oriented SKIN: nonjaundiced, no spi whitney angiomata EXTREMITIES: no edema ORAL CAVITY: mucosa moist
== END 2024-07-18 11:22 | disposition home or self-care (01) ==
PROVIDERS: PCP Internal Medicine; Visit Provider Hospitalist
DX: J45.40 Moderate persistent asthma, uncomplicated (principal); J30.9 Allergic rhinitis, unspecified; R91.8 Other nonspecific abnormal finding of lung field
CPT/HCPCS: 99214

== ENCOUNTER → 2024-07-18 10:50 | Outpatient (BNVA) | payer MEDICARE, OTHER, SELFPAY | PROVIDERS: PCP Internal Medicine; Visit Provider Hospitalist | DX: J45.40 Moderate persistent asthma, uncomplicated (principal); J30.9 Allergic rhinitis, unspecified; R91.8 Other nonspecific abnormal finding of lung field | CPT/HCPCS: 99212 ==

== ENCOUNTER 2024-09-17 14:04 | Outpatient (RCR) | payer MEDICARE, OTHER, SELFPAY | END 2024-09-17 14:56 | disposition home or self-care (01) | LOC: HO.PT 14:04 | PROVIDERS: PCP Internal Medicine; Visit Provider Physician Assistant | DX: M75.02 Adhesive capsulitis of left shoulder (principal) | CPT/HCPCS: 97110; 97162; 97530 ==

== ENCOUNTER 2024-10-10 10:39 | Outpatient (REF) | payer MEDICARE, OTHER, SELFPAY ==
[2024-10-10 10:44] LABS: MANUAL DIFF FLAG NO
--- OUTSIDE RECORDS SUMMARY | 2024-10-10 11:13 | XMS_ITS ---
Author Organization [facility] Address [address] [place] [phone] Care Team Providers Care Maintenance Construction Helper Name Role Phone Geronimo Goodson MD Primary Care Provider Kenji Abbott [phone] REASON FOR VISIT s/p colonoscopy symptoms Encounters Encounter Location Date Provider Diagnosis [facility] [address] [place] [phone] 09/15/2023 Kenji Whittaker Plan Of Treatment No Information Progress Notes * LILIANA WESTEDOB:1944 (78 yo F)Acc No.[id number]:09/15/2023 Patient:?RUMA WEST :1945???Age:78 Y???Sex:Female Address:[address] [place] [id number] * true * Date:? Generated for Savann[place] jessi/Rocky/eTransmitting on:?10/10/2024 11:12 AM EDT
[2024-10-10 12:12] LABS: Basophils Absolute Auto 0.1 X10*3/uL (0.0-0.2); Eosinophils Absolute Auto 0.8 X10*3/uL (0.0-0.4); Eosinophils Percent Auto 16.1 % (0-4); Hematocrit 35.1 % (37.0-47.0); Hemoglobin 11.5 g/dl (12.0-16.0); Imm Gran Abs Auto 0.01 X10*3/uL (0.00-0.03); Imm Gran Pct Auto 0.2 % (0.0-0.4); Lymphocytes Absolute Auto 1.6 X10*3/uL (1.2-4.9); Lymphocytes Percent Auto 33.7 % (20-40); Mean Corpuscular HGB Conc 32.8 g/dl (31.0-35.0); Mean Corpuscular Hemoglobin 32.7 pg (27.0-33.0); Mean Corpuscular Volume 99.7 fL (80.0-98.0); Monocytes Absolute Auto 0.5 X10*3/uL (0.1-1.2); Monocytes Percent Auto 10.3 % (2-11); Neutrophils Absolute Auto 1.9 x10*3/uL (2.0-8.3); Neutrophils Percent Auto 38.7 % (45-73); Platelet Count 167 X10*3/uL (160-400); Red Blood Count 3.52 X10*6/uL (4.20-5.50); Red Cell Distribution Width 13.2 % (11.0-16.0); White Blood Count 4.8 X10*3/uL (4.8-10.8)
[2024-10-10 12:13] LABS: Appearance Urine Clear; Color Urine Yellow; Glucose Urine UA Negative (Negative); Leukocyte Esterase Urine Trace (Negative); Nitrite Urine Negative (Negative); PH 7.5 (5.0-9.0); UMIC TRIGGER UACC YES; Urine Blood Negative (Negative); Urine Ketones Negative (Negative); Urine Protein Negative (Neg-Trace)
[2024-10-10 12:18] LABS: Estimated Average Glucose 108 mg/dL; Hemoglobin A1C 108.6444 umol/L; Hemoglobin A1c % 5.4 % (<6.0); Total Hemoglobin (HGBA1C) 3089.2615 umol/L
[2024-10-10 12:24] LABS: Creatinine Urine 51.13 mg/dL; Microalbum/Creatinine Ratio Ur 11.7 ug/mg cr (<30)
[2024-10-10 12:26] LABS: Alanine Aminotransferase 34 U/L (0-31); Albumin Level 4.1 g/dL (3.5-5.0); Alkaline Phosphatase 53 U/L (39-117); Anion Gap 10 (12-20); Aspartate Amino Transferase 38 U/L (5-31); Bilirubin Total 0.8 mg/dL (0.0-1.0); Blood Urea Nitrogen 16 mg/dL (9-16); Calcium 9.2 mg/dL (8.4-10.2); Carbon Dioxide 28 mmol/L (22-29); Chloride 111 mmol/L (96-108); Cholesterol 162 mg/dL (<200); Estimated Glomerular Filt Rate > 60; Glucose Fasting 84 mg/dL (60-99); HDL Cholesterol 58 mg/dL (>40); LDL Cholesterol Calculated 94 mg/dL (<100); Potassium 4.3 mmol/L (3.3-5.1); Sodium 145 mmol/L (135-145); Total Protein 6.9 g/dL (6.5-8.0); Triglycerides 52 mg/dL (<150)
[2024-10-10 12:33] LABS: Bacteria Urine None Seen (None Seen); Hyaline Casts Urine 0-2 /LPF (0-2); RBC Urine 0-2 /HPF (0-2); Squamous Epithelial Cell Urine 0-2 /HPF (0-2); WBC Urine 0-5 /HPF (0-5)
[2024-10-10 12:41] LABS: TSH reflex Free T4 5.09 uIU/mL (0.32-4.0)
== END 2024-10-10 10:40 | disposition home or self-care (01) ==
LOC: HO.LNP 10:39
PROVIDERS: Visit Provider Internal Medicine
DX: R73.09 Other abnormal glucose (principal); E03.9 Hypothyroidism, unspecified; E78.00 Pure hypercholesterolemia, unspecified; I10 Essential (primary) hypertension
CPT/HCPCS: 80053; 80061; 81001; 82043; 82570; 83036; 84439; 84443; 85025

== ENCOUNTER 2025-01-09 08:31 | Outpatient (REF) | payer MEDICARE, OTHER, SELFPAY ==
--- OUTSIDE RECORDS SUMMARY | 2023-09-13 03:30 | XMS_ITS ---
Author Organization [facility] Address [address] [place] [phone] Care Team Providers Care Automotive Parts Counter Assistant Name Role Phone Geronimo Goodson MD Primary Care Provider UnaKenji Roberts Unavailable [phone] REASON FOR VISIT screening,hx polyps Problems Problem Type SNOMED Code ICD Code Onset Dates Problem Status W/U Status Risk Notes Problem History of polyp of colon (situation) (000915302) Personal history of colonic polyps (Z86.010) Active confirmed Problem Diverticular disease of colon (405735358) Diverticulosis of large intestine without perforation or abscess without bleeding (K57.30) Active confirmed Encounters Encounter Location Date Provider Diagnosis [facility] Outpatient [address] [place] [phone] 09/13/2023 Kenji Whittaker Encounter for scre ening colonoscopy Z12.11 ; Personal history of colonic polyps Z86.010 ; Diverticulosis of large intestine without perforation or abscess without bleeding K57.30 and Other hemorrhoids K64.8 Assessments Encounter Date Diagnosis (ICD Code) Assessment Notes Treatment Notes Treatment Clinical Notes Section Notes 09/13/2023 Encounter for screening colonoscopy (ICD-10 - Z12.11) 09/13/2023 Personal history of colonic polyps (ICD-10 - Z86.010) 09/13/2023 Diverticulosis of large intestine without perforation or abscess without bleeding (ICD-10 - K57.30) 09/13/2023 Other hemorrhoids (ICD-10 - K64.8) Plan Of Treatment No Information Progress Notes * ROBERT WESTOB:1944 (79 yo F)Acc No.[id number]:09/13/2023 COLON WITH MAC Patient: RUMA CLIFFORD Provider: Ki Whittaker MD :1945 A ge:78 Y S ex:Female Date:09/13/2023 Address:[address] [place] [address] Pcp:Geronimo Goodson MD Subjective: * Chief Complaints: * 1 . Screening,hx polyps. * Medical History: Objective: * Vitals: Assessment: * Assessment: 1. E ncounter for screening colonoscopy - Z12.11 (Primary) 2 . P ersonal history of colonic polyps - Z86.010 3 . D iverticulosis of large intestine without perforation or abscess without bleeding - K57.30 4 . O ther hemorrhoids - K64.8? Plan: * Treatment: * Procedure Codes: G 0105 COLOREC CANCR SCR; COLNSCPY HI RISK, 0529F INTRVL 3+YRS PTS CLNSCP DOCD, 0528F RCMND FLW-UP 10 YRS DOCD, Modifiers: 1P * * The named appointment provid er may or may not be the originator of this progress note, and it is not deemed complete until electronically signed by the appointment provider. Sign off status: Pending * Provider: Ki Whittaker MD Date: 0 09/13/2023 Generated for Randi bowen/Rocky/Jordanitting on: 0 01/08/2025 03:04 PM EDT
--- OUTSIDE RECORDS SUMMARY | 2023-09-13 03:30 | XMS_ITS ---
Author Organization [facility] Address [address] [place] [phone] Care Team Providers Care Hand Printed Circuit Board Assembler Name Role Phone Geronimo Goodson MD Primary Care Provider UnaKenji Roberts Unavailable [phone] REASON FOR VISIT screening,hx polyps Problems Problem Type SNOMED Code ICD Code Onset Dates Problem Status W/U Status Risk Notes Problem History of polyp of colon (situation) (323706800) Personal history of colonic polyps (Z86.010) Active confirmed Problem Diverticular disease of colon (448306954) Diverticulosis of large intestine without perforation or abscess without bleeding (K57.30) Active confirmed Encounters Encounter Location Date Provider Diagnosis [facility] Outpatient [address] [place] [phone] 09/13/2023 Kenji Whittaker Encounter for scre ening [...] Notes * ROBERT WESTOB:1944 (79 yo F)Acc No.[id number]:09/13/2023 COLON WITH MAC Patient: RUMA CLIFFORD Provider: Ki Whittaker MD :1945 A ge:78 Y S ex:Female Date:09/13/2023 Address:[address] [place] [address] Pcp:Geronimo Goodson MD Subjective: * Chief Complaints: [...] 09/13/2023 Generated for Randi bowen/Rocky/Jordanitting on: 0 01/09/2025 09:09 AM EDT
--- OUTSIDE RECORDS SUMMARY | 2024-10-10 03:00 | XMS_ITS ---
Author Organization Geronimo Goodson MD Address [address] [place], [place] [phone] Care Team Providers Care Meter Repairer Helper Name Role Phone Geronimo Goodson Primary Care Provider Results Component Value Reference Range Notes Complete Blood Count Auto Di ff Reviewed date:10/10/2024 04:33:04 PM Interpretation: Performing Lab:[facility], [address] [place] [phone] Notes/Report: White Blood Count 4.8 4.8-10.8 X10*3/uL Red Blood Count 3.52 4.20-5.50 X10*6/uL Hemoglobin 11.5 12.0-16.0 g/dl Hematocrit 35.1 37.0-47.0 % Mean Corpuscular Volume 99.7 80.0-98.0 fL Mean Corpuscular Hemoglobin 32.7 27.0-33.0 pg Mean Corpuscular HGB Conc 32.8 31.0-35.0 g/dl Red Cell Distribution Width 13.2 11.0-16.0 % Platelet Count 167 160-400 X10*3/uL Mean Platelet Volume 10.0 9.4-12.3 fL Neutrophils Percent Auto 38.7 45-73 % Imm Gran Pct Auto 0.2 0.0-0.4 % Lymphocytes Percent Auto 33.7 20-40 % Monocytes Percent Auto 10.3 2-11 % Eosinophils Percent Auto 16.1 0-4 % Basophils Percent Auto 1.0 0-2 % NRBC Pct Auto 0.0 0.0-0.2 /100WBC Neutrophils Absolute Auto 1.9 2.0-8.3 x10*3/u L Imm Gran Abs Auto 0.01 0.00-0.03 X10*3/uL Lymphocytes Absolute Auto 1.6 1.2-4.9 X10*3/u L Monocytes Absolute Auto 0.5 0.1-1.2 X10*3/uL Eosinophils Absolute Auto 0.8 0.0-0.4 X10*3/u L Basophils Absolute Auto 0.1 0.0-0.2 X10*3/uL NRBC Abs Auto 0.000 0.0-0.012 X10*3/uL Comprehensive [place]. Panel Fa st Reviewed date:10/10/2024 04:12:05 PM Interpretation: Performing Lab:[address] [phone] Notes/Report: Sodium 145 135-145 mmol/L Potassium 4.3 3.3-5.1 mmol/L Chloride 111 96-108 mmol/L Carbon Dioxide 28 22-29 mmol/L Anion Gap 10 12-20 Blood Urea Nitrogen 16 9-16 mg/dL Creatinine 0.58 0.5-1.4 mg/dL Estimated Glomerular Filt Rate > 60 Chronic Kidney Disease: Estimated GFR < 60 mL/min/1.73m2 Severe Kidney Disease: Estimated GFR < 15 mL/min/1.73m2 Glucose Fasting 84 60-99 mg/dL Calcium 9.2 8.4-10.2 mg/dL Bilirubin Total 0.8 0.0-1.0 mg/dL Aspartate Amino Transferase 38 5-31 U/L Alanine Aminotransferase 34 0-31 U/L Total Protein 6.9 6.5-8.0 g/dL Albumin Level 4.1 3.5-5.0 g/dL Alkaline Phosphatase 53 39-117 U/L Lipid Panel Reviewed date:10/10/2024 04:12:27 PM Interpretation: Performing Lab:[address] [phone] Notes/Report: Triglycerides 52 <150 mg/dL Desirable Triglyceride: less than 150 mg/dL Borderline High Triglyceride 150-199 mg/dL High Triglyceride: 200-499 mg/dL Very High Triglyceride: greater than or equal to 5OO mg/dL Cholesterol 162 <200 mg/dL Desirable Cholesterol: less than 200 mg/dL Borderline High Cholesterol: 200-239 mg/dL High Cholesterol: greater than 239 mg/dL LDL Cholesterol Calculated 94 <100 mg/dL Desirable LDL: less than 100 mg/dL Near Optimal/Above Optimal LDL: 110-129 mg/dL Borderline High LDL: 130-159 mg/dL High LDL: 160-189 mg/dL Very High LDL: greater than or equal to 190 mg/dL HDL Cholesterol 58 >40 mg/dL Desirable HDL: greater than 40 mg/dL Note: This HDL assay may give artificially low results in patients with liver disease. TSH reflex Free T4 Reviewed date:10/10/2024 04:12:52 PM Interpretation:TRACYCK 10/17 TSH Performing Lab:[address] [phone] Notes/Report: TSH reflex Free T4 5.09 0.32-4.0 uIU/mL Microalbumin, Random Reviewed date:10/10/2024 12:35:03 PM Interpretation: Performing Lab:[facility], [address] [place] [phone] Notes/Report: Creatinine Urine 51.13 Microalbumin Urine 6.0 Microalbum/Creatinine Ratio Ur 11.7 <30 ug/mg cr Albumin/Creatinine Ratio Reference Ranges: Normal: < 30 ug/mg creatinine Microalbuminuria: 30 - 300 ug/mg creatinine Clinical Albuminuria: > 300 ug/mg creatinine Hemoglobin A1c Reviewed date:10/10/2024 12:34:32 PM Interpretation: Performing Lab:[address] [phone] Notes/Report: Hemoglobin A1c % 5.4 <6.0 % Hemoglobin A1C Reference Range Adults: 4.8 - 6.0 % Non diabetic: < 6.0 % Goal: < 7.0 % Additional Action Suggested: > 8.0 % Note: Hemoglobin A1c results are invalid for patients with abnormal amounts of HbF. Blood transfusions may impact the HbA1c concentration in the patient sample. Estimated Average Glucose 108 eAG = Estimated average glucose which is %A1C expressed as average glucose, using the formula of the G1A-Ptthvzg Average Glucose study (ADAG), Diabetes Care, Vol.31,#8, Dec. 2007 UA ClnCatch+Micro w/rflx Cul t Reviewed date:10/10/2024 07:10:42 PM Interpretation: Performing Lab:[facility], [address] [place] [address], [place] [address] Notes/Report: Urine, Clean Catch Color Urine Yellow Appearance Urine Clear PH 7.5 5.0-9.0 Glucose Urine UA Negative Negative mg/dL Urine Blood Negative Negative Specific [place] - Urine 1.010 1.005-1.025 Urine Protein Negative Neg-Trace mg/dL Urine Ketones Negative Negative mg/dL Nitrite Urine Negative Negative Leukocyte Esterase Urine Trace Negative RBC Urine 0-2 0-2 /HPF WBC Urine 0-5 0-5 /HPF Squamous Epithelial Cell Urine 0-2 0-2 /HPF Bacteria Urine None Seen None Seen Hyaline Casts Urine 0-2 0-2 /LPF REASON FOR VISIT FASTING LABS Medications Medication SIG (Take, Route, Frequency, Duration) Notes Start Date End Date Status Flonase 50.0 USE 2 SPRAYS TWICE I N EACH NOSTRIL EVERY DAY Nasally Once a day for 30 Not-Taking LORazepam 0.5 MG 1 tablet at bedtime as needed Orally Once a day for 10 days 08/24/2020 Not-Taking traZODone HCl 50 MG TAKE 1 TABLET BY DANISH EVERY DAY AT BEDTIME NEEDED for 90 Active Singulair 10 MG 1 tablet Orally Once a day for 30 day(s) Not-Taking CeleBREX 200 MG 1 capsule with food Orally Once a day for 30 day(s) 03/24/2022 Not-Taking Valium 5 MG 1 tablet as needed Orally Once a day for 30 days 09/23/2022 Not-Taking Indomethacin 50 MG TAKE 1 CAPSULE BY MO [facility] THREE TIMES DAILY WITH FOOD OR MILK FOR 10 DAYS for 10 Not-Taking Synthroid 100 MCG 1 tablet in the morn ing on an empty stomach Orally Once a day for 90 days 07/25/2024 Active Hyoscyamine Sulfate 0.125 MG 1 tablet under the tongue and allow to dissolve as needed Sublingual Three times a day as sleepy 11/23/2021 Not-Taking Semaglutide (1 MG/DOSE) 2 MG/1.5ML 10 units every 2 weeks Subcutaneous Not-Taking Linzess 72 MCG 1 capsule at least 3 0 minutes before the first meal of the day on an empty stomach Orally Once a day for 30 day(s) 12/15/2022 Active PARoxetine HCl 20 MG TAKE 1 TABLET EVERY MORNING for 90 Active Advair Diskus 250-50 MCG/DOSE 1 puff Inhalation Twice a day for 90 days Active Atorvastatin Calcium 20 MG TAKE 1 TABLET ONCE DAILY for 90 Active Alendronate Sodium 70 MG TAKE 1 TAB BY M OUTH ONCE A WEEK ON AN EMPTY STOMACH WITH A FULL GLASS OF WATER. REMAIN UPRIGHT AND NO OTHER FOOD/DRINK FOR 30 MINS for 84 Active Synthroid 100 MCG 1 tablet in the morn ing on an empty stomach Orally Once a day 08/08/2022 Active CeleBREX 200 MG 1 capsule with food Orally Once a day Active Folic Acid 1 MG 1 tablet Orally Once a day for 30 day(s) Active Encounters Encounter Location Date Provider Diagnosis Geronimo Goodson MD [address] [place] [phone] 10/10/2024 Geronimo Goodson Prediabetes R73.09 ; Acquired hypothyroidism E03.9 ; Pure hypercholesterolemia E78.00 and Labile hypertension I10 Assessments Encounter Date Diagnosis (ICD Code) Assessment Notes Treatment Notes Treatment Clinical Notes Section Notes 10/10/2024 Prediabetes (ICD-10 - R73.09) 10/10/2024 Acquired hypothyroid ism (ICD-10 - E03.9) 10/10/2024 Pure hypercholesterolemia (ICD-10 - E78.00) 10/10/2024 Labile hypertension (ICD-10 - I10) Plan Of Treatment Next Appt Details Provider Name:Geronimo caban, 01/14/2025 08:00:00 AM, [address] [place] [address], [phone], Provider Name:Geronimo caban, 01/16/2025 11:15:00 AM, [address] [place] [address], [phone], Provider Name:Geronimo caban, 04/14/2025 07:45:00 AM, [address] [place] [address], [phone], Provider Name:Geronimo caban, 04/21/2025 01:30:00 PM, [address] [place] [address], [phone], Provider Name:Geronimo Bernal ier, 10/13/2025 07:45:00 AM, [address], [address], [place], [phone], Provider Name:Geronimo Bernal dreadr, 10/20/2025 01:00:00 PM, [address], [address], [place], [phone], Progress Notes * Earle BRUSHMichaelOB:1944 (79 yo F)Acc No.[id number]:10/10/2024 Progress Note Patient: Sammi CLIFFORD Provider: Gracy Goodson MD :1945 A ge:79 Y S ex:Female Date:10/10/2024 Address:[address] [place], [place] [phone] Subjective: * Chief Complaints: * 1 . FASTING LABS. * Medical History: * Medications: T aking Folic Acid 1 MG Tablet 1 tablet Orally Once a day , Taking CeleBREX 200 MG Capsule 1 capsule with food Orally Once a day , Taking Synthroid 100 MCG Tablet 1 tablet in the morning on an empty stomach Orally Once a day , Taking Alendronate Sodium 70 MG Tablet TAKE 1 TAB BY MOUTH ONCE A WEEK ON AN EMPTY STOMACH WITH A FULL GLASS OF WATER. REMAIN UPRIGHT AND NO OTHER FOOD/DRINK FOR 30 MINS , Taking PARoxetine HCl 20 MG Tablet TAKE 1 TABLET EVERY MORNING , Taking Linzess 72 MCG Capsule 1 capsule at least 30 minutes before the first meal of the day on an empty stomach Orally Once a day , Taking Atorvastatin Calcium 20 MG Tablet TAKE 1 TABLET ONCE DAILY , Taking Advair Diskus 250-50 MCG/DOSE Aerosol Powder Breath Activated 1 puff Inhalation Twice a day , Taking Synthroid 100 MCG Tablet 1 tablet in the morning on an empty stomach Orally Once a day , Taking traZODone HCl 50 MG Tablet TAKE 1 TABLET BY MOUTH EVERY DAY AT BEDTIME NEEDED , Not-Taking/PRN Indomethacin 50 MG Capsule TAKE 1 CAPSULE BY MOUTH THREE TIMES DAILY WITH FOOD OR MILK FOR 10 DAYS , Not-Taking/PRN Semaglutide (1 MG/DOSE) 2 MG/1.5ML Solution Pen-injector 10 units every 2 weeks Subcutaneous , Not-Taking/PRN Hyoscyamine Sulfate 0.125 MG Tablet Sublingual 1 tablet under the tongue and allow to dissolve as needed Sublingual Three times a day as sleepy , Not-Taking/PRN Valium 5 MG Tablet 1 tablet as needed Orally Once a day , Not-Taking/PRN CeleBREX 200 MG Capsule 1 capsule with food Orally Once a day , Not-Taking/PRN Singulair 10 MG Tablet 1 tablet Orally Once a day , Not-Taking/PRN LORazepam 0.5 MG Tablet 1 tablet at bedtime as needed Orally Once a day , Not-Taking/PRN Flonase 50.0 Suspension USE 2 SPRAYS TWICE IN EACH NOSTRIL EVERY DAY Nasally Once a day Objective: * Vitals: Assessment: * Assessment: 1. P rediabetes - R73.09 (Primary) 2 . A cquired hypothyroidism - E03.9? 3. P ure hypercholesterolemia - E78.00 4 . L abile hypertension - I10 Plan: * Treatment: 2. A cquired hypothyroidism L AB: Complete Blood Count Auto Diff (Collection Date & Time - 10/10/2024 07:00 AM) L AB: Comprehensive [place]. Panel Fast (Collection Date & Time - 10/10/2024 07:00 AM) L AB: Lipid Panel (Collection Date & Time - 10/10/2024 07:00 AM) L AB: TSH reflex Free T4 (Collection Date & Time - 10/10/2024 07:00 AM) L AB: Microalbumin, Random (Collection Date & Time - 10/10/2024 07:00 AM) L AB: Hemoglobin A1c (Collection Date & Time - 10/10/2024 07:00 AM) L AB: UA ClnCatch+Micro w/rflx Cult (Collection Date & Time - 10/10/2024 07:00 AM) 3. P ure hypercholesterolemia L AB: Complete Blood Count Auto Diff (Collection Date & Time - 10/10/2024 07:00 AM) L AB: Comprehensive [place]. Panel Fast (Collection Date & Time - 10/10/2024 07:00 AM) L AB: Lipid Panel (Collection Date & Time - 10/10/2024 07:00 AM) L AB: TSH reflex Free T4 (Collection Date & Time - 10/10/2024 07:00 AM) L AB: Microalbumin, Random (Collection Date & Time - 10/10/2024 07:00 AM) L AB: Hemoglobin A1c (Collection Date & Time - 10/10/2024 07:00 AM) L AB: UA ClnCatch+Micro w/rflx Cult (Collection Date & Time - 10/10/2024 07:00 AM) 4. L abile hypertension L AB: Complete Blood Count Auto Diff (Collection Date & Time - 10/10/2024 07:00 AM) L AB: Comprehensive [place]. Panel Fast (Collection Date & Time - 10/10/2024 07:00 AM) L AB: Lipid Panel (Collection Date & Time - 10/10/2024 07:00 AM) L AB: TSH reflex Free T4 (Collection Date & Time - 10/10/2024 07:00 AM) L AB: Microalbumin, Random (Collection Date & Time - 10/10/2024 07:00 AM) L AB: Hemoglobin A1c (Collection Date & Time - 10/10/2024 07:00 AM) L AB: UA ClnCatch+Micro w/rflx Cult (Collection Date & Time - 10/10/2024 07:00 AM) * Procedure Codes: 3 6415 VENIPUNCT, ROUTINE* * * The named appointment provid er may or may not be the originator of this progress note, and it is not deemed complete until electronically signed by the appointment provider. Sign off status: Pending * Provider: Gracy Goodson MD Date: 0 10/10/2024 Generated for Randi bowen/Rocky/Jordanitting on: 0 01/08/2025 03:05 PM EDT
--- OUTSIDE RECORDS SUMMARY | 2024-10-10 03:00 | XMS_ITS ---
Author Organization Geronimo Goodson MD Address [address] [place], [place] [phone] Care Team Providers Care Rubber Extrusion Machine Operator Name Role Phone Geronimo Goodson Primary Care Provider [phone] Results Component Value Reference Range Notes Complete Blood Count Auto Di ff Reviewed date:10/10/2024 04:33:04 PM Interpretation: Performing Lab:[facility], [address] [place] [phone] Notes/Report: White Blood Count 4.8 4.8-10.8 X10*3/uL [...] NRBC Abs Auto 0.000 0.0-0.012 X10*3/uL Comprehensive [place]. Panel Fa st Reviewed date:10/10/2024 04:12:05 PM Interpretation: Performing Lab:[address] [phone] Notes/Report: Sodium 145 135-145 mmol/L Potassium 4.3 [...] Panel Reviewed date:10/10/2024 04:12:27 PM Interpretation: Performing Lab:[address] [address] Notes/Report: Triglycerides 52 <150 mg/dL Desirable Triglyceride: [...] date:10/10/2024 04:12:52 PM Interpretation:TRACYCK 10/17 TSH Performing Lab:[address] [address] Notes/Report: TSH reflex Free T4 5.09 0.32-4.0 uIU/mL Microalbumin, Random Reviewed date:10/10/2024 12:35:03 PM Interpretation: Performing Lab:[facility], [address] [place] [phone] Notes/Report: Creatinine Urine 51.13 Microalbumin Urine 6.0 Microalbum/Creatinine Ratio Ur 11.7 <30 ug/mg cr Albumin/Creatinine Ratio Reference Ranges: Normal: < 30 ug/mg creatinine Microalbuminuria: 30 - 300 ug/mg creatinine Clinical Albuminuria: > 300 ug/mg creatinine Hemoglobin A1c Reviewed date:10/10/2024 12:34:32 PM Interpretation: Performing Lab:[address] [phone] Notes/Report: Hemoglobin A1c % 5.4 <6.0 % [...] average glucose, using the formula of the O5C-Apgsbrq Average Glucose study (ADAG), Diabetes Care, Vol.31,#8, Dec. 2007 UA ClnCatch+Micro w/rflx Cul t Reviewed date:10/10/2024 07:10:42 PM Interpretation: Performing Lab:[facility], [address] [place] [address], [place] [address] Notes/Report: Urine, Clean Catch Color Urine Yellow Appearance Urine Clear PH 7.5 5.0-9.0 Glucose Urine UA Negative Negative mg/dL Urine Blood Negative Negative Specific [place] - Urine 1.010 1.005-1.025 Urine Protein Negative [...] 50 MG TAKE 1 CAPSULE BY MO [facility] THREE TIMES DAILY WITH FOOD OR MILK [...] Location Date Provider Diagnosis Geronimo Goodson MD [address] [place] [phone] 10/10/2024 Geronimo Goodson Prediabetes R73.09 ; Acquired [...] Details Provider Name:Geronimo caban, 01/14/2025 08:00:00 AM, [address] [place] [address], [phone], Provider Name:Geronimo caban, 01/16/2025 11:15:00 AM, [address] [place] [address], [phone], Provider Name:Geronimo caban, 04/14/2025 07:45:00 AM, [address] [place] [address], [phone], Provider Name:Geronimo caban, 04/21/2025 01:30:00 PM, [address] [place] [address], [phone], Provider Name:Geronimo Bernal ier, 10/13/2025 07:45:00 AM, [address], [address], [place], [phone], Provider Name:Geronimo Bernal dreadr, 10/20/2025 01:00:00 PM, [address], [address], [place], [phone], Progress Notes * Earle BRUSHMichaelOB:1944 (79 yo F)Acc No.[id number]:10/10/2024 Progress Note Patient: Sammi CLIFFORD Provider: Gracy Goodson MD :1945 A ge:79 Y S ex:Female Date:10/10/2024 Address:[address] [place], [place] [phone] Subjective: * Chief Complaints: * 1 . [...] - 10/10/2024 07:00 AM) L AB: Comprehensive [place]. Panel Fast (Collection Date & Time - [...] - 10/10/2024 07:00 AM) L AB: Comprehensive [place]. Panel Fast (Collection Date & Time - [...] - 10/10/2024 07:00 AM) L AB: Comprehensive [place]. Panel Fast (Collection Date & Time - [...] 10/10/2024 Generated for Randi bowen/Rocky/Jordanitting on: 0 01/09/2025 09:09 AM EDT
--- OUTSIDE RECORDS SUMMARY | 2024-10-17 09:00 | XMS_ITS ---
Author Organization Geronimo Goodson MD Address [address] [place], [place] [id number] Care Team Providers Care Juice Packaging Machines Setter Name Role Phone Geronimo Goodson Primary Care Provider [phone] Allergies Allergen (clinical drug ingredient) Drug/Non Drug Allergy documented on EMR Reaction Allergy Type Onset Date Status azithromycin Z-Pack (uncoded) itchy rash Allergy Active epinephrine (uncoded) palpitations Allergy Active REASON FOR VISIT review labs, CBACK TSH Medications Medication SIG (Take, Route, Frequency, Duration) Notes Start Date End Date Status Flonase 50.0 USE 2 SPRAYS TWICE I N EACH NOSTRIL EVERY DAY Nasally Once a day for 30 Not-Taking Atorvastatin Calcium 20 MG TAKE 1 TABLET ONCE DAILY Act tamiko Synthroid 112 MCG 1 tablet in the morn ing on an empty stomach Orally Once a day for 90 days 08/08/2022 Active Advair Diskus 250-50 MCG/DOSE 1 puff Inhalation Twice a day Active CeleBREX 200 MG 1 capsule with food Orally Once a day Active LORazepam 0.5 MG 1 tablet at bedtime as needed Orally Once a day for 10 days 08/24/2020 Not-Taking CeleBREX 200 MG 1 capsule with food Orally Once a day for 30 day(s) 03/24/2022 Not-Taking Singulair 10 MG 1 tablet Orally Once a day for 30 day(s) Not-Taking Hyoscyamine Sulfate 0.125 MG 1 tablet under the tongue and allow to dissolve as needed Sublingual Three times a day as sleepy 11/23/2021 Not-Taking Valium 5 MG 1 tablet as needed Orally Once a day for 30 days 09/23/2022 Not-Taking Synthroid 100 MCG 1 tablet in the morn ing on an empty stomach Orally Once a day for 90 days 07/25/2024 Active Linzess 72 MCG 1 capsule at least 3 0 minutes before the first meal of the day on an empty stomach Orally Once a day for 30 day(s) 12/15/2022 Active Indomethacin 50 MG TAKE 1 CAPSULE BY MO [facility] THREE TIMES DAILY WITH FOOD OR MILK FOR 10 DAYS for 10 Not-Taking Semaglutide (1 MG/DOSE) 2 MG/1.5ML 10 units every 2 weeks Subcutaneous Not-Taking traZODone HCl 50 MG TAKE 1 TABLET BY DANISH EVERY DAY AT BEDTIME NEEDED for 90 Active Alendronate Sodium 70 MG TAKE 1 TAB BY M [facility] ONCE A WEEK ON AN EMPTY STOMACH WITH A FULL GLASS OF WATER. REMAIN UPRIGHT AND NO OTHER FOOD/DRINK FOR 30 MINS for 84 Active PARoxetine HCl 20 MG TAKE 1 TABLET EVERY MORNING for 90 Active Folic Acid 1 MG 1 tablet Orally Once a day for 30 day(s) Active Social History Tobacco Use: Social History Observation Description Date Details (start date - stop date) Former Smoker NA - NA Tobacco Use/Smoking Question Answer Notes Patient is a former smoker How long has it been since y ou last smoked? > 10 years Additional Findings: Tobacco Non-User Fo rmer smoker, currently using no form of tobacco AUDIT-C (Standard) Question Answer Notes Did you have a [...] (0 point) How often did you have six o r more drinks on one occasion in the past year? Never (0 point) Points 2 Interpretation Negative Vital Signs Blood pressure systolic 110 mm Hg 10/18/19 25 Blood pressure diastolic 62 mm Hg 025 Height 64 in 10/17/2024 Weight 146 lbs 10/17/2024 BMI 25.06 kg/m2 10/17/2024 weight is down 3 pounds [facility] e 08-05-24 Encounters Encounter Location Date Provider Diagnosis Geronimo Goodson MD [address] [place] [address] [address] [place], [place] [id number] 10/17/2024 Geronimo Goodson Prediabetes R73.09 ; Acquired hypothyroidism E03.9 ; Pure hypercholesterolemia E78.00 ; Labile hypertension I10 ; Arthritis M19.90 ; Mild intermittent asthma without complication J45.20 and Depression screening Z13.31 Assessments Encounter Date Diagnosis (ICD Code) Assessment Notes Treatment Notes Treatment Clinical Notes Section Notes 10/17/2024 Prediabetes (ICD-10 - R73.09) good a1c, no riccardo for medication at this time, will continue to monitor 10/17/2024 Acquired hypothyroid ism (ICD-10 - E03.9) stable, will continue current regiment 10/17/2024 Pure hypercholesterolemia (ICD-10 - E78.00) well controlled, will continue current regiment 10/17/2024 Labile hypertension (ICD-10 - I10) doing well, will continue to monitor 10/17/2024 Arthritis (ICD-10 - M19.90) stable, will continue current regoment 10/17/2024 Mild intermittent as thma without complication (ICD-10 - J45.20) doing well, will continue current regiment 10/17/2024 Depression screening (ICD-10 - Z13.31) negative screen Plan Of Treatment Medication Medication Name Sig Start Date Stop Date Notes Atorvastatin Calcium 20 MG TAKE 1 TABLET ONCE DAILY Synthroid 112 MCG 1 tablet in the morn ing on an empty stomach Orally Once a day for 90 days 08/08/2022 Advair Diskus 250-50 MCG/DOSE 1 puff Inh alation Twice a day CeleBREX 200 MG 1 capsule with food Orally Once a day Treatment Notes Assessment Notes Prediabetes good a1c, no riccardo for medication at this time, will continue to monitor Acquired hypothyroidism stable, will con tinue current regiment Pure hypercholesterolemia well controlle d, will continue current regiment Labile hypertension doing well, will con tinue to monitor Arthritis stable, will continu e current regoment Mild intermittent asthma without complic ation doing well, will continue current regiment Depression screening negative screen Future Test Test Name Order Date TSH reflex Free T4 01/17/2025 Next Appt Details Follow Up: 6 Months, Reason: Provider Name:Geronimo caban, 01/14/2025 08:00:00 AM, [address], [address], [place], [place], [id number], Provider Name:Geronimo Bernal ier, 01/16/2025 11:15:00 AM, [address] [place] [address], [address], [place], [id number], Provider Name:Geronimo Aguilarkarime ier, 04/14/2025 07:45:00 AM, [address] [place] [address], [address], [place], [place], [id number], Provider Name:Geronimo Howell Gabe ier, 04/21/2025 01:30:00 PM, [address] [place] [address], [address], [place], [place], [id number], Provider Name:Geronimo Howell Gabe canadar, 10/13/2025 07:45:00 AM, [address] [place] [address], [address], [place], [place], [id number], Provider Name:Geronimo Dante Gabe canadar, 10/20/2025 01:00:00 PM, [address] [place] [address], Suite [facility], [place], [place], [id number], Progress Notes * Earle BRUSHMichaelOB:1944 (79 yo F)Acc No.[id number]:10/17/2024 Patient: Sammi CLIFFORD Provider: Gracy Goodson MD :1945 A ge:79 Y S ex:Female Date:10/17/2024 Address:[address] [place] [address] [place], [id number] Subjective: * Chief Complaints: * R eview labsCBACK TSH * HPI: D epression Screening: PHQ-9 L ittle interest or pleasure in doing things N ot at all, F eeling down, depressed, or hopeless N ot at all, T rouble falling or staying asleep, or sleeping too much N ot at all, F eeling tired or having little energy N ot at all, P oor appetite or overeating N ot at all, F eeling bad about yourself or that you are a failure, or have let yourself or your family down N ot at all, T rouble concentrating on things, such as reading the newspaper or watching television N ot at all, M oving or speaking so slowly that other people could have noticed; or the opposite, being so fidgety or restless that you have been moving around a lot more than usual N ot at all, T houghts that you would be better off or of hurting yourself in some way N ot at all, T otal Score 0 . I nterpretation and Intervention D epression Screening Findings N egative, F ollow-Up for Depression : review of PHQ-9 found negative result, no follow-up needed. C ommunication Needs: Communication Needs D oes the patient have a hearing impairment N o, D oes the patient have a vision impairment? Y es, I f yes, what is the vision impairment? G lasses, D oes the patient have a cognition impairment? N o. F all Risk: History H ave you had any falls with injury in the past year? N o, H ave you had two or more falls in the past year? N o. S LACI Questions: SDOH Questions I n the past year have you been worried about losing housing? N o, I n the past year have you or any family members you live with been unable to get any of the following when it was really needed? Check all that apply: N one. S ymptom(s): patient is a 79 yo female here for review of recent labs and follow up of chronic issues. * ROS: G eneral/Constitutional: Change in appetite d enies. C hills d enies. F ever d enies. O phthalmologic: Blurred vision d enies. D ischarge d enies. P ain d enies. E NT: Decreased hearing d enies. S ore throat d enies.?Swollen glands d enies. E ndocrine: Cold intolerance d enies. E xcessive thirst d enies. H eat intolerance d enies. W eight loss d enies. R espiratory: Cough d enies. S hortness of breath at rest d enies. S hortness of breath with exertion d enies. W heezing d enies. C ardiovascular: Chest pain at rest d enies. C hest pain with exertion?denies. I rregular heartbeat d enies. S hortness of breath d enies. ? G astrointestinal: Abdominal pain d enies. C hange in bowel habits d enies. D iarrhea d enies. N ausea d enies. R ectal bleeding d enies. V omiting d enies . G enitourinary: Blood in urine d enies. D ifficulty urinating d enies. F requent urination d enies. U rinary incontinence D enies. M usculoskeletal: Painful joints d enies. W eakness d enies. ? S kin: Dry skin d enies. I tching d enies. D enies?Mole(s), changes in moles, new moles or any lesions of concern. D enies P hotosensitivity. R katherine d enies. N eurologic: Dizziness d enies. F ainting d enies. H eadache?denies. * Medical History: * Surgical History: * Hospitalization/Major Diagno stic Procedure: * Family History: F ather: 85 yrs, diagnosed with Cancer. M other: 93 yrs, diagnosed with CHF. 2 son(s) , 2 daughter(s) - healthy. . Father - lung cancer mother CHF, No pertinent family medical history, Denies mental health/substance abuse family history, Denies mental health/substance abuse family history, Denies mental health/substance abuse family history, Denies mental health/substance abuse family history. * Social History: T obacco Use: T obacco Use/Smoking P atient is a f ormer smoker, H ow long has it been since you last smoked? > 10 years, A dditional Findings: Tobacco Non-User F ormer smoker, currently using no form of tobacco. M iscellaneous: C affeine: yes, frequency:. Exercise: no. Home smoke detector use: yes. Pets: 1 dog. Travel outside of the [place]: no. D rug/Alcohol: A ALEX-C (Standard) D id you have a drink containing alcohol in the past year? Y es, H ow often did you have a drink containing alcohol in the past year? 2 to 4 times a month (2 points), H ow many drinks did you have on a typical day when you were drinking in the past year? 1 or 2 drinks (0 point), H ow often did you have six or more drinks on one occasion in the past year? N ever (0 point), P oints 2 , I nterpretation N egative. * Medications: T akingFolic Acid 1 MG Tablet 1 tablet Orally Once a day CeleBREX 200 MG Capsule 1 capsule with food Orally Once a day Synthroid 100 MCG Tablet 1 tablet in the morning on an empty stomach Orally Once a day Alendronate Sodium 70 MG Tablet TAKE 1 [...] MG Tablet TAKE 1 TABLET ONCE DAILY Advair Diskus 250-50 MCG/DOSE Aerosol Powder Breath Activated 1 puff Inhalation Twice a day Synthroid 100 MCG Tablet 1 tablet in the morning on an empty stomach Orally Once a day traZODone HCl 50 MG Tablet TAKE 1 TABLET BY MOUTH EVERY DAY AT BEDTIME NEEDED Taking Folic Acid 1 MG Tablet 1 tablet Orally Once a day Taking CeleBREX 200 MG Capsule 1 capsule with food Orally Once a day Taking Synthroid 100 MCG Tablet 1 tablet in the morning on an empty stomach Orally Once a day Taking Alendronate Sodium 70 MG Tablet TAKE [...] Tablet TAKE 1 TABLET ONCE DAILY Taking Advair Diskus 250-50 MCG/DOSE Aerosol Powder Breath Activated 1 puff Inhalation Twice a day Taking Synthroid 100 MCG Tablet 1 tablet in the morning on an empty stomach Orally Once a day Taking traZODone HCl 50 MG Tablet TAKE 1 TABLET BY MOUTH EVERY DAY AT BEDTIME NEEDED Not-Taking/PRNIndomethacin 50 MG Capsule TAKE 1 CAPSULE [...] reviewed and reconciled with the patient * Allergies: e pinephrine: palpitationsZ-Pack: itchy rashyes[Allergies Verified] Objective: * Vitals: H t: 64, Wt: 146, BMI:25.06, BP:110/62, Wt-k.23. weight is down 3 pounds since 08-05-24. * P ast Orders: L ab:Microalbumin, Random (Order Date - 10/10/2024) (Collection Date & Time - 10/10/2024 07:00 AM) Value Reference Range Creatinine Urine 51.13 - mg/dL Microalbumin Urine 6.0 - mg/L Microalbum Creatinine Ratio Ur 11.7 <30 - ug/ mg cr L ab:Hemoglobin A1c (Order Date - 10/10/2024) (Collection Date & Time - 10/10/2024 07:00 AM) Value Reference Range Hemoglobin A1c % 5.4 <6.0 - % Estimated Average Glucose 108 - mg/dL L ab:Complete Blood Count Auto Diff (Order Date - 10/10/2024) (Collection Date & Time - 10/10/2024 07:00 AM) Value Reference Range White Blood Count 4.8 4.8-10.8 - X10*3/uL Red Blood Count 3.52 L 4.20-5.50 - X10*6/uL Hemoglobin 11.5 L 12.0-16.0 - g/dl Hematocrit 35.1 L 37.0-47.0 - % Mean Corpuscular Volume 99.7 H 80.0-98.0 - fL Mean Corpuscular Hemoglobin 32.7 27.0-33.0 - pg Mean Corpuscular HGB Conc 32.8 31.0-35.0 - g/ dl Red Cell Distribution Width 13.2 11.0-16.0 - % Platelet Count 167 160-400 - X10*3/uL Mean Platelet Volume 10.0 9.4-12.3 - fL Neutrophils Percent Auto 38.7 L 45-73 - % Imm Gran Pct Auto 0.2 0.0-0.4 - % Lymphocytes Percent Auto 33.7 20-40 - % Monocytes Percent Auto 10.3 2-11 - % Eosinophils Percent Auto 16.1 H 0-4 - % Basophils Percent Auto 1.0 0-2 - % NRBC Pct Auto 0.0 0.0-0.2 - /100WBC Neutrophils Absolute Auto 1.9 L 2.0-8.3 - x10* 3/uL Imm Gran Abs Auto 0.01 0.00-0.03 - X10*3/uL Lymphocytes Absolute Auto 1.6 1.2-4.9 - X10* 3/uL Monocytes Absolute Auto 0.5 0.1-1.2 - X10*3/ uL Eosinophils Absolute Auto 0.8 H 0.0-0.4 - X10* 3/uL Basophils Absolute Auto 0.1 0.0-0.2 - X10*3/ uL NRBC Abs Auto 0.000 0.0-0.012 - X10*3/uL L ab:UA ClnCatch+Micro w/rflx Cult (Order Date - 10/10/2024) (Collection Date & Time - 10/10/2024 07:00 AM) Value Reference Range Color Urine Yellow - Appearance Urine Clear - PH 7.5 5.0-9.0 - Glucose Urine UA Negative Negative - mg/dL Urine Blood Negative Negative - Specific [place] - Urine 1.010 1.005-1.025 - Urine Protein Negative Neg-Trace - mg/dL Urine Ketones Negative Negative - mg/dL Nitrite Urine Negative Negative - Leukocyte Esterase Urine Trace A Negative - RBC Urine 0-2 0-2 - /HPF WBC Urine 0-5 0-5 - /HPF Squamous Epithelial Cell Urine 0-2 0-2 - /HP F Bacteria Urine None Seen None Seen - Hyaline Casts Urine 0-2 0-2 - /LPF L ab:Comprehensive [place]. Panel Fast (Order Date - 10/10/2024) (Collection Date & Time - 10/10/2024 07:00 AM) Value Reference Range Sodium 145 135-145 - mmol/L Bilirubin Total 0.8 0.0-1.0 - mg/dL Aspartate Amino Transferase 38 H 5-31 - U/L Alanine Aminotransferase 34 H 0-31 - U/L Total Protein 6.9 6.5-8.0 - g/dL Albumin Level 4.1 3.5-5.0 - g/dL Alkaline Phosphatase 53 39-117 - U/L Potassium 4.3 3.3-5.1 - mmol/L Chloride 111 H 96-108 - mmol/L Carbon Dioxide 28 22-29 - mmol/L Anion Gap 10 L 12-20 - Blood Urea Nitrogen 16 9-16 - mg/dL Creatinine 0.58 0.5-1.4 - mg/dL Estimated Glomerular Filt Rate > 60 - Glucose Fasting 84 60-99 - mg/dL Calcium 9.2 8.4-10.2 - mg/dL L ab:Free T4 (Free Thyroxine) (Order Date - 10/10/2024) (Collection Date & Time - 10/10/2024 07:00 AM) Value Reference Range Free T4 (Free Thyroxine) 0.90 0.71-1.85 - ng/ dL L ab:Lipid Panel (Order Date - 10/10/2024) (Collection Date & Time - 10/10/2024 07:00 AM) Value Reference Range Triglycerides 52 <150 - mg/dL Cholesterol 162 <200 - mg/dL LDL Cholesterol Calculated 94 <100 - mg/dL HDL Cholesterol 58 >40 - mg/dL L ab:TSH reflex Free T4 (Order Date - 10/10/2024) (Collection Date & Time - 10/10/2024 07:00 AM) Result: CBACK 6/5 TSH Value Reference Range TSH reflex Free T4 5.09 H 0.32-4.0 - uIU/mL * Examination: G eneral Examination: GENERAL APPEARANCE: w ell developed, well nourished, in no acute distress. HEAD: n ormocephalic, atraumatic. EYES: p upils equal, round, reactive to light and accommodation, sclera non-icteric. EARS: n ormal. ORAL CAVITY: m ucosa moist. THROAT: c lear. NECK/THYROID: n james supple, full range of motion, no cervical lymphadenopathy, no bruits. SKIN: w arm and dry, no suspicious lesions. HEART: r egular rate and rhythm, S1, S2 normal, no murmurs.? LUNGS: c lear to auscultation bilaterally. BREASTS: N o mass, no lump. ABDOMEN: s oft, nontender, nondistended, bowel sounds present, normal, no organomegaly , no masses palpable. RECTAL EXAM: d one by surgical garment assembler. FEMALE GENITOURINARY: d one by surgical garment assembler. EXTREMITIES: n o clubbing, cyanosis, or edema. NEUROLOGIC: n onfocal, motor strength normal upper and lower extremities, sensory exam intact. Assessment: * Assessment: 1. P rediabetes - R73.09 (Primary) 2 . A cquired hypothyroidism - E03.9? 3. P ure hypercholesterolemia - E78.00 4 . L abile hypertension - I10 5 . A rthritis - M19.90 6 . M ild intermittent asthma without complication - J45.20 7 . D epression screening - Z13.31 ? Plan: * Treatment: 2. A cquired hypothyroidism Continue Synthroid Tablet, 112 MCG, 1 tablet in the morning on an empty stomach, Orally, Once a day, 90 days, 90 Tablet, Refills 3. Notes: stable, will continue current regiment 3. P ure hypercholesterolemia Continue Atorvastatin Calcium Tablet, 20 MG, TAKE 1 TABLET ONCE DAILY. Notes: well controlled, will continue current regiment 4. L abile hypertension L AB: TSH reflex Free T4 (Ordered for 01/17/2025) Notes: doing well, will continue to monitor 5. A rthritis Continue CeleBREX Capsule, 200 MG, 1 capsule with food, Orally, Once a day. Notes: stable, will continue current regoment 6. M ild intermittent asthma without complication Continue Advair Diskus Aerosol Powder Breath Activated, 250-50 MCG/DOSE, 1 puff, Inhalation, Twice a day. Notes: doing well, will continue current regiment 7. D epression screening Notes: negative screen * Procedure Codes: G 2211 Complex e/m visit add on * Follow Up: 6 Months * * Sign off status: Completed true * Provider: Gracy Goodson MD Date: 0 10/17/2024 Generated for Randi bowen/Rocky/Jordanitting on: 0 01/09/2025 09:08 AM EDT History and Physical Notes * HPI (History of Present Illness) Category Sub-Category Detail Notes Category Not es Symptom(s) patient is a 79 yo female here for review of recent labs and follow up of chronic issues Depression Screening PHQ-9 Little inte rest or pleasure in doing things: Not at all Feeling down, depressed, or hopeless: No t at all Trouble falling or staying asleep, or sl eeping too much: Not at all Feeling tired or having little energy: N ot at all Poor appetite or overeating: Not at all Feeling bad about yourself o r that you are a failure, or have let yourself or your family down: Not at all Trouble concentrating on thi ngs, such as reading the newspaper or watching television: Not at all Moving or speaking so slowly that other people could have noticed; or the opposite, being so fidgety or restless that you have been moving around a lot more than usual: Not at all Thoughts that you would be b lisandro off or of hurting yourself in some way: Not at all Total Score: 0 Interpretation and Intervention Depression Scree vonda Findings: Negative Follow-Up for Depression: : review of PH Q-9 found negative result, no follow-up needed SDOH Questions SDOH Questions In the past year have you been worried about losing housing?: No In the past year have you or any family members you live with been unable to get any of the following when it was really needed? Check all that apply:: None Fall Risk History Have you had any falls with injury i n the past year?: No Have you had two or more falls in the year?: No Communication Needs Communication Needs Does the patient have a hearing impairment: No Does the patient have a vision impairmen t?: Yes If yes, what is the vision impairment?: Glasses Does the patient have a cognition impair ment?: No Examination Category Sub-Category Detail Notes Category Not es General Examination GENERAL APPEARANCE: well dev eloped, well nourished, in no acute distress HEAD: normocephalic, atrau matic EYES: pupils equal, round, reactive to light and accommodation, sclera non-icteric EARS: normal THROAT: clear NECK/THYROID: neck supple, full ra nge of motion, no cervical lymphadenopathy, no bruits HEART: regular rate and rhy thm, S1, S2 normal, no murmurs LUNGS: clear to auscultatio n bilaterally ABDOMEN: soft, nontender, non distended, bowel sounds present, normal, no organomegaly , no masses palpable NEUROLOGIC: nonfocal, motor stre ngth normal upper and lower extremities, sensory exam intact SKIN: warm and dry, no titi picious lesions EXTREMITIES: no clubbing, cyanosi s, or edema BREASTS: No mass, no lump RECTAL EXAM: done by surgical garment assembler FEMALE GENITOURINARY: done by surgical garment assembler ORAL CAVITY: mucosa moist
--- OUTSIDE RECORDS SUMMARY | 2024-10-17 09:00 | XMS_ITS ---
Author Organization Geronimo Goodson MD Address [address] [place], [place] [id number] Care Team Providers Care Injection Molding Machine Offbearer Name Role Phone Geronimo Goodson Primary Care [...] 50 MG TAKE 1 CAPSULE BY MO [facility] THREE TIMES DAILY WITH FOOD OR MILK FOR 10 DAYS for 10 Not-Taking Semaglutide (1 MG/DOSE) 2 MG/1.5ML 10 units every 2 weeks Subcutaneous Not-Taking traZODone HCl 50 MG TAKE 1 TABLET BY DANISH EVERY DAY AT BEDTIME NEEDED for 90 Active Alendronate Sodium 70 MG TAKE 1 TAB BY M [facility] ONCE A WEEK ON AN EMPTY STOMACH [...] kg/m2 10/17/2024 weight is down 3 pounds [facility] e 08-05-24 Encounters Encounter Location Date Provider Diagnosis Geronimo Goodson MD [address] [place] [address] [address] [place], [place] [id number] 10/17/2024 Geronimo Goodson Prediabetes R73.09 ; Acquired [...] 08:00:00 AM, [address], [address], [place], [place], [id number], Provider Name:Geronimo Bernal ier, 01/16/2025 11:15:00 AM, [address] [place] [address], [address], [place], [id number], Provider Name:Geronimo Aguilarkarime ier, 04/14/2025 07:45:00 AM, [address] [place] [address], [address], [place], [place], [phone], Provider Name:Geronimo Howell Gabe ier, 04/21/2025 01:30:00 PM, [address] [place] [address], [address], [place], [place], [phone], Provider Name:Geronimo Howell Gabe canadar, 10/13/2025 07:45:00 AM, [address] [place] [address], [address], [place], [place], [phone], Provider Name:Geronimo Dante Gabe canadar, 10/20/2025 01:00:00 PM, [address] [place] [address], Suite [facility], [place], [place], [phone], Progress Notes * Earle BRUSHMichaelOB:1944 (79 yo F)Acc No.[id number]:10/17/2024 Patient: Sammi CLIFFORD Provider: Gracy Goodson MD :1945 A ge:79 Y S ex:Female Date:10/17/2024 Address:[address] [place] [address] [place], [id number] Subjective: * Chief Complaints: * R eview [...] Pets: 1 dog. Travel outside of the [place]: no. D rug/Alcohol: A ALEX-C (Standard) [...] mg/dL Urine Blood Negative Negative - Specific [place] - Urine 1.010 1.005-1.025 - Urine Protein [...] Urine 0-2 0-2 - /LPF L ab:Comprehensive [place]. Panel Fast (Order Date - 10/10/2024) (Collection [...] masses palpable. RECTAL EXAM: d one by ob gyn. FEMALE GENITOURINARY: d one by ob gyn. EXTREMITIES: n o clubbing, cyanosis, or edema. [...] 10/17/2024 Generated for Randi bowen/Rocky/Jordanitting on: 0 01/08/2025 03:03 PM EDT History and Physical Notes * HPI [...] mass, no lump RECTAL EXAM: done by ob gyn FEMALE GENITOURINARY: done by ob gyn ORAL CAVITY: mucosa moist
--- OUTSIDE RECORDS SUMMARY | 2025-01-07 11:00 | XMS_ITS ---
Author Organization Geronimo Goodson MD Address [address] [place], [place] [id number] Care Team Providers Care Cord Splicer Name Role Phone Geronimo Goodson Primary Care Provider [phone] Allergies Allergen (clinical drug ingredient) Drug/Non Drug Allergy documented on EMR Reaction Allergy Type Onset Date Status azithromycin Z-Pack (uncoded) itchy rash Allergy Active epinephrine (uncoded) palpitations Allergy Active REASON FOR VISIT fatigue Medications Medication SIG (Take, Route, Frequency, Duration) Notes Start Date End Date Status Valium 5 MG 1 tablet as needed Orally Once a day for 30 days 09/23/2022 Not-Taking CeleBREX 200 MG 1 capsule with food Orally Once a day for 30 day(s) 03/24/2022 Not-Taking Singulair 10 MG 1 tablet Orally Once a day for 30 day(s) Not-Taking LORazepam 0.5 MG 1 tablet at bedtime as needed Orally Once a day for 10 days 08/24/2020 Not-Taking Flonase 50.0 USE 2 SPRAYS TWICE I N EACH NOSTRIL EVERY DAY Nasally Once a day for 30 Not-Taking Atorvastatin Calcium 20 MG TAKE 1 TABLET ONCE DAILY Act tamiko Advair Diskus 250-50 MCG/DOSE 1 puff Inhalation Twice a day Active Indomethacin 50 MG TAKE 1 CAPSULE BY [facility] THREE TIMES DAILY WITH FOOD OR MILK FOR 10 DAYS for 10 Not-Taking Semaglutide (1 MG/DOSE) 2 MG/1.5ML 10 units every 2 weeks Subcutaneous Not-Taking Hyoscyamine Sulfate 0.125 MG 1 tablet under the tongue and allow to dissolve as needed Sublingual Three times a day as sleepy 11/23/2021 Not-Taking CeleBREX 200 MG 1 capsule with food Orally Once a day Active Linzess 72 MCG 1 capsule at least 3 0 minutes before the first meal of the day on an empty stomach Orally Once a day for 30 day(s) 12/15/2022 Active Synthroid 100 MCG 1 tablet in the morn ing on an empty stomach Orally Once a day for 90 days 07/25/2024 Active traZODone HCl 50 MG TAKE 1 TABLET BY DANISH TH EVERY DAY AT BEDTIME NEEDED for 90 Active Synthroid 112 MCG 1 tablet in the morn ing on an empty stomach Orally Once a day for 90 days 08/08/2022 Active Folic Acid 1 MG 1 tablet Orally Once a day for 30 day(s) Not-Taking Alendronate Sodium 70 MG TAKE 1 TAB BY M OUT ONCE A WEEK ON AN EMPTY STOMACH WITH A FULL GLASS OF WATER. REMAIN UPRIGHT AND NO OTHER FOOD/DRINK FOR 30 MINS for 84 Active PARoxetine HCl 20 MG TAKE 1 TABLET EVERY MORNING for 90 Active Vital Signs Blood pressure systolic 112 mm Hg 01/08/20 25 Blood pressure diastolic 50 mm Hg 025 Height 64 in 01/07/2025 Weight 143 lbs 01/07/2025 BMI 24.54 kg/m2 01/07/2025 weight is down 3 pounds sinc e 6-5-25 standing BP 82/40 Encounters Encounter Location Date Provider Diagnosis Geronimo Goodson MD [address] [place] [address] [address] [place], [place] [phone] 01/07/2025 Geronimo Goodson Light headed R42 and Orthostatic hypotension I95.1 Assessments Encounter Date Diagnosis (ICD Code) Assessment Notes Treatment Notes Treatment Clinical Notes Section Notes 01/07/2025 Light headed (ICD-10 - R42) 01/07/2025 Orthostatic hypotension (ICD-10 - I95.1) Plan Of Treatment Pending Test Test Name Order Date VITAMIN B12 AND FOLATE 01/07/2025 Complete Blood Count Auto Diff Comprehensive [place]. Panel Fast IRON PROFILE 01/07/2025 TSH reflex Free T4 01/07/2025 Next Appt Details Follow Up: 1 Week, Reason: Provider Name:Geronimo caban, 01/14/2025 08:00:00 AM, [address], [address], [place], [id number], Provider Name:Geronimo canadar, 01/16/2025 11:15:00 AM, [address], [address], [place], [place], [phone], Provider Name:Geronimo Bernal ier, 04/14/2025 07:45:00 AM, [address], [address], [place], [place], [id number], Provider Name:Geronimo Bernal ier, 04/21/2025 01:30:00 PM, [address], [address], [place], [place], [id number], Provider Name:Geronimo Bernal ier, 10/13/2025 07:45:00 AM, [address] [place] [address], Suite [facility], [place], [place], [id number], Provider Name:Geronimo canadar, 10/20/2025 01:00:00 PM, [address] [place] [address] Drive, Suite [facility], [place], [phone], Progress Notes * Fatou BRUSHOB:1944 (79 yo F)Acc No.[id number]:01/07/2025 Progress Notes Patient: Sammi CLIFFORD Provider: Gracy Goodson MD :1945 A ge:79 Y S ex:Female Date:01/07/2025 Address:[address] [place], [place] [id number] Subjective: * Chief Complaints: * 1 . Fatigue. * HPI: S ymptom(s): patient is a 79 yo female here with complaint of fatigue. * ROS: G eneral/Constitutional: Denies C hills. A dmits F atigue. D enies F ever. D enies H eadache. E NT: Denies S ore throat. R espiratory: Denies C ough. D enies S hortness of breath at rest. D enies S hortness of breath with exertion. C ardiovascular: Denies C hest pain at rest. D enies C hest pain with exertion. A dmits D izziness. D enies F luid accumulation in the legs. D enies?Palpitations. D enies S hortness of breath. G astrointestinal: Denies D iarrhea. D enies N ausea. * Medical History: c olonoscopy due 2011 being done apr 2013; colonoscopy 02/19/2014 - repeat 5 years; Colonoscopy 04/04/[address] Whittaker - repeat 5 years(2023), Lung nodule too small to require treatment per Fleischner criteria 2020, Colonoscopy 2023 no need for further, Hematuria work up 2021. * Medications: T aking Alendronate Sodium 70 MG Tablet TAKE 1 [...] stomach Orally Once a day , Taking Synthroid 100 MCG Tablet 1 tablet in the morning on an empty stomach Orally Once a day , Taking traZODone HCl 50 MG Tablet TAKE 1 TABLET BY MOUTH EVERY DAY AT BEDTIME NEEDED , Taking Synthroid 112 MCG Tablet 1 tablet in the morning on an empty stomach Orally Once a day , Taking CeleBREX 200 MG Capsule 1 capsule with food Orally Once a day , Taking Atorvastatin Calcium 20 MG Tablet TAKE 1 TABLET ONCE DAILY , Taking Advair Diskus 250-50 MCG/DOSE Aerosol Powder Breath Activated 1 puff Inhalation Twice a day , Not-Taking/PRN Folic Acid 1 MG Tablet 1 tablet Orally Once a day , Not-Taking/PRN Indomethacin 50 MG Capsule TAKE [...] NOSTRIL EVERY DAY Nasally Once a day , Medication List reviewed and reconciled with the patient * Allergies: e pinephrine: palpitations, Z-Pack: itchy rash. Objective: * Vitals: H t: 64, Wt: 143, BMI:24.54, BP:112/50, Repeat BP:80/58 standing, Wt-k.86. weight is down 3 pounds since 10-17-24 standing BP 82/40. * Examination: G eneral Examination: GENERAL APPEARANCE: w ell developed, well nourished. HEAD: n ormocephalic. SKIN: p jimbo. HEART: r egular rate and rhythm, no murmurs, rubs, gallops.? LUNGS: g ood air movement few wheezes. ? Assessment: * Assessment: 1. L ight headed - R42 (Primary) 2 . O rthostatic hypotension - I95.1 ? Plan: * Treatment: * Follow Up: 1 Week * * The named appointment provid er may or may not be the originator of this progress note, and it is not deemed complete until electronically signed by the appointment provider. Sign off status: Pending * Provider: Gracy Goodson MD Date: 01/07/2025 Generated for Randi bowen/Rocky/Jordanitting on: 01/08/2025 03:04 PM EDT History and Physical Notes * HPI (History of Present Illness) Category Sub-Category Detail Notes Category Not es Symptom(s) patient is a 79 yo female here with complaint of fatigue Examination Category Sub-Category Detail Notes Category Not es General Examination GENERAL APPEARANCE: well developed , well nourished HEAD: normocephalic HEART: regular rate and rhy thm, no murmurs, rubs, gallops LUNGS: good air movement fe w wheezes SKIN: pale
--- OUTSIDE RECORDS SUMMARY | 2025-01-07 11:00 | XMS_ITS ---
Author Organization Geronimo Goodson MD Address [address] [place], [place] [phone] Care Team Providers Care Medical Records Auditor Name Role Phone Geronimo Goodson Primary Care [...] Indomethacin 50 MG TAKE 1 CAPSULE BY [facility] THREE TIMES DAILY WITH FOOD OR [...] Location Date Provider Diagnosis Geronimo Goodson MD [address] [place] [address] [address] [place], [place] [phone] 01/07/2025 Geronimo Goodson Light headed R42 and Orthostatic hypotension I95.1 Assessments Encounter Date Diagnosis (ICD Code) Assessment Notes Treatment Notes Treatment Clinical Notes Section Notes 01/07/2025 Light headed (ICD-10 - R42) 01/07/2025 Orthostatic hypotension (ICD-10 - I95.1) Plan Of Treatment Pending Test Test Name Order Date VITAMIN B12 AND FOLATE 01/07/2025 Complete Blood Count Auto Diff Comprehensive [place]. Panel Fast IRON PROFILE 01/07/2025 TSH reflex Free T4 01/07/2025 Next Appt Details Follow Up: 1 Week, Reason: Provider Name:Geronimo caban, 01/14/2025 08:00:00 AM, [address], [address], [place], [id number], Provider Name:Geronimo canadar, 01/16/2025 11:15:00 AM, [address], [address], [place], [place], [id number], Provider Name:Geronimo Bernal ier, 04/14/2025 07:45:00 AM, [address], [address], [place], [place], [id number], Provider Name:Geronimo Bernal ier, 04/21/2025 01:30:00 PM, [address], [address], [place], [place], [id number], Provider Name:Geronimo Bernal ier, 10/13/2025 07:45:00 AM, [address] [place] [address], Suite [facility], [place], [place], [phone], Provider Name:Geronimo canadar, 10/20/2025 01:00:00 PM, [address] [place] [address] Drive, Suite [facility], [place], [id number], Progress Notes * Fatou BRUSHOB:1944 (79 yo F)Acc No.[id number]:01/07/2025 Progress Notes Patient: Sammi CLIFFORD Provider: Gracy Goodson MD :1945 A ge:79 Y S ex:Female Date:01/07/2025 Address:[address] [place], [place] [phone] Subjective: * Chief Complaints: * 1 . [...] Date: 01/07/2025 Generated for Randi bowen/Rocky/Jordanitting on: 01/09/2025 09:09 AM EDT History and Physical Notes * [...]
--- OUTSIDE RECORDS SUMMARY | 2025-01-08 15:03 | XMS_ITS | Patient Health Record ---
Author Organization [facility] Address [address] [place] [address] Care Team Providers Care Jigger Machine Operator Name Role Phone Kellee NICOLE, Geronimo Primary Care Provider Kenji Abbott Unavailable [phone] Allergies Allergen (clinical drug ingredient) Drug/Non Drug [...] Problem Status W/U Status Risk Notes Problem [id number] Encounter for screening for malignant neoplasm of colon (Z12.11) Active confirmed Problem 610148844 History of adenomatous polyp of colon (Z86.010) Active confirmed Problem History of polyp of colon (situation) (839581819) Personal history of colonic polyps (Z86.010) Active confirmed Problem Diverticulosis o f large intestine without perforation or abscess without bleeding (K57.30) Active confirmed Problem 718550472310866 Preprocedural examination (Z01.818) Active confirmed Problem 75062045 Constipation, unspecified constipation type (K59.00) Active confirmed Problem 020989335 Anemia, unspecified type (D64.9) Active confirmed Problem 943251660 Left lower quadrant abdominal pain (R10.32) Active confirmed Plan Of Treatment Pending Test Test Name [...] End Date MEDICARE OF [place] [address] [place] [address] [phone] [id number] RUMA WEST Self - patient is the insured [employer] [address] [address] [place] [address] [phone] [id number] RUMA WEST Self - patient is the insured Medical (General) History Medical History History ICD Code Colonoscopy 04-28-2003-neg. except for a hyperplastic polyp and internal hemorrhoids Hypothroidism Episode SVT Elevated cholesterol Denies PR,DM,CVA,Lung disease,renal dise ase IBS--better with Paxil Colonoscopy 02/2014-1 small tubular elizabeth vimal removed Colonoscopy in March of 2019 with rem oval of a small tubular adenoma Surgical History Surgery Date(Month/Year) Appendectomy Right knee replacement 05/2016 left knee replacement 2020 Elbow fracture 11/2016
--- OUTSIDE RECORDS SUMMARY | 2025-01-08 15:03 | XMS_ITS | Clinical Summary ---
Author Organization [facility] Address [address] [facility] [address] [place] [address] Phone Care Team Providers Care Industrial Relations Manager Name Role Phone Geronimo Goodson MD Primary Care Provider Immunizations Immunization Administration Dates Next Due COVID-19 (Pre-03/06) Pfizer Vaccine, Bivalent 12+ 02/28/2022 COVID-19 (Pre-03/06) Pfizer Vaccine, mRNA, PF 09/14/2021,02/10/2021,06/23/2020,2020 Influenza, Unspecified Formulation 02/22/2022 Tdap 11/15/2016 Social History Tobacco Use Types Packs/Day Years Used Date Smoking Tobacco: Never Assessed Education Answer Date Recorded Are you interested in more education? Not on raul e 09/10/2022 Are you concerned about learning? Not on file 09/10/2022 No 09/10/2022 No 09/10/2022 Digital Access Answer Date Recorded No 10/09/2022 No 10/09/2022 No 10/09/2022 Reliable internet access at home? Not on file 10/09/2022 Device with a working camera? Not on file Comments Unknown Sex and Gender Information Value Date Recorded Sex Assigned at Not on file Legal Sex Female 2:38 PM EST Gender Identity Not on file Sexual Orientation Not on file Plan of Treatment Upcoming Encounters Date Type Department Care Team ([facility] Contact Info) Description 05/18/2026 10:00 AM EST Office Visit [facility] in [address] [place] [address] Jaspal Figueroa MD, PhD [address] [facility] [address] [place] [address] Health Maintenance Due Date Last Done Comments LIPID PANEL 1945 DEPRESSION SCREENING 1959 SMOKING Hx and SMOKELESS TOBACCO SCREENING 1960 HEPATITIS C SCREENING 1965 PNEUMOCOCCAL VACCINES (50+ years) (1 of 1 - PCV) 1997 ZOSTER VACCINES (1 of 2) 1997 OSTEOPOROSIS SCREENING INITIAL (ONE-TIME) 2012 RSV VACCINE (1 - 1-dose 75+ series) 2022 COVID-19 VACCINE ( - season) 2024 02/28/2022, 09/14/2021, 02/10/2021, Additional history exists Adult Td,Tdap Booster 11/15/2026 11/15/2016 HEPATITIS A VACCINES Aged Out No long er eligible based on patient's age to complete this topic HIB VACCINES Aged Out No longer eligi ble based on patient's age to complete this topic MENINGOCOCCAL VACCINES (ACWY) Aged Out No longer eligible based on patient's age to complete this topic MENINGOCOCCAL VACCINES (B) Aged Out N o longer eligible based on patient's age to complete this topic Medical Devices Not on file Insurance MEDICARE SUPPLEMENT MEDICARE PART A & B MELIDA WOMACK [id number] MEDICARE PART A & [place] [address] [address] [place] [address] MEDICARE SUPPLEMENT MEDICARE PART A & B MEDICARE PART A & B MEDICARE SUPPLEMENT MEDICARE PART A & B MEDICARE SUPPLEMENT MEDICARE PART A & B [employer] MEDICARE SUPPLEMENT MEDICARE PART A & B Care Teams Industrial Relations Manager Relationship Specialty Start Date End Date Geronimo Goodson MD [address] [place] [address] [place] [address] PCP - General Internal Medicine 05/02/22 Additional Source Comments The information contained in this document represents components of the legal health record. It is not the complete legal health record.[facility]
--- OUTSIDE RECORDS SUMMARY | 2025-01-08 15:04 | XMS_ITS | Patient Health Record ---
Author Organization Geronimo Goodson MD Address [address] [place], [place] [id number] Care Team Providers Care Teacher Music Name Role Phone Geronimo Goodson Primary Care Provider Allergies Allergen (clinical drug ingredient) Drug/Non Drug Allergy documented on EMR Reaction Allergy Type Onset Date Status azithromycin Z-Pack (uncoded) itchy rash Allergy Active epinephrine (uncoded) palpitations Allergy Active Results Component Value Reference Range Notes Complete Blood Count Auto Di ff Reviewed date:10/10/2024 04:33:04 PM Interpretation: Performing Lab:[facility], [address] [place] [phone] Notes/Report: White Blood Count 4.8 4.8-10.8 X10*3/uL [...] 0.0-0.2 /100WBC Neutrophils Absolute Auto 1.9 2.0-8.3 x10*3/uL Imm Gran Abs Auto 0.01 0.00-0.03 X10*3/uL Lymphocytes Absolute Auto 1.6 1.2-4.9 X10*3/uL Monocytes Absolute Auto 0.5 0.1-1.2 X10*3/uL Eosinophils Absolute Auto 0.8 0.0-0.4 X10*3/uL Basophils Absolute Auto 0.1 0.0-0.2 X10*3/uL NRBC Abs Auto 0.000 0.0-0.012 X10*3/uL Comprehensive Daniel. Panel Fa Reviewed date:10/10/2024 04:12:05 PM Interpretation: Performing Lab:[facility], [address] [place] [phone] Notes/Report: Sodium 145 135-145 mmol/L Potassium 4.3 [...] Panel Reviewed date:10/10/2024 04:12:27 PM Interpretation: Performing Lab:[facility], [address] [place] [phone] Notes/Report: Triglycerides 52 <150 mg/dL Desirable Triglyceride: [...] reflex Free T4 Reviewed date:10/10/2024 04:12:52 PM Interpretation:TRACY 6/5 TSH Performing Lab:[facility], [address] [place] [phone] Notes/Report: TSH reflex Free T4 5.09 0.32-4.0 uIU/mL Microalbumin, Random Reviewed date:10/10/2024 12:35:03 PM Interpretation: Performing Lab:[facility], [address] [place] [phone] Notes/Report: Creatinine Urine 51.13 Microalbumin Urine 6.0 Microalbum/Creatinine Ratio Ur 11.7 <30 ug/mg cr Albumin/Creatinine Ratio Reference Ranges: Normal: < 30 ug/mg creatinine Microalbuminuria: 30 - 300 ug/mg creatinine Clinical Albuminuria: > 300 ug/mg creatinine Hemoglobin A1c Reviewed date:10/10/2024 12:34:32 PM Interpretation: Performing Lab:[facility], [address] [place] [phone] Notes/Report: Hemoglobin A1c % 5.4 <6.0 % [...] average glucose, using the formula of the Q0T-Rctesop Average Glucose study (ADAG), Diabetes Care, Vol.31,#8, 2007 UA ClnCatch+Micro w/rflx Cul t Reviewed date:10/10/2024 07:10:42 PM Interpretation: Performing Lab:[facility], [address] [place] [phone] Notes/Report: Urine, Clean Catch Color Urine Yellow Appearance Urine Clear PH 7.5 5.0-9.0 Glucose Urine UA Negative Negative mg/dL Urine Blood Negative Negative Specific [place] - Urine 1.010 1.005-1.025 Urine Protein Negative Neg-Trace mg/dL Urine Ketones Negative Negative mg/dL Nitrite Urine Negative Negative Leukocyte Esterase Urine Trace Negative RBC Urine 0-2 0-2 /HPF WBC Urine 0-5 0-5 /HPF Squamous Epithelial Cell Urine 0-2 0-2 /HPF Bacteria Urine None Seen None Seen Hyaline Casts Urine 0-2 0-2 /LPF XR chest 2V Reviewed date:05/17/2024 04:49:00 PM Interpretation: Performing Lab: Notes/Report: [address] [address] XRay Report Signed Patient: Sammi Brush MR#: [id number] : 1945 Acct:[id number] Age/Sex: 79 / F ADM Date: 05/17/24 Loc: DEANDRA Attending Dr: Viri Physician Ordering Physician: Ramos Muse Date of Service: 05/17/24 Procedure(s): XR chest 2V Accession Number(s): [id number] cc: Ramos Muse; Geronimo Goodson MD CLINICAL HISTORY: UNSPECIFIED ASTHMA WITH ACUTE EXACERBATION 2 view chest x-ray Comparison: CR - XR CHEST 2V - 09/25/20 10:54 EDT Findings: Mildly hyperaerated lungs. No consolidation, pleural effusion or pneumothorax. Normal size heart. No acute fracture. IMPRESSION: 1. No acute findings. This document has been electronically signed by: Alfreda Conrad DO on 05/17/2024 15:55:43 Dictated By: Alfreda Conrad MD Signed By: <Electronically signed by Alfreda Conrad MD in OV> 05/17/241556 DD/ 54 TD/TT: 05/17/241554 Resource Conservationist: [address] [address] XRay Report Signed Patient: Sammi Brush MR#: [id number] : 1945 Acct:[id number] Age/Sex: 79 / F ADM Date: 05/17/24 Loc: HO.XRAY Attending Dr: Klaus caldwell Physician Ordering Physician: Ramos Muse Date of Service: 05/17/24 Procedure(s): XR moreno st 2V Accession Number(s): [id number] cc: Olga Muse; Geronimo Goodson MD CLINICAL HISTORY: UNSPECIFIED ASTHMA WITH ACUTE EXACERBATION 2 view chest x-ray Comparison: CR - XR CHEST 2V - 09/25/20 10:54 EDT Findings: Mildly hyperaerated lungs. No consolidation, pleural effusion or pneumothorax. Normal size heart. No acute fracture. IMPRESSION: 1. No acute findings. This document has be en electronically signed by: Alfreda Conrad DO on 05/17/2024 15:55:43 Dictated By: Alfreda Conrad MD Signed By: <Electronically signed by Alfreda Conrad MD in OV> 05/17/241556 DD/ 54 TD/TT: 05/17/241554 Resource Conservationist: CT chest wo con Reviewed date:06/21/2024 09:58:46 AM Interpretation:TRACYCK 06/21/24 Performing Lab: Notes/Report: [address] [address] [address] Scan Report Signed Patient: Sammi Brush MR#: [id number] : 1945 Acct:[id number] Age/Sex: 79 / F ADM Date: 06/19/24 Loc: HO.CT Attending Dr: Joseph Bingham MD Ordering Physician: Joseph Bingham MD Date of Service: 06/19/24 Procedure(s): CT chest wo IV con Accession Number(s): [id number] cc: Geronimo Goodson MD; Joseph Bingham MD Report Number: [id number]: Total DLP = 124.00 mGy-cm CLINICAL HISTORY: R91.8 - Other nonspecific abnormal finding of lung field CT chest without contrast Comparison: CR/SR - XR CHEST 2V - 05/17/24 15:[address]/IL/SR - CT CHEST WO IV CON - 05/01/23 13:[address]/SR - CT CHEST WO IV CON - 01/25/22 09:[address] - CT CHEST WO CON - 01/20/21 14:07 EDT Findings: Stable 4 mm left upper lobe nodule current image 41 series 4. No new or progressive lung nodules. Stable scarring within the medial segment right middle lobe and inferior lingula similar to priors including 2020 CT. Lungs are otherwise well aerated. No consolidation. No pleural effusion or pneumothorax. Stable mild changes of centrilobular emphysema. Stable biapical pleural scarring. Thoracic inlet intact. Normal caliber thoracic aorta and pulmonary trunk. Normal heart size. Mild coronary artery calcification. Dense calcification of the mitral annulus. Mild calcification of the aortic annulus. Trace pericardial effusion or thickening. No enlarged mediastinal or hilar lymph nodes. Esophagus within normal limits. No hiatal hernia. No acute process evident upper abdomen. No acute or aggressive appearing bone lesion. Generalized thoracic spondylosis with dextroscoliosis. Impression: Stable 4 mm left upper lobe pulmonary nodule. Per Fleischner society guidelines. No additional follow-up required. Stable linear parenchymal lung changes in the right middle lobe and lingula compatible with postinflammatory scarring. This document has been electronically signed by: Ricardo Nicholas MD on 06/20/2024 12:03:54 Dictated By: Ricardo Nicholas MD Signed By: <Electronically signed by Ricardo Nicholas MD in OV> 06/20/24 1204 DD/ 1203 TD/TT: 06/20/24 1203 Resource Conservationist: [address] [address] [address] Scan Report Signed Patient: Sammi Brush MR#: [id number] : 1945 Acct:[id number] Age/Sex: 79 / F ADM Date: 06/19/24 Loc: HO.CT Attending Dr: Joseph Bingham MD Ordering Physician: Joseph Bingham MD Date of Service: 06/19/24 Procedure(s): CT moreno st wo IV con Accession Number(s): [id number] cc: Geronimo Goodson MD; Joseph Bingham MD Report Number: [id number]: Total DLP = 124.00 mGy-cm CLINICAL HISTORY: R9 1.8 - Other nonspecific abnormal finding of lung field CT chest without contrast Comparison: CR/SR - XR CHEST 2V - 05/17/24 15:[address]/IL/SR - CT CHEST WO IV CON - 05/01/23 13:[address]/SR - CT CHEST WO IV CON - 01/25/22 09:[address] - CT CHEST WO CON - 01/20/21 14:07 EDT Findings: Stable 4 mm left upp er lobe nodule current image 41 series 4. No new or progressiv e lung nodules. Stable scarring within the medial segment right middle lobe and inferior lingula similar to priors including 2020 CT. Lungs are otherwise well aerated. No consolidation. No pleural effusion or pneumothorax. Stable mild changes of centrilobular emphysema. Stable biapical pleural scarring. Thoracic inlet intac t. Normal caliber thoracic aorta and pulmonary trunk. Normal heart size. M ild coronary artery calcification. Dense calcification of the mitral annulu s. Mild calcification of the aortic annulus. Trace pericardial effusion or thickening. No enlarged mediasti nal or hilar lymph nodes. Esophagus within normal limits. No hiatal hernia. No acute process evident upper abdomen. No acute or aggressi ve appearing bone lesion. Generalized thoracic spondylosis with dextroscoliosis. Impression: Stable 4 mm left upp er lobe pulmonary nodule. Per Fleischner socie [place] guidelines. No additional follow-up required. Stable linear parenchymal lung changes in the right middle lobe and lingula compatible w ith postinflammatory scarring. This document has be en electronically signed by: Ricardo Nicholas MD on 06/20/2024 12:03:54 Dictated By: Ricardo Nicholas MD Signed By: <Electronically signed by Ricardo Nicholas MD in OV> 06/20/24 1204 DD/ 1203 TD/TT: 06/20/24 1203 Resource Conservationist: Free T4 (Free Thyroxine) Reviewed date:10/10/2024 04:13:33 PM Interpretation: Performing Lab:[facility], [address] [place] [phone] Notes/Report: Free T4 (Free Thyroxine) 0.90 0.71-1.85 ng/dL Anish Watts Reviewed date:10/10/2024 12:34:41 PM Interpretation: Performing Lab:[facility], [address] [place] [phone] Notes/Report: Anish Watts See Note Specimen held untested for 24 hours; Call to request Chemistry testing. Reason For Referral No Information Medications Medication SIG (Take, Route, Frequency, Duration) Notes Start Date End Date Status CeleBREX 200 MG 1 capsule with food Orally Once a day Active Atorvastatin Calcium 20 MG TAKE 1 TABLET ONCE DAILY Act tamiko Advair Diskus 250-50 MCG/DOSE 1 puff Inhalation Twice a day Active Indomethacin 50 MG TAKE 1 CAPSULE BY [facility] THREE TIMES DAILY WITH FOOD OR MILK FOR 10 DAYS for 10 Not-Taking Folic Acid 1 MG 1 tablet Orally Once a day for 30 day(s) Not-Taking Semaglutide (1 MG/DOSE) 2 MG/1.5ML 10 units every 2 weeks Subcutaneous Not-Taking Alendronate Sodium 70 MG TAKE 1 TAB BY M [facility] ONCE A WEEK ON AN EMPTY STOMACH WITH A FULL GLASS OF WATER. REMAIN UPRIGHT AND NO OTHER FOOD/DRINK FOR 30 MINS for 84 Active Hyoscyamine Sulfate 0.125 MG 1 tablet under the tongue and allow to dissolve as needed Sublingual Three times a day as sleepy 11/23/2021 Not-Taking PARoxetine HCl 20 MG TAKE 1 TABLET EVERY MORNING for 90 Active Valium 5 MG 1 tablet as needed Orally Once a day for 30 days 09/23/2022 Not-Taking Linzess 72 MCG 1 capsule at least 3 0 minutes before the first meal of the day on an empty stomach Orally Once a day for 30 day(s) 12/15/2022 Active CeleBREX 200 MG 1 capsule with food Orally Once a day for 30 day(s) 03/24/2022 Not-Taking Synthroid 100 MCG 1 tablet in the morn ing on an empty stomach Orally Once a day for 90 days 07/25/2024 Active Singulair 10 MG 1 tablet Orally Once a day for 30 day(s) Not-Taking traZODone HCl 50 MG TAKE 1 TABLET BY DANISH TH EVERY DAY AT BEDTIME NEEDED for 90 Active LORazepam 0.5 MG 1 tablet at bedtime as needed Orally Once a day for 10 days 08/24/2020 Not-Taking Synthroid 112 MCG 1 tablet in the morn ing on an empty stomach Orally Once a day for 90 days 08/08/2022 Active Flonase 50.0 USE 2 SPRAYS TWICE I N EACH NOSTRIL EVERY DAY Nasally Once a day for 30 Not-Taking Immunizations Vaccine Route Administration Date Status Comme nts Shingles IM Intramuscular 06/28/2011 Administered Fluarix Quadrivalent IM Intramuscular 02/05/2013 Administered Flu Vaccine IM Intramuscular 03/15/2014 Administered [facility] Fluarix Quadrivalent IM Intramuscular 03/10/2015 Administered Flu Vaccine IM Intramuscular 04/09/2016 Administered pt wa s given the vaccine at [facility] in [place]. Flu Vaccine IM Intramuscular 04/09/2016 Administered [facility] - Fluvirin PPSV23 (Pnemovax) IM Intramuscular 08/25/2016 Administered Flu Vaccine IM Intramuscular 03/29/2017 Administered pt wa s given the vaccine at [facility] in [place] on [facility]. Prevnar 13 IM Intramuscular 01/09/2018 Administered Fluarix Quadrivalent Unknown 03/19/2018 Administered [facility] TDaP Unknown 11/15/2016 Administered [place] [facility] [place] Influenza High Dose NS Nasal 02/26/2019 Administered pt was given the vaccine at [facility] in [place]. Fluarix Quadrivalent Unknown 02/01/2020 Administered Shingrix Unknown 02/06/2019 [facility]ered [facility] Shingrix Unknown 01/07/2020 [facility] but [facility] Covid Vaccine Unknown 06/02/2020 Administered Moderna Covid Vaccine Unknown 06/23/2020 Administered Influenza High Dose IM Intramuscular 01/22/2021 Administered SARS-COV-2 Pfizer Unknown 02/10/2021 Administered SARS-COV-2 Pfizer Unknown 09/14/2021 Administered [facility] Influenza High Dose Unknown 02/22/2022 [facility]ered [facility] SARS-COV-2 Pfizer Unknown 02/28/2022 Administered Influenza High Dose IM Intramuscular 02/10/2023 Administered SARS-COV-2 Pfizer Unknown 02/16/2023 [facility]ered [facility] RSV Unknown 02/05/2024 [facility]ered [facility] Influenza High Dose Unknown 02/29/2024 Administered SARS-COV-2 Pfizer Unknown 03/07/2024 Administered [facility] PPSV23 (Pnemovax) Unknown 04/27/2015 Refused Social History Tobacco Use: Social History Observation Description Date Details (start date - stop date) Former Smoker NA - NA Tobacco Use/Smoking Question Answer Notes Patient is a former smoker How long has it been since y ou last smoked? > 10 years Additional Findings: Tobacco Non-User Fo rmer smoker, currently using no form of tobacco Alcohol Screen Question Answer Notes Did you have a drink contain ing alcohol in the past year? Yes How often did you have a dri nk containing alcohol in the past year? Monthly or less (1 point) How many drinks did you have on a typical day when you were drinking in the past year? 1 or 2 drinks (0 point) How often did you have 6 or more drinks on one occasion in the past year? Never (0 point) Points 1 Interpretation Negative AUDIT-C (Standard) Question Answer Notes Did you [...] Never (0 point) Points 2 Interpretation Negative Problems Problem Type SNOMED Code ICD Code Onset Dates Problem Status W/U Status Risk Notes Problem 329566879 Paroxysmal atria l fibrillation (I48.0) Active confirmed Problem 425632772 Cellulitis of fa ce (L03.211) Active confirmed Problem 848890328 Other specified menopausal and perimenopausal disorders (N95.8) Active confirmed Problem 9773778 Arthritis (M19.90) Active confirmed Problem 437032143 Tubular adenoma of colon (D12.6) Active confirmed Problem 227879830 Acquired hypothyroidism (E03.9) Active confirmed Problem 913925903 Mild intermitten t asthma without complication (J45.20) Active confirmed Problem 7163994 Prediabetes (R73.09) Active confirmed Problem 670521533 Lung nodule (R91.1) Active confirmed Problem 25984896 Labile hypertens ion (I10) Active confirmed Problem 452358478 Schatzki's ring (K22.2) Active confirmed Problem 99778701 Constipation, unspecified constipation type (K59.00) Active confirmed Problem Solitary sacroiliitis (071682778) Sacroiliac inflammation (M46.1) Active confirmed Problem Irritable bowel syndrome characterized by constipation (376642857) Irritable bowel syndrome with constipation (K58.9) Active confirmed Problem 423877522 Pure hypercholesterolemia (E78.00) Active confirmed Problem 559366091 Generalized arth ritis (M19.90) Active confirmed Problem 034993800 Arthritis of kne e (M17.10) Active confirmed Problem Idiopathic gout (91172673) Acute idiopathic gout, unspecified site (M10.00) Active confirmed Problem Rotator cuff arthropathy of left shoulder (50480434617720 100) Rotator cuff arthropathy of left shoulder (M12.812) Active confirmed Problem 93541689 Parotiditis (K11.20) Active confirmed Problem 961915895 Coronary artery calcification (I25.10) Active confirmed Vital Signs Blood pressure diastolic 50 mm Hg 01/07/2025 dwayne ght is down 3 pounds since 6-5-25 standing BP 82/40 Height 64 in 01/07/2025 weight is down 3 pounds since 6-5-25 standing BP 82/40 Blood pressure systolic 112 mm Hg 01/07/2025 weig ht is down 3 pounds since 6-5-25 standing BP 82/40 Weight 143 lbs 01/07/2025 weight is down 3 pounds since 6-5-25 standing BP 82/40 BMI 24.54 kg/m2 01/07/2025 weight is down 3 pounds since 6-5-25 standing BP 82/40 Encounters Encounter Location Date Provider Diagnosis Geronimo Goodson MD [address] [place] [id number] 10/10/2024 Geronimo Goodson Prediabetes R73.09 ; Acquired hypothyroidism E03.9 ; Pure hypercholesterolemia E78.00 and Labile hypertension I10 Geronimo Goodson MD [address] [place] [address] Drive [address] [place] [id number] 01/07/2025 Geronimo Goodson Light headed R42 and Orthostatic hypotension I95.1 Geronimo Goodson MD [address] [place] [address] [id number] 06/11/2024 Geronimo Goodson Mild intermittent as thma without complication J45.20 Geronimo Goodson MD [address] [place] [address] [id number] 06/21/2024 Geronimo Goodson Coronary artery calcification I25.10 Geronimo Goodson MD [address] [place] [address] [id number] 08/05/2024 Geronimo Goodson Rotator cuff arthrop athy of left shoulder M12.812 and Chronic constipation K59.09 Geronimo Goodson MD [address] [place] [address] [id number] 10/17/2024 Geronimo Goodson Prediabetes R73.09 ; Acquired hypothyroidism E03.9 ; Pure hypercholesterolemia E78.00 ; Labile hypertension I10 ; Arthritis M19.90 ; Mild intermittent asthma without complication J45.20 and Depression screening Z13.31 Geronimo Goodson MD [address] [place] [id number] 04/16/2024 Geronimo Goodson MD [address] [place] [address] [id number] 04/19/2024 Geronimo Goodson Irritable bowel synd brenda with constipation K58.9 Geronimo Goodson MD [address] [place] [address] [id number] 04/30/2024 Geronimo Goodson MD [address] [place] [address] [id number] 06/14/2024 Geronimo Goodson Mild intermittent as thma without complication J45.20 Geronimo Goodson MD [address] [place] [address] [id number] 06/17/2024 Geronimo Goodson Mild intermittent as thma without complication J45.20 Geronimo Goodson MD [address] [place] [address] [id number] 07/25/2024 Geronimo Goodson Acquired hypothyroid ism E03.9 Assessments Encounter Date Diagnosis (ICD Code) Assessment Notes Treatment Notes Treatment Clinical Notes Section Notes 10/10/2024 Prediabetes (ICD-10 - R73.09) 01/07/2025 Light headed (ICD-10 - R42) 01/07/2025 Orthostatic hypotens ion (ICD-10 - I95.1) 06/11/2024 Mild intermittent asthma without complication (ICD-10 - J45.20) is going to use her advair that she has at home, verbalized understanding of medication and directions for use 06/21/2024 Coronary artery calcification (ICD-10 - I25.10) discussed CT ascan resuts with patient, and explained that sometimes this means athersclerosis and a cardiac ct would give ore info. she is going to think about it 08/05/2024 Rotator cuff arthropathy of left shoulder (ICD-10 - M12.812) [facility], pending evaluation with [facility]/ INFO GIVEN REGARDING [facility] 08/05/2024 Chronic constipation (ICD-10 - K59.09) needs to go back to dr thomas.try taking the linzess every 3 days/ [facility] DID NOT WANT ME TO SEND A REFERRAL TO [facility] 10/17/2024 Prediabetes (ICD-10 - R73.09) good a1c, no riccardo for medication at this time, will continue to monitor 10/17/2024 Acquired hypothyroid ism (ICD-10 - E03.9) stable, will continue current regiment 04/19/2024 Irritable bowel syndrome with constipation (ICD-10 - K58.9) 06/14/2024 Mild intermittent asthma without complication (ICD-10 - J45.20) 06/17/2024 Mild intermittent asthma without complication (ICD-10 - J45.20) 07/25/2024 Acquired hypothyroid ism (ICD-10 - E03.9) 10/10/2024 Acquired hypothyroid ism (ICD-10 - E03.9) 10/17/2024 Pure hypercholesterolemia (ICD-10 - E78.00) well controlled, will continue current regiment 10/10/2024 Pure hypercholesterolemia (ICD-10 - E78.00) 10/17/2024 Labile hypertension (ICD-10 - I10) doing well, will continue to monitor 10/10/2024 Labile hypertension (ICD-10 - I10) 10/17/2024 Arthritis (ICD-10 - M19.90) stable, will continue current regoment 10/17/2024 Mild intermittent asthma without complication (ICD-10 - J45.20) doing well, will continue current regiment 10/17/2024 Depression screening (ICD-10 - Z13.31) negative screen Plan Of Treatment Pending Test Test Name Order Date Electrocardiogram (EKG) 06/06/2019 CBC (INCLUDES DIFF/PLT) 09/18/2020 VITAMIN B12 AND FOLATE 01/07/2025 XR CHEST 2 VIEW PA & LAT 09/18/2020 XR SACROILIAC JOINTS 3 VIEWS 08/06/2021 BONE DENSITY DEXA 04/15/2021 Complete Blood Count Auto Diff 5 Comprehensive Daniel. Panel Fast 5 IRON PROFILE 01/07/2025 TSH reflex Free T4 01/07/2025 CT chest wo con 05/18/2023 Next Appt Details Provider Name:Geronimo caban, 01/14/2025 08:00:00 AM, [address] [place] [address], [address], [phone], Provider Name:Geronimo caban, 01/16/2025 11:15:00 AM, [address] [place] [address], [address], [phone], Provider Name:Geronimo Bernal ier, 04/14/2025 07:45:00 AM, [address] [place] [address], [address], [phone], Provider Name:Geronimo canadar, 04/21/2025 01:30:00 PM, [address] [place] [address], [phone], Provider Name:Geronimo canadar, 10/13/2025 07:45:00 AM, [address] [place] [address], [address], [phone], Provider Name:Geronimo canadar, 10/20/2025 01:00:00 PM, [address] [place] [address] [place], [phone], Insurance Providers Payer Name Payer Address Payer Phone Subscriber Number Group Number Insured Name Patient Relationship to Insured Coverage Start Date Coverage End Date [employer] [address] [place] [address] [id number] Sammi Brush Self - patient is the insured 7 [employer] MEDICARE SUPPLEMENT [address] [address] [place] [address] [id number] Sammi Brush Self - patient is the insured Medical (General) History Medical History History ICD Code colonoscopy due 2011 being d one apr 2013; colonoscopy 02/19/2014 - repeat 5 years; Colonoscopy 04/04/[address] Thomas - repeat 5 years(2023) Lung nodule too small to require treatme nt per Fleischner criteria 2020 colonoscopy 2023 no need for further hematuria work up 2021
[2025-01-09 09:00] LABS: MANUAL DIFF FLAG NO
--- OUTSIDE RECORDS SUMMARY | 2025-01-09 09:09 | XMS_ITS | Patient Health Record ---
Author Organization Geronimo Goodson MD Address [address] [place], [place] [address] Care Team Providers Care Assistant County Engineer Name Role Phone Geronimo Goodson Primary Care Provider Allergies Allergen (clinical drug ingredient) Drug/Non Drug Allergy documented on EMR Reaction Allergy Type Onset Date Status azithromycin Z-Pack (uncoded) itchy rash Allergy Active epinephrine (uncoded) palpitations Allergy Active Results Component Value Reference Range Notes Complete Blood Count Auto Di ff Reviewed date:10/10/2024 04:33:04 PM Interpretation: Performing Lab:[facility], [address] [place] [phone] Notes/Report: White Blood Count 4.8 4.8-10.8 X10*3/uL [...] NRBC Abs Auto 0.000 0.0-0.012 X10*3/uL Comprehensive [place]. Panel Fa Reviewed date:10/10/2024 04:12:05 PM Interpretation: Performing Lab:[facility], [address] [place] [phone] Notes/Report: Sodium 145 135-145 mmol/L Potassium 4.3 [...] Panel Reviewed date:10/10/2024 04:12:27 PM Interpretation: Performing Lab:[facility], [address] [place] [phone] Notes/Report: Triglycerides 52 <150 mg/dL Desirable Triglyceride: [...] date:10/10/2024 04:12:52 PM Interpretation:TRACY 6/5 TSH Performing Lab:[facility], [address] [place] [phone] Notes/Report: TSH reflex Free T4 5.09 0.32-4.0 uIU/mL Microalbumin, Random Reviewed date:10/10/2024 12:35:03 PM Interpretation: Performing Lab:[facility], [address] [place] [phone] Notes/Report: Creatinine Urine 51.13 Microalbumin Urine 6.0 Microalbum/Creatinine Ratio Ur 11.7 <30 ug/mg cr Albumin/Creatinine Ratio Reference Ranges: Normal: < 30 ug/mg creatinine Microalbuminuria: 30 - 300 ug/mg creatinine Clinical Albuminuria: > 300 ug/mg creatinine Hemoglobin A1c Reviewed date:10/10/2024 12:34:32 PM Interpretation: Performing Lab:[facility], [address] [place] [phone] Notes/Report: Hemoglobin A1c % 5.4 <6.0 % [...] average glucose, using the formula of the S9K-Cnbgler Average Glucose study (ADAG), Diabetes Care, Vol.31,#8, 2007 UA ClnCatch+Micro w/rflx Cul t Reviewed date:10/10/2024 07:10:42 PM Interpretation: Performing Lab:[facility], [address] [place] [phone] Notes/Report: Urine, Clean Catch Color Urine Yellow Appearance Urine Clear PH 7.5 5.0-9.0 Glucose Urine UA Negative Negative mg/dL Urine Blood Negative Negative Specific [place] - Urine 1.010 1.005-1.025 Urine Protein Negative Neg-Trace mg/dL Urine Ketones Negative Negative mg/dL Nitrite Urine Negative Negative Leukocyte Esterase Urine Trace Negative RBC Urine 0-2 0-2 /HPF WBC Urine 0-5 0-5 /HPF Squamous Epithelial Cell Urine 0-2 0-2 /HPF Bacteria Urine None Seen None Seen Hyaline Casts Urine 0-2 0-2 /LPF XR chest 2V Reviewed date:05/17/2024 04:49:00 PM Interpretation: Performing Lab: Notes/Report: [address] [address] XRay Report Signed Patient: Sammi Brush MR#: [id number] : 1945 Acct:[id number] Age/Sex: 79 / F ADM Date: 05/17/24 Loc: DEANDRA Attending Dr: Viri Physician Ordering Physician: Ramos Muse Date of Service: 05/17/24 Procedure(s): XR chest 2V Accession Number(s): [id number] cc: Ramos Muse; Geronimo Goodson MD CLINICAL [...] in OV> 05/17/241556 DD/ 54 TD/TT: 05/17/241554 Shoe Lacer: [address] [address] XRay Report Signed Patient: Sammi Brush MR#: [id number] : 1945 Acct:[id number] Age/Sex: 79 / F ADM Date: 05/17/24 Loc: HO.XRAY Attending Dr: Klaus caldwell Physician Ordering Physician: Ramos Muse Date of Service: 05/17/24 Procedure(s): XR moreno st 2V Accession Number(s): [id number] cc: Olga Muse; Geronimo Goodson MD CLINICAL [...] in OV> 05/17/241556 DD/ 54 TD/TT: 05/17/241554 Shoe Lacer: CT chest wo con Reviewed date:06/21/2024 09:58:46 AM Interpretation:TRACYCK 06/21/24 Performing Lab: Notes/Report: [address] [address] [address] Scan Report Signed Patient: Sammi Brush MR#: [id number] : 1945 Acct:[id number] Age/Sex: 79 / F ADM Date: 06/19/24 Loc: HO.CT Attending Dr: Joseph Bingham MD Ordering Physician: Joseph Bingham MD Date of Service: 06/19/24 Procedure(s): CT chest wo IV con Accession Number(s): [id number] cc: Geronimo Goodson MD; Joseph Bingham MD Report Number: [id number]: Total DLP = 124.00 mGy-cm CLINICAL HISTORY: R91.8 - Other nonspecific abnormal finding of lung field CT chest without contrast Comparison: CR/SR - XR CHEST 2V - 05/17/24 15:[address]/SD/SR - CT CHEST WO IV CON - [...] 06/20/24 1204 DD/ 1203 TD/TT: 06/20/24 1203 Shoe Lacer: [address] [address] [address] Scan Report Signed Patient: Sammi Brush MR#: [id number] : 1945 Acct:[id number] Age/Sex: 79 / F ADM Date: 06/19/24 Loc: HO.CT Attending Dr: Joseph Bingham MD Ordering Physician: Joseph Bingham MD Date of Service: 06/19/24 Procedure(s): CT moreno st wo IV con Accession Number(s): [id number] cc: Geronimo Goodson MD; Joseph Bingham MD Report Number: [id number]: Total DLP = 124.00 mGy-cm CLINICAL HISTORY: R9 1.8 - Other nonspecific abnormal finding of lung field CT chest without contrast Comparison: CR/SR - XR CHEST 2V - 05/17/24 15:[address]/SD/SR - CT CHEST WO IV CON - [...] 06/20/24 1204 DD/ 1203 TD/TT: 06/20/24 1203 Shoe Lacer: Free T4 (Free Thyroxine) Reviewed date:10/10/2024 04:13:33 PM Interpretation: Performing Lab:[facility], [address] [place] [phone] Notes/Report: Free T4 (Free Thyroxine) 0.90 0.71-1.85 ng/dL Anish Watts Reviewed date:10/10/2024 12:34:41 PM Interpretation: Performing Lab:[facility], [address] [place] [phone] Notes/Report: Anish Watts See Note Specimen held [...] 50 MG TAKE 1 CAPSULE BY MO [facility] THREE TIMES DAILY WITH FOOD OR MILK FOR 10 DAYS for 10 Not-Taking Folic Acid 1 MG 1 tablet Orally Once a day for 30 day(s) Not-Taking Semaglutide (1 MG/DOSE) 2 MG/1.5ML 10 units every 2 weeks Subcutaneous Not-Taking Alendronate Sodium 70 MG TAKE 1 TAB BY M [facility] ONCE A WEEK ON [...] Administered Flu Vaccine IM Intramuscular 03/15/2014 Administered [facility] Fluarix Quadrivalent IM Intramuscular 03/10/2015 Administered Flu Vaccine IM Intramuscular 04/09/2016 Administered pt wa s given the vaccine at [facility] in [place]. Flu Vaccine IM Intramuscular 04/09/2016 Administered [facility] - Fluvirin PPSV23 (Pnemovax) IM Intramuscular 08/25/2016 Administered Flu Vaccine IM Intramuscular 03/29/2017 Administered pt wa s given the vaccine at [facility] in [place] on [facility]. Prevnar 13 IM Intramuscular 01/09/2018 Administered Fluarix Quadrivalent Unknown 03/19/2018 Administered [facility] TDaP Unknown 11/15/2016 Administered At at [facility] Influenza High Dose NS Nasal 02/26/2019 Administered pt was given the vaccine at [facility] in [place]. Fluarix Quadrivalent Unknown 02/01/2020 Administered Shingrix Unknown [...] Problem Status W/U Status Risk Notes Problem 678767833 Paroxysmal atria l fibrillation (I48.0) Active confirmed Problem 222031980 Cellulitis of fa ce (L03.211) Active confirmed Problem 031373645 Other specified menopausal and perimenopausal disorders (N95.8) Active confirmed Problem 0513295 Arthritis (M19.90) Active confirmed Problem 796575411 Tubular adenoma of colon (D12.6) Active confirmed Problem 116079487 Acquired hypothyroidism (E03.9) Active confirmed Problem 959014209 Mild intermitten t asthma without complication (J45.20) Active confirmed Problem 2141318 Prediabetes (R73.09) Active confirmed Problem 101071486 Lung nodule (R91.1) Active confirmed Problem 25233533 Labile hypertens ion (I10) Active confirmed Problem 251126316 Schatzki's ring (K22.2) Active confirmed Problem 77604675 Constipation, unspecified constipation type (K59.00) Active confirmed Problem Solitary sacroiliitis (627418788) Sacroiliac inflammation (M46.1) Active confirmed Problem Irritable bowel syndrome characterized by constipation (043841097) Irritable bowel syndrome with constipation (K58.9) Active confirmed Problem 679922915 Pure hypercholesterolemia (E78.00) Active confirmed Problem 424924845 Generalized arth ritis (M19.90) Active confirmed Problem 157824043 Arthritis of kne e (M17.10) Active confirmed Problem Idiopathic gout (79590048) Acute idiopathic gout, unspecified site (M10.00) Active confirmed Problem Rotator cuff arthropathy of left shoulder (39824366495621 100) Rotator cuff arthropathy of left shoulder (M12.812) Active confirmed Problem 20359223 Parotiditis (K11.20) Active confirmed Problem 261863857 Coronary artery calcification (I25.10) Active confirmed Vital [...] Geronimo Goodson MD [address] [place] [id number] 10/10/2024 Geronimo Goodson Prediabetes R73.09 ; Acquired hypothyroidism E03.9 ; Pure hypercholesterolemia E78.00 and Labile hypertension I10 Geronimo Goodson MD [address] [place] [address] Drive [address] [place] [id number] 01/07/2025 Geronimo Goodson Light headed R42 and Orthostatic hypotension I95.1 Geronimo Good[address] MD [address] [place] [address] [id number] 06/11/2024 Geronimo Goodson Mild intermittent as thma without complication J45.20 Geronimo Goodson MD [address] [place] [address] [id number] 06/21/2024 Geronimo Goodson Coronary artery calcification I25.10 Geronimo Goosdon MD [address] [place] [address] [id number] 08/05/2024 Geronimo Goodson Rotator cuff arthrop athy of left shoulder M12.812 and Chronic constipation K59.09 Geronimo Goodson MD [address] [place] [address] [id number] 10/17/2024 Geronimo Goodson Prediabetes R73.09 ; Acquired hypothyroidism E03.9 ; Pure hypercholesterolemia E78.00 ; Labile hypertension I10 ; Arthritis M19.90 ; Mild intermittent asthma without complication J45.20 and Depression screening Z13.31 Geronimo Goodson MD [address] [place] [address] [id number] 04/16/2024 Geronimo Goodson MD [address] [place] [address] [id number] 04/19/2024 Geronimo Goodson Irritable bowel synd brenda with constipation K58.9 Geronimo Goodson MD [address] [place] [address] [id number] 04/30/2024 Geronimo Goodson MD [address] [place] [address] [id number] 06/14/2024 Geronimo Goodson Mild intermittent as thma without complication J45.20 Geronimo Goodson MD [address] [place] [address] [id number] 06/17/2024 Geronimo Goodson Mild intermittent as thma without complication J45.20 Geronimo Goodson MD [address] [place] [address] [id number] 07/25/2024 Geronimo Goodson Acquired hypothyroid ism E03.9 [...] Complete Blood Count Auto Diff 5 Comprehensive [place]. Panel Fast 5 IRON PROFILE 01/07/2025 TSH reflex Free T4 01/07/2025 CT chest wo con 05/18/2023 Next Appt Details Provider Name:Geronimo caban, 01/14/2025 08:00:00 AM, [address] [place] [address], [address], [phone], Provider Name:Geronimo caban, 01/16/2025 11:15:00 AM, [address] [place] [address], [address], [phone], Provider Name:Geronimo Bernal ier, 04/14/2025 07:45:00 AM, [address] [place] [address], [address], [phone], Provider Name:Geronimo canadar, 04/21/2025 01:30:00 PM, [address] [place] [address], [phone], Provider Name:Geronimo canadar, 10/13/2025 07:45:00 AM, [address] [place] [address], [address], [phone], Provider Name:Geronimo canadar, 10/20/2025 01:00:00 PM, [address] [place] [address] [place], [phone], Insurance Providers Payer Name Payer Address Payer Phone Subscriber Number Group Number Insured Name Patient Relationship to Insured Coverage Start Date Coverage End Date MEDICARE [employer] [address] [place] [address] [id number] Sammi Brush Self - patient is the insured 7 [employer] MEDICARE SUPPLEMENT [address] [address] [place] [address] [id number] Sammi Brush Self - patient is [...]
--- OUTSIDE RECORDS SUMMARY | 2025-01-09 09:09 | XMS_ITS | Patient Health Record ---
Author Organization [facility] Address [address] [place] [address] Care Team Providers Care Procurement Manager Name Role Phone Kellee NICOLE, Geronimo Primary Care Provider Kenji Abbott Unavailable [phone] Allergies Allergen (clinical drug ingredient) Drug/Non Drug [...] Problem Status W/U Status Risk Notes Problem 720604844 Encounter for screening for malignant neoplasm of colon (Z12.11) Active confirmed Problem 756134403 History of adenomatous polyp of colon (Z86.010) Active confirmed Problem History of polyp of colon (situation) (169474922) Personal history of colonic polyps (Z86.010) Active confirmed Problem Diverticular disease of colon (133407331) Diverticulosis of large intestine without perforation or abscess without bleeding (K57.30) Active confirmed Problem 154168133547205 Preprocedural examination (Z01.818) Active confirmed Problem 43205749 Constipation, unspecified constipation type (K59.00) Active confirmed Problem 025155970 Anemia, unspecified type (D64.9) Active confirmed Problem 743234287 Left lower quadrant abdominal pain (R10.32) Active [...] Date MEDICARE OF [place] [address] [place] [address] [id number] RUMA WEST Self - patient is the insured [facility] [address] [address] [place] [address] [id number] RUMA WEST Self - patient is the insured Medical (General) History Medical History History ICD Code Colonoscopy 04-28-2003-neg. except for a hyperplastic polyp and internal hemorrhoids Hypothroidism Episode SVT Elevated cholesterol Denies VA,DM,CVA,Lung disease,renal dise ase IBS--better with Paxil Colonoscopy 02/2014-1 small tubular elizabeth vimal removed Colonoscopy in March of 2019 with rem oval of a small tubular adenoma Surgical History Surgery Date(Month/Year) Appendectomy Right knee replacement 05/2016 left knee replacement 2020 Elbow fracture 11/2016
--- OUTSIDE RECORDS SUMMARY | 2025-01-09 09:09 | XMS_ITS | Clinical Summary ---
Author Organization [facility] Address [address] [facility] [address] [place] [address] Phone Care Team Providers Care Stunt Driver Name Role Phone Geronimo Goodson MD Primary [...] Upcoming Encounters Date Type Department Care Team ([facility] Contact Info) Description 05/18/2026 10:00 AM EST Office Visit [facility] in [address] [place] [address] Jaspal Figueroa MD, PhD [address] [facility] [address] [place] [address] [email or web address] Health Maintenance Due Date Last Done Comments [...] MEDICARE PART A & B MELIDA WOMACK [id number] [address]ARE PART A & [place] [address] [place] [address] MEDICARE SUPPLEMENT MEDICARE PART A & B MEDICARE PART A & B MEDICARE SUPPLEMENT MEDICARE PART A & B MEDICARE SUPPLEMENT MEDICARE PART A & B IRA MEDICARE SUPPLEMENT MEDICARE PART A & B Care Teams Stunt Driver Relationship Specialty Start Date End Date Geronimo Goodson MD [address] [place] [address] [place] [address] PCP - General Internal Medicine 05/02/22 Additional Source Comments The information contained in this document represents components of the legal health record. It is not the complete legal health record.[facility]
--- OUTSIDE RECORDS SUMMARY | 2025-01-09 09:09 | XMS_ITS ---
Author Name [facility] Organization Unknown History of Medication Use Medication Directions Dispensed Refills Start Date End Date Stat us paroxetine HCl completed trazodone completed [facility] completed atorvastatin completed celecoxib completed Advil completed Synthroid completed Allergies Allergen Reaction Severity Comment Documented Date Source Statu s EPINEPHRINE OTHER: TACHYCARDIA CT_[place] Encounters Encounter Type Encounter Reason Primary Diagnosis Location Date Ambulatory [facility] 11/13 Care Team Organization Name Specialty Phone Email Start Date End Da te [facility] 10/02/2024 [facility] 10/01/2024
[2025-01-09 09:51] LABS: Hematocrit 34.6 % (37.0-47.0); Hemoglobin 11.4 g/dl (12.0-16.0); Imm Gran Abs Auto 0.01 X10*3/uL (0.00-0.03); Imm Gran Pct Auto 0.2 % (0.0-0.4); Lymphocytes Absolute Auto 1.5 X10*3/uL (1.2-4.9); Mean Corpuscular HGB Conc 32.9 g/dl (31.0-35.0); Mean Corpuscular Hemoglobin 32.9 pg (27.0-33.0); Mean Corpuscular Volume 99.7 fL (80.0-98.0); NRBC Abs Auto 0.000 X10*3/uL (0.0-0.012); NRBC Pct Auto 0.0 /100WBC (0.0-0.2); Platelet Count 157 X10*3/uL (160-400); Red Blood Count 3.47 X10*6/uL (4.20-5.50); White Blood Count 5.5 X10*3/uL (4.8-10.8)
[2025-01-09 10:25] LABS: Alanine Aminotransferase 35 U/L (0-31); Albumin Level 4.1 g/dL (3.5-5.0); Alkaline Phosphatase 59 U/L (39-117); Anion Gap 7 (12-20); Aspartate Amino Transferase 45 U/L (5-31); Blood Urea Nitrogen 16 mg/dL (9-16); Calcium 8.9 mg/dL (8.4-10.2); Carbon Dioxide 30 mmol/L (22-29); Chloride 108 mmol/L (96-108); Estimated Glomerular Filt Rate > 60; Iron 86 mcg/dL (30-160); Percent Iron Saturation 34 % (15-50); Potassium 4.1 mmol/L (3.3-5.1); Sodium 141 mmol/L (135-145); Total Iron Binding Capacity 250 mcg/dL (228-428); Total Protein 6.9 g/dL (6.5-8.0); Unsaturated Iron Binding 164 ug/dL
[2025-01-09 10:52] LABS: Folate 10.3 ng/mL (> or = 4.0); Vitamin B12 991 pg/mL (200-900)
[2025-01-09 11:33] LABS: Free T4 (Free Thyroxine) 0.90 ng/dL (0.71-1.85)
== END 2025-01-09 08:32 | disposition home or self-care (01) ==
LOC: HO.LAB 08:31
PROVIDERS: PCP Internal Medicine; Visit Provider Internal Medicine
DX: R42 Dizziness and giddiness (principal); Z13.21 Encounter for screening for nutritional disorder; Z13.29 Encounter for screening for other suspected endocrine disorder
CPT/HCPCS: 36415; 80053; 82607; 82746; 83540; 84439; 84443; 85025

== ENCOUNTER 2025-04-14 10:27 | Outpatient (REF) | payer MEDICARE, OTHER, SELFPAY ==
[2025-04-14 11:37] LABS: Alanine Aminotransferase 28 U/L (0-31); Albumin Level 4.1 g/dL (3.5-5.0); Alkaline Phosphatase 72 U/L (39-117); Aspartate Amino Transferase 39 U/L (5-31); Cholesterol 171 mg/dL (<200); HDL Cholesterol 63 mg/dL (>40); Iron 141 mcg/dL (30-160); Percent Iron Saturation 56 % (15-50); Total Iron Binding Capacity 254 mcg/dL (228-428); Total Protein 6.9 g/dL (6.5-8.0); Triglycerides 68 mg/dL (<150); Unsaturated Iron Binding 113 ug/dL
[2025-04-14 12:47] LABS: Reflex LDLD? No
--- OUTSIDE RECORDS SUMMARY | 2025-04-14 13:13 | XMS_ITS | Clinical Summary ---
Author Organization [facility] Address [address] [facility] [address] [place] [address] Phone Care Team Providers Care Duplex Trimmer Name Role Phone Geronimo Goodson MD Primary [...] Upcoming Encounters Date Type Department Care Team ([facility] Contact Info) Description 05/18/2026 10:00 AM EST Office Visit [facility] in [address] [place] [address] Jaspal Figueroa MD, PhD [address] [facility], [address] [place] [address] (work) Health Maintenance Due Date Last Done Comments LIPID PANEL 1945 DEPRESSION SCREENING 1959 SMOKING Hx and SMOKELESS TOBACCO SCREENING 1960 HEPATITIS C SCREENING 1965 PNEUMOCOCCAL VACCINES (50+ years) (1 of 1 - PCV) 1997 ZOSTER VACCINES (1 of 2) 1997 OSTEOPOROSIS SCREENING INITIAL (ONE-TIME) 2012 RSV VACCINE (1 - 1-dose 75+ series) 2022 INFLUENZA VACCINE (#1) 2024 02/22/2022 COVID-19 VACCINE ( season) 2025 02/28/2022, 09/14/2021, 02/10/2021, Additional history exists Adult [...] Medical Devices Not on file Insurance MEDICARE PART A & B [facility] Address: [address] [address] MEDICARE PART A & B MEDICARE PART A & B MEDICARE PART A & B Member Subscriber Plan / Payer ( fective 2016-Present) Name:Sammi Arizmendi Member ID:[id number] Relation to Subscriber:Self Name:Sammi Arizmendi Subscriber ID:[id number] Payer ID:[id number] Group ID:Not on file Type:Medicare Address: [employer] [address] MEDICARE SUPPLEMENT MEDICARE PART A & B MEDICARE SUPPLEMENT MEDICARE PART A & B [place] MEDICARE SUPPLEMENT MEDICARE PART A & B Care Teams Duplex Trimmer Relationship Specialty Start Date End Date Geronimo Goodson MD [address] [place] [address] [address] PCP - General Internal Medicine 05/02/22 Additional Source Comments The information contained in this document represents components of the legal health record. It is not the complete legal health record.[facility]
== END 2025-04-14 10:28 | disposition home or self-care (01) ==
LOC: HO.LNP 10:27
PROVIDERS: Visit Provider Internal Medicine
DX: E78.00 Pure hypercholesterolemia, unspecified (principal); R73.09 Other abnormal glucose; Z13.0 Encounter for screening for diseases of the blood and blood-forming organs and certain disorders involving the immune mechanism
CPT/HCPCS: 80061; 80076; 83036; 83540